=== PATIENT | female | born 1950 | race Caucasian/White ===

== ENCOUNTER 2020-07-25 14:16 | Outpatient (REF) | payer MEDICARE, OTHER, SELFPAY | END 2020-07-25 14:17 | disposition home or self-care (01) | LOC: HO.LAB 14:16 | PROVIDERS: Visit Provider Internal Medicine | DX: Z20.822 Contact with and (suspected) exposure to COVID-19 (principal) | CPT/HCPCS: 36415; C9803; U0003 ==

== ENCOUNTER 2020-10-21 10:08 | Outpatient (REF) | payer MEDICARE, OTHER, SELFPAY ==
[2020-10-21 11:20] LABS: MANUAL DIFF FLAG NO
[2020-10-21 11:28] LABS: Basophils Percent Auto 0.3 % (0-2); Eosinophils Absolute Auto 0.1 X10*3/uL (0.0-0.4); Eosinophils Percent Auto 2.2 % (0-4); Hematocrit 41.2 % (37-47); Hemoglobin 13.1 g/dl (12.0-16.0); Imm Gran Abs Auto 0.04 X10*3/uL (0.00-0.03); Imm Gran Pct Auto 0.6 % (0.0-0.4); Lymphocytes Absolute Auto 1.9 X10*3/uL (1.2-4.9); Lymphocytes Percent Auto 29.8 % (20-40); Mean Corpuscular HGB Conc 31.8 g/dl (31.0-35.0); Mean Corpuscular Hemoglobin 30.1 pg (27.0-33.0); Mean Corpuscular Volume 94.7 fL (80-98); Mean Platelet Volume 10.7 fL (9.4-12.3); Monocytes Absolute Auto 0.6 X10*3/uL (0.1-1.2); Monocytes Percent Auto 8.8 % (2-11); Neutrophils Absolute Auto 3.7 X10*3/uL (2.0-8.3); Neutrophils Percent Auto 58.3 % (45-73); Platelet Count 221 X10*3/uL (160-400); Red Blood Count 4.35 X10*6/uL (4.20-5.50); Red Cell Distribution Width 13.2 % (11.0-16.0); White Blood Count 6.4 X10*3/uL (4.8-10.8)
[2020-10-21 12:05] LABS: Alanine Aminotransferase 33 U/L (0-31); Alkaline Phosphatase 76 U/L (39-117); Anion Gap 14 (12-20); Aspartate Amino Transferase 30 U/L (5-31); Bilirubin Total < 0.2 mg/dL (0.0-1.0); Blood Urea Nitrogen 21 mg/dL (9-16); Calcium 9.8 mg/dL (8.4-10.2); Carbon Dioxide 22 mmol/L (22-29); Chloride 111 mmol/L (96-108); Cholesterol 168 mg/dL; Estimated Glomerular Filt Rate > 60; Glucose Fasting 102 mg/dL (60-99); HDL Cholesterol 52 mg/dL; LDL Cholesterol Calculated 90 mg/dl; Potassium 4.7 mmol/L (3.3-5.1); Sodium 142 mmol/L (135-145); Thyroid Stimulating Hormone 2.14 uIU/mL (0.32-4.0); Total Protein 6.5 g/dL (6.5-8.0); Triglycerides 132 mg/dL; Vitamin D 25-OH Total 30.2 ng/mL (>30)
[2020-10-21 12:12] LABS: Folate > 20.0 ng/mL (> or = 4.0); Vitamin B12 1020 pg/mL (200-900)
== END 2020-10-21 10:09 | disposition home or self-care (01) ==
LOC: HO.HMGCLDS 10:08
PROVIDERS: PCP Internal Medicine; Visit Provider Internal Medicine
DX: E78.00 Pure hypercholesterolemia, unspecified (principal); E03.9 Hypothyroidism, unspecified; E66.01 Morbid (severe) obesity due to excess calories; G47.33 Obstructive sleep apnea (adult) (pediatric)
CPT/HCPCS: 36415; 80053; 80061; 82306; 82607; 82746; 84443; 85025

== ENCOUNTER 2020-12-22 13:47 | Outpatient (REF) | payer MEDICARE, OTHER, SELFPAY ==
--- NOTE | ~2020-12-22 | XR_ITS ---
EXAMINATION: XR LUMBAR SPINE XR HIP, RIGHT CLINICAL INFORMATION: Low back pain COMPARISON: Lumbar spine radiograph from 12/24/2018, right hip radiograph from 07/22/2014 TECHNIQUE: 3 views of the lumbar spine. 2 views of the right hip FINDINGS: There are 5 nonrib-bearing lumbar-type vertebral bodies. No acute visible fracture or dislocation. Status post posterior spinal fusion of L2-L3 with bilateral transpedicular screws, rods, and disc spaces are L2-L3. Mild multilevel degenerative changes with disc space narrowing, endplate sclerosis, osteophyte formation, and facet arthropathy. Vertebral body heights and spaces are otherwise maintained. Moderate degenerative changes of the right femoral acetabular joint with joint space narrowing, sclerosis, and periarticular osteophyte formation. Posterior elements are intact. Paraspinal soft tissues are unremarkable. Atherosclerotic calcifications of the aorta. Visualized bowel gas. XR/XR hip RT min 2V IMPRESSION: 1. No acute visible fracture or dislocation. 2. Status post posterior spinal fusion of L2-L3 with intact spinal hardware. 3. Mild multilevel degenerative changes. 4. Moderate degenerative changes of the right femoral acetabular joint.
--- NOTE | ~2020-12-22 | XR_ITS ---
EXAMINATION: XR LUMBAR SPINE XR HIP, RIGHT CLINICAL INFORMATION: Low back pain COMPARISON: Lumbar spine radiograph from 12/24/2018, right hip radiograph from 07/22/2014 TECHNIQUE: 3 views of the lumbar spine. 2 views of the right hip FINDINGS: There are 5 nonrib-bearing lumbar-type vertebral bodies. No acute visible fracture or dislocation. Status post posterior spinal fusion of L2-L3 with bilateral transpedicular screws, rods, and disc spaces are L2-L3. Mild multilevel degenerative changes with disc space narrowing, endplate sclerosis, osteophyte formation, and facet arthropathy. Vertebral body heights and spaces are otherwise maintained. Moderate degenerative changes of the right femoral acetabular joint with joint space narrowing, sclerosis, and periarticular osteophyte formation. Posterior elements are intact. Paraspinal soft tissues are unremarkable. Atherosclerotic calcifications of the aorta. Visualized bowel gas. XR/XR lumbar spine 2-3V IMPRESSION: 1. No acute visible fracture or dislocation. 2. Status post posterior spinal fusion of L2-L3 with intact spinal hardware. 3. Mild multilevel degenerative changes. 4. Moderate degenerative changes of the right femoral acetabular joint.
== END 2020-12-22 13:48 | disposition home or self-care (01) ==
LOC: HO.HMGCX 13:47
PROVIDERS: PCP Internal Medicine; Visit Provider Internal Medicine
DX: M54.5 Low back pain (principal); M43.26 Fusion of spine, lumbar region
CPT/HCPCS: 72100; 73502

== ENCOUNTER → 2021-02-01 09:40 | Outpatient (BNVA) | payer MEDICARE, OTHER, SELFPAY | PROVIDERS: PCP Internal Medicine; Visit Provider Orthopaedic Surgery | DX: M54.9 Dorsalgia, unspecified (principal) | CPT/HCPCS: 99202 ==

== ENCOUNTER 2021-07-17 10:29 | Outpatient (REF) | payer MEDICARE, OTHER, SELFPAY ==
[2021-07-17 11:57] LABS: MANUAL DIFF FLAG NO
[2021-07-17 12:15] LABS: Basophils Percent Auto 0.5 % (0-2); Eosinophils Absolute Auto 0.1 X10*3/uL (0.0-0.4); Eosinophils Percent Auto 1.7 % (0-4); Hematocrit 42.7 % (37.0-47.0); Hemoglobin 13.7 g/dl (12.0-16.0); Imm Gran Abs Auto 0.05 X10*3/uL (0.00-0.03); Imm Gran Pct Auto 0.8 % (0.0-0.4); Lymphocytes Percent Auto 30.7 % (20-40); Mean Corpuscular HGB Conc 32.1 g/dl (31.0-35.0); Mean Corpuscular Hemoglobin 30.4 pg (27.0-33.0); Mean Corpuscular Volume 94.9 fL (80.0-98.0); Mean Platelet Volume 10.6 fL (9.4-12.3); Monocytes Absolute Auto 0.5 X10*3/uL (0.1-1.2); Monocytes Percent Auto 7.7 % (2-11); Neutrophils Absolute Auto 3.9 x10*3/uL (2.0-8.3); Neutrophils Percent Auto 58.6 % (45-73); Platelet Count 247 X10*3/uL (160-400); Red Cell Distribution Width 13.6 % (11.0-16.0); White Blood Count 6.6 X10*3/uL (4.8-10.8)
[2021-07-17 12:34] LABS: Alanine Aminotransferase 39 U/L (0-31); Albumin Level 4.1 g/dL (3.5-5.0); Alkaline Phosphatase 81 U/L (39-117); Anion Gap 12 (12-20); Aspartate Amino Transferase 32 U/L (5-31); Bilirubin Total 0.5 mg/dL (0.0-1.0); Blood Urea Nitrogen 13 mg/dL (9-16); Calcium 10.1 mg/dL (8.4-10.2); Carbon Dioxide 26 mmol/L (22-29); Chloride 110 mmol/L (96-108); Cholesterol 155 mg/dL; Estimated Glomerular Filt Rate > 60; Glucose Fasting 119 mg/dL (60-99); HDL Cholesterol 46 mg/dL; LDL Cholesterol Calculated 80 mg/dl; Potassium 4.3 mmol/L (3.3-5.1); Sodium 144 mmol/L (135-145); Total Protein 6.6 g/dL (6.5-8.0); Triglycerides 148 mg/dL
[2021-07-17 12:38] LABS: Thyroid Stimulating Hormone 1.94 uIU/mL (0.32-4.0); Vitamin D 25-OH Total 33.3 ng/mL (>30)
== END 2021-07-17 10:30 | disposition home or self-care (01) ==
LOC: HO.HMGCLDS 10:29
PROVIDERS: PCP Internal Medicine; Visit Provider Internal Medicine
DX: E78.00 Pure hypercholesterolemia, unspecified (principal); E03.9 Hypothyroidism, unspecified; M54.50 Low back pain, unspecified
CPT/HCPCS: 36415; 80053; 80061; 82306; 84443; 85025

== ENCOUNTER 2022-02-27 10:49 | Outpatient (REF) | payer MEDICARE, OTHER, SELFPAY ==
[2022-02-27 14:11] LABS: MANUAL DIFF FLAG NO
[2022-02-27 14:21] LABS: Basophils Percent Auto 0.5 % (0-2); Eosinophils Absolute Auto 0.2 X10*3/uL (0.0-0.4); Eosinophils Percent Auto 2.4 % (0-4); Hematocrit 43.7 % (37.0-47.0); Hemoglobin 13.9 g/dl (12.0-16.0); Imm Gran Abs Auto 0.03 X10*3/uL (0.00-0.03); Imm Gran Pct Auto 0.5 % (0.0-0.4); Lymphocytes Absolute Auto 1.7 X10*3/uL (1.2-4.9); Lymphocytes Percent Auto 27.6 % (20-40); Mean Corpuscular HGB Conc 31.8 g/dl (31.0-35.0); Mean Corpuscular Hemoglobin 29.8 pg (27.0-33.0); Mean Corpuscular Volume 93.8 fL (80.0-98.0); Mean Platelet Volume 11.1 fL (9.4-12.3); Monocytes Absolute Auto 0.5 X10*3/uL (0.1-1.2); Monocytes Percent Auto 8.2 % (2-11); Neutrophils Absolute Auto 3.8 x10*3/uL (2.0-8.3); Neutrophils Percent Auto 60.8 % (45-73); Platelet Count 235 X10*3/uL (160-400); Red Blood Count 4.66 X10*6/uL (4.20-5.50); Red Cell Distribution Width 12.9 % (11.0-16.0); White Blood Count 6.3 X10*3/uL (4.8-10.8)
[2022-02-27 14:35] LABS: Alanine Aminotransferase 22 U/L (0-31); Albumin Level 4.1 g/dL (3.5-5.0); Alkaline Phosphatase 82 U/L (39-117); Anion Gap 14 (12-20); Aspartate Amino Transferase 22 U/L (5-31); Bilirubin Total 0.5 mg/dL (0.0-1.0); Blood Urea Nitrogen 14 mg/dL (9-16); Calcium 9.6 mg/dL (8.4-10.2); Carbon Dioxide 24 mmol/L (22-29); Chloride 110 mmol/L (96-108); Cholesterol 122 mg/dL; Estimated Glomerular Filt Rate > 60; Glucose Fasting 114 mg/dL (60-99); HDL Cholesterol 43 mg/dL; LDL Cholesterol Calculated 62 mg/dl; Potassium 4.6 mmol/L (3.3-5.1); Sodium 143 mmol/L (135-145); Total Protein 6.4 g/dL (6.5-8.0); Triglycerides 87 mg/dL
[2022-02-27 14:57] LABS: Free T4 (Free Thyroxine) 1.07 ng/dL (0.71-1.85); Thyroid Stimulating Hormone 1.08 uIU/mL (0.32-4.0)
== END 2022-02-27 10:50 | disposition home or self-care (01) ==
LOC: HO.HMGCLDS 10:49
PROVIDERS: PCP Internal Medicine; Visit Provider Internal Medicine
DX: E66.01 Morbid (severe) obesity due to excess calories (principal); E78.00 Pure hypercholesterolemia, unspecified; E03.9 Hypothyroidism, unspecified
CPT/HCPCS: 36415; 80053; 80061; 84439; 84443; 85025

== ENCOUNTER 2023-03-16 09:40 | Outpatient (REF) | payer MEDICARE, OTHER, SELFPAY | END 2023-03-16 09:41 | disposition home or self-care (01) | LOC: HO.MAMMO 09:40 | PROVIDERS: PCP Internal Medicine; Visit Provider Internal Medicine | DX: Z12.31 Encounter for screening mammogram for malignant neoplasm of breast (principal) | CPT/HCPCS: 77063; 77067 ==

== ENCOUNTER → 2023-03-16 09:45 | Outpatient (BNV) | payer MEDICARE, OTHER, SELFPAY | PROVIDERS: PCP Internal Medicine; Visit Provider Radiology Diagnostic Radiology | DX: Z12.31 Encounter for screening mammogram for malignant neoplasm of breast (principal) | CPT/HCPCS: 77063; 77067 ==

== ENCOUNTER 2024-01-02 13:11 | Outpatient (AMB) | payer MEDICARE, OTHER, SELFPAY ==
[2024-01-02 13:17] VITALS: BP 102/64; PULSE 52; O2SAT 99; BMI 39.5
--- NOTE | 2024-01-02 13:17 | A.OFFVIS_ITS ---
Vital Signs 01/02/24 13:17 Height 5 ft 4.5 in Weight 234 lb BMI 39.5 BP 102/64 Blood Pressure Location Lt brachial Position Sitting Pulse 52 Pulse Source Pulse Oximeter Pulse Oximetry (%) 99 Oxygen Delivery Method Room Air Intake Visit Reasons: akosua Intake Note: pt is here as a new patient, for follow up of AKOSUA, and needs a replacement machine. fax number to marily#[phone]. Gum Machine Operator Required: No Allergies codeine [CODEINE] Allergy (Intermediate, Unverified 01/02/24 13:33) HALLUCINATION morphine [MORPHINE] Allergy (Intermediate, Unverified 01/02/24 13:33) NAUSEA & VOMITING, HALLUCINATIONS, nausea and vomiting Codeine Phosphate Allergy (Unknown, Uncoded 01/02/24 13:33) nausea and vomiting Medication List - Last Reconciled 01/02/24 by Bev Niño MD atorvastatin 20 mg PO BEDTIME cyclobenzaprine 10 mg PO TID PRN doxycycline calcium PO levothyroxine (Synthroid) 50 mcg PO DAILY magnesium aspart,citrate,oxide mg PO .bid PRN meloxicam 7.5 mg PO DAILY PRN mirabegron ER (Myrbetriq) 25 mg PO DAILY multivitamin (Daily Multi-Vitamin tablet) 1 tab PO DAILY semaglutide (weight loss) (Wegovy) 1 mg subcut Q7D tizanidine 4 mg PO BID PRN tramadol 50 mg PO .prn vitamin B complex 1 cap PO DAILY Do you need a note to return to daycare/school/sports/work: No HPI HPI akosua: Details: This 73 years old female, is a case of obstructive sleep apnea, and has been using CPAP regularly Her last sleep study was in July 2018 when she had CPAP titration and determine to have moderately severe obstructive sleep apnea. She she was titrated to pressure of 11 cm. Has been using her CPAP very regularly all along, with a nasal mask, And she benefitted from its use. Lately she is having problem with the CPAP device. There is increased air leak, and she has some residual apneas. She is feeling more tired and sleepy during the daytime. She feels that she is not getting enough pressure . Her CPAP device is quite old and she needs replacement. She had COVID infection last year and since then she has somewhat increased bouts of cough and nasal congestion. THIS PATIENT HAS HISTORY OF GROSS OBESITY FOR MANY YEARS, HAS HAD LAPAROSCOPIC GASTRIC SLEEVE SURGERY, AFTER WHICH SHE LOST ABOUT 100 LB OF WEIGHT. BUT RECENTLY SHE HAS REGAINED MOST OF THE WEIGHT. [facility] Medical History (Updated 01/02/24 @ 14:03 by Bev Niño MD) AKOSUA on CPAP Obesity (BMI 30-39.9) Urinary urgency Rosacea Hypothyroidism Hypercholesteremia Surgical History History of removal of laparoscopic gastric banding device Hx of laparoscopic gastric banding H/O Spinal surgery Social History Patient Tobacco Use Status: Former Tobacco user Current occupational status: retired 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 Review of Systems Const All systems reviewed & are unremarkable except as noted in HPI and below Eyes Reports no additional complaints ENT Reports nasal congestion (Mild off and on) Card Denies syncope, Denies irregular heart rhythm and Denies leg edema Resp Reports as per HPI GI Reports no additional complaints Reports other (HAS CHRONIC URINARY URGENCY PROBLEMS) Musc Reports back pain and Reports myalgias Skin/Breast Reports system reviewed and no additional complaints, except as documented Neuro Reports no additional complaints and Denies syncope Psych Reports no additional complaints Endo Reports other (Diabetes mellitus being controlled with meds) Aller/Immun Reports no additional complaints Physical Exam Vital Signs: Last Vital Signs Pulse 52 01/02/24 13:17 BP 102/64 01/02/24 13:17 Pulse Ox 99 01/02/24 13:17 Oxygen Delivery Method Room Air 01/02/24 13:17 BMI result Body Mass Index 39.5 Const General: healthy appearing, comfortable, no acute distress, alert and awake Orientation/consciousness: patient oriented x3 HEENT Head: Yes normal to inspection General nose exam: No nasal polyps present, No nasal discharge present and Other nasal findings present (No active nasal congestion at this time) Face and sinus: Yes sinuses nontender Mouth: oropharynx abnormals (Crowded oropharynx, Mallampati class 3) Throat: Yes posterior oropharynx normal Eyes General: appearance normal, both eyes and all related structures Neck Neck: Yes normal visual inspection, Yes no lymphadenopathy, Yes trachea midline and Yes no JVD Thyroid: Thyroid normal Chest Chest palpation & inspection: normal inspection of the chest, normal palpation of entire chest wall and no tenderness Resp Other: Percussion note is resonant, breath sounds are equal on both sides slightly distant, No wheezes rhonchi or crepitations are heard Cardio Palpation: normal PMI Rate: regular rate Rhythm: regular rhythm Heart sounds: no gallops and no murmurs Peripheral pulses: Peripheral pulses 2+ throughout GI Palpation (GI): Soft to palpation, nontender, No hepatosplenomegaly present and no masses Auscultation: normal bowel sounds Back/Spine/Pelvis Thoracic/Lumbar Spine: thoracic and lumbar spine normal to inspection and thoraco-lumbar ROM limited Skin General skin exam: no rashes or lesions noted Neuro General: patient oriented x3 and no focal motor deficits Cranial nerves: Yes CN's II-XII intact bilaterally Extrem General: Yes normal to inspection, Yes no clubbing, cyanosis or edema and Yes no calf tenderness Psych Appearance: grossly normal and well kempt Speech and movement: Normal speech and movement present Results Reviewed Results Reviewed: COMPLIANCE REPORT FOR THE LAST 30 NIGHTS IS REVIEWED. PATIENT HAS USED 28/30 NIGHTS, 93%. AVERAGE USE PER NIGHT 4 HOURS 23 MINUTES. PRESSURE 11 CM. AIR LEAK MAXIMUM 78 L/MINUTE IS NOTED. RESIDUAL AHI 2.1 Assessment & Plan Assessment & Plan (1) Obesity (BMI 30-39.9): Comment: PATIENT IS A KNOWN CASE OF CHRONIC OBESITY, HAS HAD GASTRIC SURGERY IN THE PAST, HAS REGAINED SOME WEIGHT. Code(s): E66.9 - Obesity, unspecified Category: Medical Plan: ADVISED TO WATCH HER DIET AND PERHAPS SHE SHOULD JOIN THE WEIGHT MANAGEMENT PROGRAM AGAIN (2) AKOSUA on CPAP: Comment: PATIENT IS KNOWN CASE OF OBSTRUCTIVE SLEEP APNEA FOR MANY YEARS, LAST SLEEP STUDY IN 2018 AND 2019. HAS BEEN USING CPAP VERY REGULARLY, WITH NASAL MASK AND PRESSURE OF 11 CM, SHE HAS BEEN BENEFITING FROM THE USE OF CPAP. IN FACT SHE WOULD NOT BE ABLE TO SLEEP WITHOUT THE CPAP ON. LATELY HER MACHINE DOES NOT SEEM TO BE FUNCTIONING GOOD. IT IS MORE THAN 5 YEARS OLD. Code(s): G47.33 - Obstructive sleep apnea (adult) (pediatric) Category: Medical Plan: PATIENT NEEDS TO HAVE A NEW CPAP Coding Level of Care Code Est Pt Level 4 (61713) Diagnoses Obesity (BMI 30-39.9) E66.9 AKOSUA on CPAP G47.33
== END 2024-01-02 13:49 | disposition home or self-care (01) ==
PROVIDERS: PCP Internal Medicine; Visit Provider Internal Medicine
DX: E66.9 Obesity, unspecified (principal); G47.33 Obstructive sleep apnea (adult) (pediatric)
CPT/HCPCS: 99214

== ENCOUNTER → 2024-01-02 13:11 | Outpatient (BNVA) | payer MEDICARE, OTHER, SELFPAY | PROVIDERS: PCP Internal Medicine; Visit Provider Internal Medicine | DX: G47.33 Obstructive sleep apnea (adult) (pediatric) (principal); E66.9 Obesity, unspecified; Z68.39 Body mass index [BMI] 39.0-39.9, adult | CPT/HCPCS: 99212 ==

== ENCOUNTER 2024-03-21 09:53 | Outpatient (REF) | payer MEDICARE, OTHER, SELFPAY ==
--- NOTE | ~2024-03-21 | MM_ITS ---
EXAMINATION: MM SCREENING DIGITAL BREAST TOMOSYNTHESIS, BILATERAL CLINICAL INFORMATION: Screening. Asymptomatic. COMPARISON: Mammography: Comparison is made with available priors TECHNIQUE: Digital breast mammography with tomosynthesis is performed in both the craniocaudal and mediolateral oblique views along with computer-aided detection (CAD). FINDINGS: There are scattered areas of fibroglandular density (ACR BI-RADS breast composition Category b). There are no significant masses, abnormal calcifications, or other abnormalities. MM/MM tomosynthesis screening BI IMPRESSION: No mammographic evidence of malignancy. ASSESSMENT: BI-RADS BI-RADS 1 - Negative RECOMMENDATION: Routine annual mammography screening. 1 year F/U This examination should not preclude the clinical evaluation of a suspicious palpable abnormality. This patient's information was entered into a reminder system with a target due date for their next mammogram. Electronically signed by: Danette Gilbert DO 04/03/2024 08:55 AM EDT
== END 2024-03-21 09:54 | disposition home or self-care (01) ==
LOC: HO.MAMMO 09:53
PROVIDERS: PCP Internal Medicine; Visit Provider Internal Medicine
DX: Z12.31 Encounter for screening mammogram for malignant neoplasm of breast (principal)
CPT/HCPCS: 77063; 77067

== ENCOUNTER → 2024-03-21 10:00 | Outpatient (BNV) | payer MEDICARE, OTHER, SELFPAY | PROVIDERS: PCP Internal Medicine; Visit Provider Internal Medicine | DX: Z12.31 Encounter for screening mammogram for malignant neoplasm of breast (principal) | CPT/HCPCS: 77063; 77067 ==

== ENCOUNTER 2024-04-06 15:28 | Outpatient (AMB) | payer MEDICARE, OTHER, SELFPAY ==
[2024-04-06 15:40] VITALS: BP 102/68; PULSE 62; O2SAT 98; BMI 38.1
--- NOTE | 2024-04-06 15:40 | A.OFFVIS_ITS ---
Vital Signs 04/06/24 15:40 Height 5 ft 4 in Weight 222 lb BMI 38.1 BP 102/68 Blood Pressure Location Lt brachial Position Sitting Pulse 62 Pulse Source Pulse Oximeter Pulse Oximetry (%) 98 Oxygen Delivery Method Room Air Intake Visit Reasons: Obstructive sleep apnea Intake Note: pt is here for follow up of akosua, received new cpap Big Machine Consultant Required: No Allergies codeine [CODEINE] Allergy (Intermediate, Unverified 04/06/24 15:58) HALLUCINATION morphine [MORPHINE] Allergy (Intermediate, Unverified 04/06/24 15:58) NAUSEA & VOMITING, HALLUCINATIONS, nausea and vomiting Codeine Phosphate Allergy (Unknown, Uncoded 04/06/24 15:58) nausea and vomiting Medication List - Last Reconciled 04/06/24 by Bev Niño MD atorvastatin 20 mg PO BEDTIME cyclobenzaprine 10 mg PO TID PRN doxycycline calcium PO levothyroxine (Synthroid) 50 mcg PO DAILY magnesium aspart,citrate,oxide mg PO .bid PRN meloxicam 7.5 mg PO DAILY PRN mirabegron ER (Myrbetriq) 25 mg PO DAILY multivitamin (Daily Multi-Vitamin tablet) 1 tab PO DAILY semaglutide (weight loss) (Wegovy) 1 mg subcut Q7D tizanidine 4 mg PO BID PRN tramadol 50 mg PO .prn vitamin B complex 1 cap PO DAILY Do you need a note to return to daycare/school/sports/work: No HPI HPI Obstructive sleep apnea: Details: 73 YEARS OLD FEMALE A A KNOWN CASE OF OBSTRUCTIVE SLEEP APNEA WHO HAS BEEN USING CPAP FOR THE LAST FEW YEARS. SHE HAS RECEIVED THE NEW CPAP DEVICE WHICH IS WORKING WELL. SHE USES EVERY NIGHT REGULARLY . SHE DOES HAVE SOME AIR LEAK ESPECIALLY WHEN SHE IS IN LATERAL POSITION. WHEN SLEEPING IN SUPINE POSITION SHE DOES NOT HAVE ANY FEELING OF FAIRLY. ANYWAY SHE IS GETTING GOOD SLEEP FOR MORE THAN 6 HOURS EVERY NIGHT. SHE FEELS MORE ENERGETIC. SHE HAS BEEN TRYING TO LOSE WEIGHT AND IN FACT SINCE HER LAST VISIT SHE HAS LOST ABOUT 12 LB. SHE IS A CASE OF MORBID OBESITY WHICH WAS TREATED BY LAP BAND SURGERY AND LATER ON DUE TO COMPLICATIONS SHE HAD TO HAVE IT REMOVED. NOW SHE IS JUST WATCHING HER DIET. [facility] Medical History AKOSUA on CPAP Obesity (BMI 30-39.9) Urinary urgency Rosacea Hypothyroidism Hypercholesteremia Surgical History History of removal of laparoscopic gastric banding device Hx of laparoscopic gastric banding H/O Spinal surgery Social History Patient Tobacco Use Status: Former Tobacco user Current occupational status: retired 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 Review of Systems Const All systems reviewed & are unremarkable except as noted in HPI and below Eyes Reports no additional complaints ENT Reports nasal congestion (Mild off and on) Card Denies syncope, Denies irregular heart rhythm and Denies leg edema Resp Reports as per HPI GI Reports no additional complaints Reports other (HAS CHRONIC URINARY URGENCY PROBLEMS) Musc Reports back pain and Reports myalgias Skin/Breast Reports system reviewed and no additional complaints, except as documented Neuro Reports no additional complaints and Denies syncope Psych Reports no additional complaints Endo Reports other (Diabetes mellitus being controlled with meds) Aller/Immun Reports no additional complaints Physical Exam Vital Signs: Last Vital Signs Pulse 62 04/06/24 15:40 BP 102/68 04/06/24 15:40 Pulse Ox 98 04/06/24 15:40 Oxygen Delivery Method Room Air 04/06/24 15:40 BMI result Body Mass Index 38.1 Const General: healthy appearing, comfortable, no acute distress, alert and awake Orientation/consciousness: patient oriented x3 HEENT Head: Yes normal to inspection General nose exam: No nasal polyps present, No nasal discharge present and Other nasal findings present (No active nasal congestion at this time) Face and sinus: Yes sinuses nontender Mouth: oropharynx abnormals (Crowded oropharynx, Mallampati class 3) Throat: Yes posterior oropharynx normal Eyes General: appearance normal, both eyes and all related structures Neck Neck: Yes normal visual inspection, Yes no lymphadenopathy, Yes trachea midline and Yes no JVD Thyroid: Thyroid normal Chest Chest palpation & inspection: normal inspection of the chest, normal palpation of entire chest wall and no tenderness Resp Other: Percussion note is resonant, breath sounds are equal on both sides slightly distant, No wheezes rhonchi or crepitations are heard Cardio Palpation: normal PMI Rate: regular rate Rhythm: regular rhythm Heart sounds: no gallops and no murmurs Peripheral pulses: Peripheral pulses 2+ throughout GI Palpation (GI): Soft to palpation, nontender, No hepatosplenomegaly present and no masses Auscultation: normal bowel sounds Back/Spine/Pelvis Thoracic/Lumbar Spine: thoracic and lumbar spine normal to inspection and thoraco-lumbar ROM limited Skin General skin exam: no rashes or lesions noted Neuro General: patient oriented x3 and no focal motor deficits Cranial nerves: Yes CN's II-XII intact bilaterally Extrem General: Yes normal to inspection, Yes no clubbing, cyanosis or edema and Yes no calf tenderness Psych Appearance: grossly normal and well kempt Speech and movement: Normal speech and movement present Results Reviewed Results Reviewed: COMPLIANCE REPORT FOR THE LAST 30 NIGHTS IS REVIEWED. SHE USED CPAP 30/30 NIGHTS,. 100% AVERAGE USE IT PER NIGHT 6 HOURS 11 MINUTES. PRESSURE 13 CM. THERE IS MODERATE AMOUNT OF AIR LEAK. RESIDUAL AHI 6.7 WHICH IS MOST LIKELY DUE TO AIR LEAK. Assessment & Plan Assessment & Plan (1) Obesity (BMI 30-39.9): Comment: PATIENT IS A KNOWN CASE OF CHRONIC OBESITY, HAS HAD GASTRIC SURGERY IN THE PAST, ( LAB BAND ) HAD IT REMOVED DUE TO COMPLICATIONS. REGAINED SOME WEIGHT AND NOW TRYING TO KEEP IT UNDER CONTROL WITH DIET. HAS LOST ABOUT 12 LB OF WEIGHT SINCE HER LAST VISIT. Code(s): E66.9 - Obesity, unspecified Category: Medical Plan: DISCUSSED AGAIN AND STRESSED THAT SHE NEEDS TO CUT DOWN ON CALORIES INTAKE AND KEEP ON LOSING WEIGHT SLOWLY (2) AKOSUA on CPAP: Comment: PATIENT IS KNOWN CASE OF OBSTRUCTIVE SLEEP APNEA FOR MANY YEARS, LAST SLEEP STUDY IN 2018 AND 2019. HAS BEEN USING CPAP VERY REGULARLY, WITH NASAL MASK AND PRESSURE OF 13 CM, SHE HAS BEEN BENEFITING FROM THE USE OF CPAP. IN FACT SHE WOULD NOT BE ABLE TO SLEEP WITHOUT THE CPAP ON. NOW SHE HAS A NEW CPAP DEVICE WHICH IS WORKING WELL. SHE HAS SOME AIR LEAK PROBLEM WHEN SHE IS SLEEPING IN LATERAL POSITION. BUT SHE GETS GOOD SLEEP AND WAKES UP REFRESHED. Code(s): G47.33 - Obstructive sleep apnea (adult) (pediatric) Category: Medical Plan: ADVISED TO TIGHTEN THE STRAPS. KEEP ON USING CPAP REGULARLY. Coding Level of Care Code Est Pt Level 3 (52668) Diagnoses Obesity (BMI 30-39.9) E66.9 AKOSUA on CPAP G47.33
== END 2024-04-06 15:59 | disposition home or self-care (01) ==
PROVIDERS: PCP Internal Medicine; Visit Provider Internal Medicine
DX: E66.9 Obesity, unspecified (principal); G47.33 Obstructive sleep apnea (adult) (pediatric)
CPT/HCPCS: 99213

== ENCOUNTER → 2024-04-06 15:28 | Outpatient (BNVA) | payer MEDICARE, OTHER, SELFPAY | PROVIDERS: PCP Internal Medicine; Visit Provider Internal Medicine | DX: E66.9 Obesity, unspecified (principal); G47.33 Obstructive sleep apnea (adult) (pediatric); Z68.38 Body mass index [BMI] 38.0-38.9, adult; Z99.89 Dependence on other enabling machines and devices | CPT/HCPCS: 99212 ==

== ENCOUNTER 2024-06-19 13:34 | Outpatient (AMB) | payer MEDICARE, OTHER, SELFPAY ==
--- OUTSIDE RECORDS SUMMARY | 2024-06-19 13:37 | XMS_ITS ---
Author Organization [facility] Address [address] [place] [address] Care Team Providers Care Vehicle Fuel Systems Converter Name Role Phone Brenton Bonilla DO Primary Care Provider Unavail Wallace Wolf Jr Unavailable [phone] ALLERGIES Allergen (clinical drug ingredient) Drug/Non Drug Allergy documented on EMR Reaction Allergy Type Onset Date Status morphine Morphine Sulfate Unknown Drug Allergy Active codeine Codeine Sulfate Unknown Drug Allergy A ctive REASON FOR VISIT Patient presents today for a screening colonoscopy MEDICATIONS Medication SIG (Take, Route, Frequency, Duration) Notes Start Date End Date Status Vitamin D 1000 UNIT 1 tablet Orally Once a day for 30 day(s) Active Advil 200 MG 1 capsule with food or milk as needed Orally Three times a day/prn Active Synthroid 50 MCG 1 tablet on an empty stomach in the morning Orally Once a day Active Multi Vitamin/Minerals - as directed Ora lly once a day Active Meloxicam 15 MG 1 tablet Orally Once a day for 30 day(s) Active Atorvastatin Calcium 20 MG 1 tablet Oral ly Once a day Active Myrbetriq 50 MG 1 tablet Orally Once a day Active traMADol HCl 50 MG 1 tablet as needed O rally Once a day Active Sodium Sulfacetamide Wash 10 % 1 application Externally Act karina Wegovy 2.4 MG/0.75ML 0.75 mL Subcutaneou s for 30 day(s) Active Vitamin B 12 100 MCG as directed Orally Active tiZANidine HCl 4 MG 1 tablet at bedtime as needed Orally Once a day for 30 day(s) Active Sleep Aid 25 MG 1 tablet at bedtime as needed Orally Once a day for 30 day(s) Active Aller-Ease Active Melatonin 3 MG 1 tablet at bedtime as needed Orally Once a day for 30 day(s) Active SOCIAL HISTORY Tobacco Use: Social History Observation Description Date Details (start date - stop date) Former Smoker NA - NA Sex Assigned At : Social History Observation Description Sex Assigned At Unknown Tobacco Use/Smoking Question Answer Notes Patient is a former smoker How long has it been since you last smoked? > 10 years Alcohol Screen Question Answer Notes Did you have a drink contain ing alcohol in the past year? Yes How often did you have a dri nk containing alcohol in the past year? 4 or more times a week (4 points) How many drinks did you have on a typical day when you were drinking in the past year? 1 or 2 drinks (0 point) How often did you have 6 or more drinks on one occasion in the past year? Never (0 point) Points 4 Interpretation Positive PROBLEMS Problem Type ICD Code Onset Dates Problem Status W/U Status Risk SNOMED Code Notes Problem Long-term current use of high risk medication other than anticoagulant (Z79.899) Active confirmed 270101366 VITAL SIGNS BMI 36.00 kg/m2 05/18/2024 Blood pressure systolic 000 mm Hg 05/18/20 24 Blood pressure diastolic 00 mm Hg 024 Height 66 in 05/18/2024 Temperature 97.8 degrees Fahrenheit 05/18/20 24 Weight 223 lb 1 oz lbs 05/18/2024 Encounters Encounter Location Date Provider Diagnosis [facility] [address] [facility] [address] [place] [id number] 05/18/2024 Wallace Diana Jr Colon cancer screening Z12.11 and Long-term current use of high risk medication other than anticoagulant Z79.899 ASSESSMENTS Encounter Date Diagnosis Assessment Notes Treatment Notes Treatment Clinical Notes 05/18/2024 Colon cancer screening (ICD-10 - Z12.11) 05/18/2024 Long-term current use of high risk medication other than anticoagulant (ICD-10 - Z79.899) 05/18/2024 Other Colonoscopy material was printed PLAN OF TREATMENT Treatment Notes Assessment Notes Other Colonoscopy material was printed Future Test Test Name Order Date COLONOSCOPY 05/18/2024 Next Appt Details Follow Up: 1 Year, Reason: Progress Notes * Examination Category Sub-Category Detail Notes General Examination GENERAL APPEARANCE: in no ac [place] distress HEAD: normocephalic EYES: sclera non-icteric NECK/THYROID: no lymphadenopathy HEART: S1, S2 normal, no mu rmurs CHEST: normal shape and exp ansion LUNGS: clear to auscultatio n bilaterally ABDOMEN: soft, nontender, non distended, bowel sounds present, no organomegaly SKIN: anicteric EXTREMITIES: no clubbing, cyanosi s, or edema PSYCH: cognitive function i ntact ORAL CAVITY: mucosa moist
--- OUTSIDE RECORDS SUMMARY | 2024-06-19 13:37 | XMS_ITS ---
Author Organization [facility] Address [address] [place] [address] Care Team Providers Care [place] Administrator Name Role Phone Brenton Bonilla DO Primary Care Provider Unavail able Wallace Diana Jr Unavailable REASON FOR VISIT cancelled procedure Encounters Encounter Location Date Provider Diagnosis [facility] [address] [place] [address] 06/08/2024 Wallace Diana Jr PLAN OF TREATMENT No Information
--- OUTSIDE RECORDS SUMMARY | 2024-06-19 13:37 | XMS_ITS ---
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 Outpatient [address], [place] [id number] 06/09/2024 Wallace Diana Jr PLAN OF TREATMENT No Information
--- NOTE | 2024-06-19 13:38 | HO.SPINEOV ---
Vital Signs 06/19/24 13:43 Height 5 ft 4.5 in Weight 220 lb BMI 37.2 Intake Visit Reasons: LBP Intake Note: Ms. Hoang is here today c/o low back pain. Manager Energy Required: No Allergies codeine [CODEINE] Allergy (Intermediate, Verified 06/19/24 13:49) HALLUCINATION morphine [MORPHINE] Allergy (Intermediate, Verified 06/19/24 13:49) NAUSEA & VOMITING, HALLUCINATIONS, nausea and vomiting Codeine Phosphate Allergy (Unknown, Uncoded 04/06/24 15:58) nausea and vomiting Physical Exam Vital Signs: BMI result Body Mass Index 37.2 Assessment & Plan Assessment & Plan (1) Sacroiliitis, not elsewhere classified: Code(s): M46.1 - Sacroiliitis, not elsewhere classified Category: Medical Plan Dear colleague Thank you for referring Meredith Casey to the office today with a chief complaint of right SI joint pain. HPI: This 74-year-old female has been suffering from right SI joint pain for many years. She had multiple injections that gave her more than 80% relief but the pain continues to return. She is referred for the discussion of the possible SI joint fusion. The pain gets worse with prolonged sitting and laying on her side. She can not travel in the car for long distances. She can stand for long periods of time. The only time when she is not feeling pain is when she lays down on her back. She recently had a right hip surgery done that relieved her hip pain. She suddenly developed a pain radiating from the hip to the front of the thigh which was addressed with a right hip injection. The following conservative treatment options were tried without success antiinflammatories, tylenol, physical therapy, cortisone shots PMH: Umbilical hernia repair, lap band surgery, lumbar fusion L2-3, right hip replacement, sleep apnea, hypothyroidism Medications: Atorvastatin, Synthroid, tramadol, meloxicam, tizanidine, multivitamins, Advil, melatonin Allergies: Codeine and morphine Social history: Lives alone on the 2nd floor Physical Exam: Pleasant female. There is weakness of the iliopsoas 3/5 on the right side. SI joint provocative tests are positive. Straight leg raise is negative. Radiological Studies: MRI done at [facility] in 2021 shows status post L2-3 lumbar fusion. The remainder of the level shows mild lumbar spondylosis. Impression/Plan: This patient is clinically suffering from a right SI joint pathology that responded well to injections and therefore she becomes a good candidate for a right SI joint fusion. I explained the procedure and expected outcome. She is aware that this will be a day surgery. She will have the fire department bring her into her home after surgery and will stay confined to her home for approximately 3 weeks. She has done exactly the same with her hip surgery. She will see Anesthesia for clearance. She is in transit of primary care physicians and therefore preoperative clearance is not possible. Fortunately, her medical history is not that complicated. Thank you for allowing me to participate in your patients care. total time spent was 50 minutes in counseling ,coordination of plan, personal review of imaging, surgical decision making and subsequent plan Pierre Evans MD, PhD Spine Fellowship Trained Neurosurgeon Director, [facility] Coding Level of Care Code New Pt Level 4 (30891) Diagnoses Sacroiliitis, not elsewhere classified M46.1
--- OUTSIDE RECORDS SUMMARY | 2024-06-19 13:38 | XMS_ITS ---
[facility] [place] Address [address] 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 Name Role Phone Brenton Bonilla MD Primary Care Provider Unavail able Black, Sejal Unavailable [phone] Allergies Allergen (clinical drug ingredient) Drug/Non Drug Allergy documented on EMR Reaction Allergy Type Onset Date Status Codeine Phosphate nausea, halucinations Drug Allergy Active morphine Morphine nausea, halucinations Drug Allergy Active REASON FOR VISIT Painful Toe(s), Ingrown Nail, Foot pain Medications Medication SIG (Take, Route, Frequency, Duration) Notes Start Date End Date Status Atorvastatin Calcium 20 MG 1 tablet Oral ly Once a day Active Vitamin D3 125 MCG (5000 UT) 1 capsule Orally Once a day Active Meloxicam 15 MG 1 tablet Orally Once a day Active Synthroid 50 MCG 1 tablet in the morn ing on an empty stomach Orally Once a day Active tiZANidine HCl 4 MG 1 tablet at bedtime as needed Orally Once a day Active Mirabegron ER 50 MG 1 tablet Orally Once a day Active Sodium Sulfacetamide Wash 10 % 1 application Externally Act karina Magnesium Glycinate Active traMADol HCl 50 MG 1 tablet as needed Orally Once a day Active Wegovy 2.4 MG/0.75ML 0.75 mL Subcutaneous Active Vitamin B12 1000 MCG 1 tablet Orally Onc e a day Active Melatonin Active Magnesium Oxide 400 MG 1 tablet as neede d Orally Once a day Unknown advil Active Aller-Chlor Active Cyanocobalamin 1000 MCG 1 tablet Orally Once a day Unknown Multivitamin Active Wegovy 1 MG/0.5ML 0.5 mL Subcutaneous Unknown Social History Tobacco Use: Social History Observation Description Date Details (start date - stop date) Former Smoker NA - NA Tobacco Use/Smoking Question Answer Notes Are you a: former smoker Additional Findings: Tobacco Non-User Ex-heavy c igarette smoker (20-30/day) Alcohol Screen Question Answer Notes Did you have a drink contain ing alcohol in the past year? Yes How often did you have a dri nk containing alcohol in the past year? 2 to 4 times a month (2 points) Points 2 Interpretation Negative Tobacco use other than smoking: Question Answer Notes Are you an other tobacco user? No Problems Problem Type SNOMED Code ICD Code Onset Dates Problem Status W/U Status Risk Notes Problem Acquired hammer toe of right foot (5220982733556285) Other hammer toe(s) (acquired), right foot (M20.41) Active confirmed Problem Localized, primary osteoarthritis of the ankle and/or foot (074456678) Arthritis of joint of lesser toe, right (M19.071) Active confirmed Problem [id number] Hammertoe of right foot (M20.41) Active confirmed Vital Signs Height 5 ft 4.5 in in 03/16/2024 Weight 225 lbs lbs 03/16/2024 BMI 38.02 kg/m2 03/16/2024 Encounters Encounter Location Date Provider Diagnosis [facility] [address] [address] 03/16/2024 Sejal Black Pain in right toe(s) M79.674 ; Ingrown nail L60.0 ; Other hammer toe(s) (acquired), right foot M20.41 ; Arthritis of joint of lesser toe, right M19.071 ; Subluxation of metatarsophalangeal joint of toe, initial encounter S93.149A ; Pain in left foot M79.672 ; Pain in left ankle and joints of left foot M25.572 ; Bursitis of intermetatarsal bursa of left foot M77.52 ; Metatarsalgia, left foot M77.42 and Hammertoe of right foot M20.41 Assessments Encounter Date Diagnosis (ICD Code) Assessment Notes Treatment Notes Treatment Clinical Notes Section Notes 03/16/2024 Pain in right toe(s) (ICD-10 - M79.674) 03/16/2024 Ingrown nail (ICD-10 - L60.0) 03/16/2024 Other hammer toe(s) (acquired), right foot (ICD-10 - M20.41) 03/16/2024 Arthritis of joint o f lesser toe, right (ICD-10 - M19.071) 03/16/2024 Subluxation of metatarsophalangeal joint of toe, initial encounter (ICD-10 - S93.149A) 03/16/2024 Pain in left foot (ICD-10 - M79.672) 03/16/2024 Pain in left ankle a nd joints of left foot (ICD-10 - M25.572) 03/16/2024 Bursitis of intermetatarsal bursa of left foot (ICD-10 - M77.52) 03/16/2024 Metatarsalgia, left foot (ICD-10 - M77.42) 03/16/2024 Hammertoe of right f oot (ICD-10 - M20.41) Plan Of Treatment Next Appt Details Follow Up: 2 Weeks, Reason: NA Progress Notes * Meredith CASEY CDOB:[birth year] (73 yo F)Acc No.[id number]:03/16/2024 Progress Notes Patient:?Meredith Casey Provider:?Sejal Ennis DPM :1950???Age:73 Y???Sex:Female D ate:03/16/2024 Address:[address] [place], [place] [id number] Pcp:Brenton Bonilla MD Subjective: * Chief Complaints: * ???Painful Toe(s)Ingrown Allison lFoot pain * HPI: ???Toe pain:?Nature:?tenderness.?Location:?Right foot.?Duration:?several months.?Course:?worse.?Aggravated by:?any pressure, shoes.?Treatments:?rest/alter normal daily activity, change in shoes.?Foot Pain:?Location:?Bottom, Forefoot, LEFT.?Duration:?several weeks.?Course:?worse.?Treatments:?rest/alter normal daily activity.? * ROS:?General/Constitutional:?Nausea?denies.?Vomiting?denies.?Hunger Thirst?denies.?Loss appetite?denies.?Chills?denies.?Fatigue?admits.?Fever?denies.?Night Sweats?denies.?Unexplained weight loss?denies.?Unexplained weight gain?denies.?HEENTM:?Dentures?denies.?Dizziness?denies.?Glasses/contacts?admits.?Retinopathy?de nies.?Blurred/double vision?denies.?TMJ?denies.?Discharge/drainage?denies.?Implants?denies.?Sore throat?denies.?Dental implants?admits.?Hard of hearing ?denies.?Difficulty chewing/swallowing/speaking?denies.?Nose bleeds?denies.?Sore mouth?denies.?Respiratory:?On Oxygen?denies.?Pneumonia/pleurisy?denies.?Bronchitis?denies.?Emphysema?denies.?C oughing?denies.?Cough blood?denies.?Shortness of breath?denies.?Wheezing?admits.?Cardiovascular:?Pacemaker?denies.?MVP?denies.?WPW?denies.?CHF?denies.?Heart attack?denies.?Septal defect?denies.?Rapid beat?denies.?Chest pain ?denies.?Atrial Fib.?denies.?Murmur/Palpitations?denies.?Gastrointestinal:?Hemorrhoids?denies.?Stomach/Abdominal pain?denies.?Dark blood stool?denies.?Irritable bowel ?denies.?Constipation?denies.?Diarrhea?denies.?Hematology:?Swelling?denies.?Clots?denies.?Varicose Veins?admits.?Bruising?denies.?Bleeding problem?denies.?Genitourinary:?Blood urine?denies.?Frequent/Painfu/urination/bladder control?denies.?Kidney stones?admits.?Infection (UTI)?denies.?Nephropathy?denies.?sex trans dis (STD)?denies.?Prostate?denies.?Musculoskeletal:?Hammertoes?denies.?Bunions?denies.?Back Pain?admits.?Muscle Cramps/ Resting?admits.?Muscle cramps / walking?admits.?Generalized aches and pains?admits.?Weakness?denies.?Integ.:?Gonzalez?denies.?Scars?denies.?Corns/calluses?admits.?Ingrown nails?admits.?Painful nails?admits.?Open Sores?denies.?Rashes?denies.?Neurologic:?Difficulty sleeping?denies.?Brain disorder?denies.?Numbness?denies.?Balance trouble?denies.?Confusion?denies.?Fainting/blackouts?denies.?Tingling?denies.?Tr emors?denies.? * Medical History:? * Surgical History:?umbilical hernia repair tubal surgery secondary to tubal blockage lap band 04/01/19right hip replacement [id number]/[id number] decompression and fusion with intrumentation 01/2015torn meniscus- left knee * Hospitalization/Major Diagno stic Procedure:?Denies Past Hospitalization * Family History:?Mother: alinas e, breast cancer, diagnosed with Family history of arthritis, Other malignant neoplasm of unspecified site.?Father: , CHF, dementia,, diagnosed with Unspecified heart disease.?Siblings: diagnosed with Family history of arthritis.? * Social History:?Tobacco Use:?Tobacco Use/Smoking?Are you a:?former smoker ?Additional Findings: Tobacco Non-User?Ex-heavy cigarette smoker (20- 30/day) ?Tobacco use other than smoking?Are you an other tobacco user??No ???Drugs/Alcohol:?Drugs?Have you used drugs other than those for medical reasons in the past 12 months??No ?Alcohol Screen?Did you have a drink containing alcohol in the past year??Yes ?How often did you have a drink containing alcohol in the past year??2 to 4 times a month (2 points) ?Points?2 ?Interpretation?Negative ???Miscellaneous:?Caffeine: yes, frequency: 1 cup per day. ?no Children. ?Exercise: yes, golf. ?Marital status: single. 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 * Medications:?TakingMelatonin Aller-Chlor advil Vitamin B12 1000 MCG Tablet Extended Release 1 tablet Orally Once a dayMagnesium Glycinate Wegovy 2.4 MG/0.75ML Solution Auto-injector 0.75 mL Subcutaneous traMADol HCl 50 MG Tablet 1 tablet as needed Orally Once a daySodium Sulfacetamide Wash 10 % Liquid 1 application Externally Mirabegron ER 50 MG Tablet Extended Release 24 Hour 1 tablet Orally Once a dayAtorvastatin Calcium 20 MG Tablet 1 tablet Orally Once a daySynthroid 50 MCG Tablet 1 tablet in the morning on an empty stomach Orally Once a dayMeloxicam 15 MG Tablet 1 tablet Orally Once a daytiZANidine HCl 4 MG Tablet 1 tablet at bedtime as needed Orally Once a dayVitamin D3 125 MCG (5000 UT) Capsule 1 capsule Orally Once a dayMultivitamin Taking Melatonin Taking Aller-Chlor Taking advil Taking Vitamin B12 1000 MCG Tablet Extended Release 1 tablet Orally Once a dayTaking Magnesium Glycinate Taking Wegovy 2.4 MG/0.75ML Solution Auto-injector 0.75 mL Subcutaneous Taking traMADol HCl 50 MG Tablet 1 tablet as needed Orally Once a dayTaking Sodium Sulfacetamide Wash 10 % Liquid 1 application Externally Taking Mirabegron ER 50 MG Tablet Extended Release 24 Hour 1 tablet Orally Once a dayTaking Atorvastatin Calcium 20 MG Tablet 1 tablet Orally Once a dayTaking Synthroid 50 MCG Tablet 1 tablet in the morning on an empty stomach Orally Once a dayTaking Meloxicam 15 MG Tablet 1 tablet Orally Once a dayTaking tiZANidine HCl 4 MG Tablet 1 tablet at bedtime as needed Orally Once a dayTaking Vitamin D3 125 MCG (5000 UT) Capsule 1 capsule Orally Once a dayTaking Multivitamin UnknownCyanocobalamin 1000 MCG Tablet 1 tablet Orally Once a dayWegovy 1 MG/0.5ML Solution Auto-injector 0.5 mL Subcutaneous Magnesium Oxide 400 MG Tablet 1 tablet as needed Orally Once a dayMedication List reviewed and reconciled with the patientUnknown Cyanocobalamin 1000 MCG Tablet 1 tablet Orally Once a dayUnknown Wegovy 1 MG/0.5ML Solution Auto-injector 0.5 mL Subcutaneous Unknown Magnesium Oxide 400 MG Tablet 1 tablet as needed Orally Once a dayMedication List reviewed and reconciled with the patient * Allergies:?Codeine Phosphate : nausea, halucinationsMorphine: nausea, halucinationsyes[Allergies Verified] Objective: * Vitals:?Ht: 5 ft 4.5 in, Wt: 225 lbs, BMI:38.02, Shoe size: 8-8.5 Med, Ht-cm: 163.83 cm, Wt-k.06 kg. * Examination: ???General Examination: ?GENERAL APPEARANCE:?Reveals a pleasant, alert, well nourished, well- developed, well hydrated individual, who demonstrates proper attention to hygiene/body habitus, and is in no acute distress, Pt serves as own historian for office visit today.?ORIENTED:?person, place, and time.?Orthopedic: ?GAIT ABNORMALITY:?antalgic.?DIGITAL DEFORMITIES:?Digital contracture, PIPJ, 2-5 B/L, incompl-reducible with WB, or to push-up test, no over, nor underlapping , Reveals pain/swelling/redness/enlargement of PIPJ/DIPJ , T8.?MPJ PATHOLOGY:? Pain, swelling, and inflammation to plantar 5th, MPJ(s), LEFT, No MPJ pain with ROM, [ - ] Ecchymosis.?FOOTWEAR:? shoe gear properties exacerbate patients foot/toe deformity.?Ingrown Nail: ?INSPECTION:?Reveals nail incurvation, pain on palpation, groove hypertrophy , groove ischemia , Bilateral nail borders , T7.?Neurological: ?SENSORY:?Neurological exam reveals intact sensorium, pain sensation normal, vibration sensation intact, pinprick sensation is normal in the lower extremities, Pt denies, anesthesia, burning, paresthesia, tingling, B/L.?TINEL'S COMPRESSION:? Negative tarsal tunnel, tr pedis, and medial calcaneal nerves, Left.?Neuroma Pain: ?PALPATION:?No interspace pain noted on palpation, LEFT.?Vascular: ?DP PULSES:?3/4, B/L.?PT PULSES:?3/4, B/L.?CAPILLARY FILL TIME:?immediate, all digits, B/L.?SKIN TEMPERTURE GRADIENT OF THE LOWER EXTERMITIES:?normal, warm to cool, proximal to distal, B/L, B/L.?HAIR GROWTH/TEXTURE/ELASTICITY/TURGOR:?normal, B/L.?PIGMENTATION:?normal, B/L.?Dermatologic: ?SKIN FINDINGS:?Skin exam reveals normal color, texture, elasticity, and turgor. There are no masses, nor excrescences. The interspaces are clear, B/L.? Assessment: * Assessment: 1.?Pain in right toe(s) - M7 9.674?2.?Ingrown nail - L60.0 (Primary)?3.?Other hammer toe(s) (acquired), right foot - M20.41?4.?Arthritis of joint of lesser toe, right - M19.071?5.?Subluxation of metatarsophalangeal joint of toe, initial encounter - S93.149A?6.?Pain in left foot - M79.672?7.?Pain in left ankle and joints of left foot - M25.572?8.?Bursitis of intermetatarsal bursa of left foot - M77.52?9.?Metatarsalgia, left foot - M77.42?10.?Hammertoe of right foot - M20.41? Plan: * Treatment: * Procedure Codes:? * Preventive Medicine:? ??Counseling:?Discussion:?-04: Office or other outpatient visit for the evaluation and management of a new patient, which required a medically appropriate history and/or examination and MODERATE level of DECISION MAKING for: 1 OR MORE CHRONIC PROBLEM(S) THATS WORSENING, 2 STABLE CHRONIC PROBLEMS, A NEWLY DIAGNOSED PROBLEM WITH UNCERTAIN PROGNOSIS, AN ACUTE COMPLICATED INJURY WITH MULTIPLE TREATMENT OPTIONS, OR AN ACUTE PROBLEM WITH ACCOMPANYING SYSTEMIC SYMPTOMS, THAT POSE(S) A MODERATE RISK OF MORBIDITY. THIS CONDITION MAY ALSO INCLUDE RX DRUG MANAGEMENT, OR A DECISON FOR MINOR SURGERY. The visit on the day of the encounter encompassed interpreting the data and educating the patient as to the nature of their condition, treatment options available according to their individual PMH, meds, allergies, and overall health/living conditions, as well as any potential risks or complications that may occur from a failure to adhere to, and participate in, the recommended course of therapy. The discussion included a complete verbal, and/or written explanation of the examination results, any x-rays taken, the proposed diagnosis, and outline of the treatment plan. A schedule for future care needs was also explained. The patient verbalized an understanding of the instructions at this time and agreed to be an active participant in their treatment. If the patient should think of any questions or concerns after the visit, I have encouraged the patient to call the office.?Abscess/Paraonychia/Ingrown Nails:?We discussed the possible etiologies (genetic, improper nail care, shoe gear, nail trauma) which may lead to ingrown nails and/or paronychial infections. We discussed and reviewed palliative/nonsurgical/deferring definitive treatment (vs) undergoing the treatment procedures of nail avulsion(s) or PNA, which may prevent recurrence and give more lasting results. The possible risks/complications such as worsened condition/delayed healing/nonhealing/failure/recurrence/infection, the potential benefits/advantages of decreased pain/deformity, as well as alterative treatment options including applying nail softening agents/nail groove packing were discussed. No guarantees were given regarding any outcome for any procedure. The patient was educated in the length of time for the affected nail to regrow once completely healed from a nail avulsion procedure. Once the condition has completely healed, the patient was consulted on proper nail care. Patient questions such as details of each procedure, varying time to heal, activity post procedure, and shoe gear were discussed and the answers were verbally confirmed fully understood, Pt defers NA and PNA today due to schedule. She would like to move forward with a nail avulsion.?Digital Treatment:?HT- I explained to the patient the possible etiologies of Hammertoes, including genetics/foot type/shoegear/activity level/exercise routine and the risks/benefits of all the different treatment options for their pain including: No treatment at all, Rest, Ice, New/supportive/wider/deeper Shoegear, Digital Padding/Strapping/Taping/Bracing/Gel protective sleeves, Foot/Ankle AFO Bracing, Stretching exercises, Deep Tissue Massage, Arch support/shoe inserts with splay metatarsal padding, and Custom orthoses. I insisted that any digital devices be removed daily and not worn overnight for safety. The patient is to carefully examine the toes daily for any skin irritation while using any splinting or padding device. The advantages and disadvantages of each option were discussed and the patients questions re: shoegear, padding, custom vs prefabricated inserts, activity level, and consistency in home treatment regimens for optimal success were answered to their verbally confirmed satisfaction, Recomm, rest, ice, proper shoegear, padding, orthotics, anti-inflammatories or tylenol as tolerated, topical analgesics, cortisone injections.?Metatarsalgea:?I explained to the patient the possible etiologies of their Metatarsalgea Foot pain, including foot type/shoegear/activity level/exercise routine and the risks/benefits of all the different treatment options for pain including: No treatment at all, Rest, Ice, NSAIDs(only if well tolerated after meals), New/supportive Shoegear, Strappings and Tapings, Foot/Ankle AFO Bracing, Stretching exercises, Deep Tissue Massage, Arch support/shoe inserts, Custom orthoses, Topical analgesics including Aspercream/Voltaren gel, Physical Therapy, Cortisone injection therapy, EPAT/ESWT. Advantages and disadvantages of each option were discussed and the patients questions re: shoegear, custom vs prefabricated inserts, activity level, PO vs Topical medications (and their respective potential complications/drug interactions/side effects), and consistency in home treatment regimens for optimal success were answered to their verbally confirmed satisfaction.? * Follow Up:?2 Weeks (Reason: NA) * Images: * Sign off status: Completed true * Provider:?Sejal Ennis DPM Date:?2023 Generated for Thien turner/Bandar/Darnell on:?06/19/2024 01:37 PM EST History and Physical Notes * HPI (History of Present Illness) Category Sub-Category Detail Notes Category Not es Toe pain Nature: tenderness Location: Right foot Duration: several months Course: worse Aggravated by: any pressure, shoes Treatments: rest/alter normal da david activity, change in shoes Foot Pain Location: Bottom, Forefoot, LEFT Duration: several weeks Course: worse Treatments: rest/alter normal da david activity Examination Category Sub-Category Detail Notes Category Not es Ingrown Nail INSPECTION: Reveals nail inc urvation, pain on palpation, groove hypertrophy , groove ischemia , Bilateral nail borders , T7 Neuroma Pain PALPATION: No interspace pain noted on palpation, LEFT Neurological SENSORY: Neurological exa m reveals intact sensorium, pain sensation normal, vibration sensation intact, pinprick sensation is normal in the lower extremities, Pt denies, anesthesia, burning, paresthesia, tingling, B/L TINEL'S COMPRESSION: Negative tarsal bruce chon, tr pedis, and medial calcaneal nerves, Left Dermatologic SKIN FINDINGS: Skin exam reveal s normal color, texture, elasticity, and turgor. There are no masses, nor excrescences. The interspaces are clear, B/L Orthopedic GAIT ABNORMALITY: antalgic FOOTWEAR: shoe gear properties exacerbate patients foot/toe deformity DIGITAL DEFORMITIES: Digital contracture , PIPJ, 2-5 B/L, incompl-reducible with WB, or to push-up test, no over, nor underlapping , Reveals pain/swelling/redness/enlargement of PIPJ/DIPJ , T8 MPJ PATHOLOGY: Pain, swelling, and inflammation to plantar 5th, MPJ(s), LEFT, No MPJ pain with ROM, [ - ] Ecchymosis General Examination GENERAL APPEARANCE: Reveals a pleasant, alert, well nourished, well-developed, well hydrated individual, who demonstrates proper attention to hygiene/body habitus, and is in no acute distress, Pt serves as own historian for office visit today ORIENTED: person, place, and t lexy Vascular DP PULSES(B): 3/4, B/L PT PULSES(B): 3/4, B/L CAPILLARY FILL TIME: immediate, all digi ts, B/L TEMPERTURE GRADIENT(C): normal, warm to cool, proximal to distal, B/L, B/L TROPHIC CONDITION-TEXTURE/ELASTICITY/TURGOR/HAIR GROWTH(B): normal, B/L PIGMENTATION: normal, B/L
--- OUTSIDE RECORDS SUMMARY | 2024-06-19 13:38 | XMS_ITS | Patient Health Record ---
Author Organization [facility] Address [address] [place] [address] Care Team Providers Care Supervisor Dental Laboratory Name Role Phone Brenton Bonilla MD Primary Care Provider Unavail able Black, Sejal Unavailable [phone] Allergies Allergen (clinical drug ingredient) Drug/Non Drug Allergy documented on EMR Reaction Allergy Type Onset Date Status Codeine Phosphate nausea, halucinations Drug Allergy Active morphine Morphine nausea, halucinations Drug Allergy Active Reason For Referral No Information Medications Medication SIG (Take, Route, Frequency, Duration) Notes Start Date End Date Status Atorvastatin Calcium 20 MG 1 tablet Orally Once a day Active Mirabegron ER 50 MG 1 tablet Orally Once a day Active Sodium Sulfacetamide Wash 10 % 1 application Externally Active advil Active Vitamin D3 125 MCG (5000 UT) 1 capsule Orally Once a day Active Aller-Chlor Active tiZANidine HCl 4 MG 1 tablet at bedtime as needed Orally Once a day Active Melatonin Active Meloxicam 15 MG 1 tablet Orally Once a day Active Synthroid 50 MCG 1 tablet in the morn ing on an empty stomach Orally Once a day Active traMADol HCl 50 MG 1 tablet as needed Orally Once a day Active Magnesium Oxide 400 MG 1 tablet as neede d Orally Once a day Not-Taking Wegovy 2.4 MG/0.75ML 0.75 mL Subcutaneous Active Wegovy 1 MG/0.5ML 0.5 mL Subcutaneous Not-Taking Magnesium Glycinate Active Cyanocobalamin 1000 MCG 1 tablet Orally Once a day Not-Taking Vitamin B12 1000 MCG 1 tablet Orally Onc e a day Active Multivitamin Active Social History Tobacco Use: Social History Observation [...] Problem Status W/U Status Risk Notes Problem Plantar wart (53358829) Plantar wart (B07.0) Active confirmed Problem Acquired hammer toe of right foot (5244774811977811 ) Other hammer toe(s) (acquired), right foot (M20.41) Active confirmed Problem Mononeuropathy of lower limb (181331166) Neuritis of left foot (G57.92) Active confirmed Problem 341395589 Hammertoe of right foot (M20.41) Active confirmed Problem Ulcer of toe of right foot (disorder) (1112803978481753 1) Skin ulcer of toe of right foot, limited to breakdown of skin (L97.511) Active confirmed Response to treatment,No napplicable Problem Localized, primary osteoarthritis of the ankle and/or foot (113277941) Arthritis of joint of lesser toe, right (M19.071) Active confirmed Problem Ulcer of toe of left foot (disorder) (9707451328789423 2) Skin ulcer of toe of left foot, limited to breakdown of skin (L97.521) Active confirmed Response to treatment Vital Signs Height 5ft 4in in 04/27/2024 Weight 221 lbs 04/27/2024 BMI 37.93 kg/m2 04/27/2024 Procedures Procedure Date Ordered Date Performed Result Body Sit e 68110-Secu Destruction, 1-14 04/13/2024 N/A 66141-Yrbvhowa Plate 04/13/2024 N/A 54839- Debride <25 sq cm 04/27/2024 N/A Encounters Encounter Location Date Provider Diagnosis [facility] [place] [address] [place] [address] 03/16/2024 Sejal Black Pain in right toe(s) [...] M77.42 and Hammertoe of right foot M20.41 [facility] [address] [address] 04/13/2024 Sejal Black Ingrown nail L60.0 ; Pain in left foot M79.672 ; Neuritis of left foot G57.92 ; Right foot pain M79.671 ; Plantar wart B07.0 and Left foot pain M79.672 [facility] [address] [address] 04/27/2024 Sejal Black Skin ulcer of toe of right foot, limited to breakdown of skin L97.511 Assessments Encounter Date Diagnosis (ICD Code) Assessment Notes Treatment Notes Treatment Clinical Notes Section Notes 03/16/2024 Pain in right toe(s) (ICD-10 - M79.674) 03/16/2024 Ingrown nail (ICD-10 - L60.0) 04/13/2024 Ingrown nail (ICD-10 - L60.0) 04/27/2024 Skin ulcer of toe of right foot, limited to breakdown of skin (ICD-10 - L97.511) Response to treatment,Imani pplicable Patient Educated with: WOUND CARE INSTRUCTIONS. pdf (WOUND CARE INSTRUCTIONS. pdf) 04/13/2024 Pain in left foot (ICD-10 - M79.672) 03/16/2024 Other hammer toe(s) (acquired), right foot (ICD-10 - M20.41) 03/16/2024 Arthritis of joint o f lesser toe, right (ICD-10 - M19.071) 04/13/2024 Neuritis of left bettye t (ICD-10 - G57.92) 04/13/2024 Right foot pain (ICD -10 - M79.671) 03/16/2024 Subluxation of metatarsophalangeal joint of toe, initial encounter (ICD-10 - S93.149A) 04/13/2024 Plantar wart (ICD-10 - B07.0) 04/13/2024 Left foot pain (ICD- 10 - M79.672) 03/16/2024 Pain in left foot (ICD-10 - M79.672) 03/16/2024 Pain in left ankle a nd joints of left foot (ICD-10 - M25.572) 03/16/2024 Bursitis of intermetatarsal bursa of left foot (ICD-10 - M77.52) 03/16/2024 Metatarsalgia, left foot (ICD-10 - M77.42) 03/16/2024 Hammertoe of right f oot (ICD-10 - M20.41) 04/27/2024 Other Plan Of Treatment Pending Test Test Name Order Date 65286-Knhg Destruction, 1-14 04/13/2024 62361-Honcthlu Plate 04/13/2024 60767- Debride <25 sq cm 04/27/2024 Insurance Providers Payer Name Payer Address Payer Phone Subscriber Number Group Number Insured Name Patient Relationship to Insured Coverage Start Date Coverage End Date [employer] [address] [place] [address] [id number] Meredith Casey Self - patient is the insured [employer]) [address] [place] [address] [id number] Meredith Casey Self - patient is the insured Medical (General) History Medical History History ICD Code Hypertension Hypercholesterolemia Hypothyroidism edema Sleep apnea Reflux ( GERD) Umbilical hernia Rhus dermatitis osteoarthritis Urinary incontinence Rosacea Back pain Degenerative Disc disease peptic ulcer disease duodenitis torn meniscus- left knee Arthritis Back,Hip,and Knee pain CAD (Cholesterol) covid-19 Headaches/Migraines Numbness Sciatica sinusitis thyroid Warts Measles Mumps Chicken pox torn meniscus right knee Surgical History Surgery Date(Month/Year) umbilical hernia repair tubal surgery secondary to tubal blockag e lap band 04/01/19 right hip replacement 10/2022 L2-L3 decompression and fusion with intr umentation 01/2015 torn meniscus- left knee
--- OUTSIDE RECORDS SUMMARY | 2024-06-19 13:38 | XMS_ITS ---
Author Organization [facility] Address [address] [facility] [place] [address] Care Team Providers Care Utility Driver Name Role Phone Brenton Bonilla MD Primary Care Provider Unavail able Black, Sejal Unavailable [phone] Allergies Allergen (clinical drug ingredient) Drug/Non Drug Allergy documented on EMR Reaction Allergy Type Onset Date Status Codeine Phosphate nausea, halucinations Drug Allergy Active morphine Morphine nausea, halucinations Drug Allergy Active REASON FOR VISIT Open sore - Toe Medications Medication SIG (Take, Route, Frequency, Duration) Notes Start Date End Date Status Atorvastatin Calcium 20 MG 1 tablet Orally Once a day Active Mirabegron ER 50 MG 1 tablet Orally Once a day Active Sodium Sulfacetamide Wash 10 % 1 application Externally Active traMADol HCl 50 MG 1 tablet as needed Orally Once a day Active Wegovy 2.4 MG/0.75ML 0.75 mL Subcutaneous Active advil Active Aller-Chlor Active Melatonin Active Magnesium Glycinate Active Vitamin B12 1000 MCG 1 tablet Orally Onc e a day Active Vitamin D3 125 MCG (5000 UT) 1 capsule Orally Once a day Active Magnesium Oxide 400 MG 1 tablet as neede d Orally Once a day Not-Taking Wegovy 1 MG/0.5ML 0.5 mL Subcutaneous Not-Taking Cyanocobalamin 1000 MCG 1 tablet Orally Once a day Not-Taking Multivitamin Active tiZANidine HCl 4 MG 1 tablet at bedtime as needed Orally Once a day Active Meloxicam 15 MG 1 tablet Orally Once a day Active Synthroid 50 MCG 1 tablet in the morn ing on an empty stomach Orally Once a day Active Social History Tobacco Use: Social History Observation Description Date Details (start date - stop date) Former Smoker NA - NA Tobacco Use/Smoking Question Answer Notes Are you a: former smoker Additional Findings: Tobacco Non-User Ex-heavy c igarette smoker (20-30/day) Tobacco use other than smoking: Question Answer Notes Are you an other tobacco user? No Problems Problem Type SNOMED Code ICD Code Onset Dates Problem Status W/U Status Risk Notes Problem Ulcer of toe of left foot (disorder) (0181696288 4289389) Skin ulcer of toe of left foot, limited to breakdown of skin (L97.521) Active confirmed Response to treatment Problem Ulcer of toe of right foot (disorder) (6013210440 1975675) Skin ulcer of toe of right foot, limited to breakdown of skin (L97.511) Active confirmed Response to treatment,Non applicable Vital Signs Height 5ft 4in in 04/27/2024 Weight 221 lbs 04/27/2024 BMI 37.93 kg/m2 04/27/2024 Procedures Procedure Date Ordered Date Performed Result Body Sit e 22453- Debride <25 sq cm 04/27/2024 N/A Encounters Encounter Location Date Provider Diagnosis [facility] [place] [address] [place] [address] 04/27/2024 Sejal Black Skin ulcer of toe of right foot, limited to breakdown of skin L97.511 Assessments Encounter Date Diagnosis (ICD Code) Assessment Notes Treatment Notes Treatment Clinical Notes Section Notes 04/27/2024 Skin ulcer of toe of right foot, limited to breakdown of skin (ICD-10 - L97.511) Response to treatment,Nonap plicable Patient Educated with: WOUND CARE INSTRUCTIONS.p df (WOUND CARE INSTRUCTIONS.p df) 04/27/2024 Other Plan Of Treatment Treatment Notes Assessment Notes Skin ulcer of toe of right f oot, limited to breakdown of skin Patient Educated with: WOUND CARE INSTRUCTIONS.pdf (WOUND CARE INSTRUCTIONS.pdf) Pending Test Test Name Order Date 60749- Debride <25 sq cm 04/27/2024 Next Appt Details Follow Up: prn, Reason: Procedure Notes * Category Sub-Category Detail Notes Debride skin< 25 sq cm Open wound Physician of record performed open wound selective debridement of first 25 sq cm or less, of devitilized necrotic/nonviable soft tissue, fibrin, and exudate extending from the epidermis through the dermis, utilizing sharp dissection with sterile 15 blade, and/or tissue nippers. Sterile antibiotic dressing applied, ANESTHESIA- was accomplished TOPICALLY with Lidocaine Hydrochloride Jelly 2 percent. Hemostasis was achieved through direct pressure. Post debridement measurements:5 mm x 2 mm x 2 mm. Character of the wound post debridement is stable (12140) Progress Notes * Meredith CASEY CDOB:[birth year] (73 yo F)Acc No.[id number]:04/27/2024 Progress Notes Patient:?Meredith Casey Provider:?Sejal Ennis DPM :1950???Age:73 Y???Sex:Female D ate:04/27/2024 Address:[address] [place], [place] [id number] Pcp:Brenton Bonilla MD Subjective: * Chief Complaints: * ???Open sore - Toe * HPI: ???Skin problems:?Pt States PCP Visit: ?DATE?03/25/2024 ?Treatments:?, soaks , Topical abx.? * Medical History:? * Surgical History:?umbilical hernia repair tubal surgery secondary to tubal blockage lap band 04/01/19right hip replacement 10/20228247L9-C8 decompression and fusion with intrumentation 01/2015torn meniscus- left knee * Hospitalization/Major Diagno stic Procedure:?Denies Past Hospitalization * Family History:?Mother: mick e, breast cancer, diagnosed with Family history of arthritis, Other malignant neoplasm of unspecified site.?Father: , CHF, dementia,, diagnosed with Unspecified heart disease.?Siblings: diagnosed with Family history of arthritis.? * Social History:?Tobacco Use:?Tobacco Use/Smoking?Are you a:?former smoker ?Additional Findings: Tobacco Non-User?Ex-heavy cigarette smoker (20- 30/day) ?Tobacco use other than smoking?Are you an other tobacco user??No * Medications:?TakingMelatonin Aller-Chlor advil Vitamin B12 1000 [...] 1 capsule Orally Once a dayTaking Multivitamin Not-Taking/PRNCyanocobalamin 1000 MCG Tablet 1 tablet Orally Once a dayWegovy 1 MG/0.5ML Solution Auto-injector 0.5 mL Subcutaneous Magnesium Oxide 400 MG Tablet 1 tablet as needed Orally Once a dayMedication List reviewed and reconciled with the patientNot-Taking/PRN Cyanocobalamin 1000 MCG Tablet 1 tablet Orally Once a dayNot-Taking/PRN Wegovy 1 MG/0.5ML Solution Auto-injector 0.5 mL Subcutaneous Not-Taking/PRN Magnesium Oxide 400 MG Tablet 1 tablet as needed Orally Once a dayMedication List reviewed and reconciled with the patient * Allergies:?Codeine Phosphate : nausea, halucinationsMorphine: nausea, halucinationsyes[Allergies Verified] Objective: * Vitals:?Ht: 5ft 4in, Wt:221, BMI:37.93, Shoe size: 8, Ht-cm: 162.56 cm, Wt-k.24 kg. * Examination: ???Dermatologic: ?ULCER:? LOCATION ,Dorsal,T7, SIZE, 4mm X 3 mm X 1-2mm, BASE, granular, RIM, hyperkeratotic, UNDERMINING, absent, TRACKING, Full thickness breakdown of skin, DRAINAGE, serosanguineous, mild, NECROTIC TISSUE, loosely-adherent, yellow slough, MALODOR, absent, CALOR, absent, ERYTHEMA, absent, PAIN ON PALPATION, present.? Assessment: * Assessment: 1.?Skin ulcer of toe of righ t foot, limited to breakdown of skin - L97.511, Response to treatment,Nonapplicable? Plan: * Treatment: * Procedures:?Debride skin< 25 sq cm:?Open wound?Physician of record performed open wound selective debridement of first 25 sq cm or less, of devitilized necrotic/nonviable soft tissue, fibrin, and exudate extending from the epidermis through the dermis, utilizing sharp dissection with sterile 15 blade, and/or tissue nippers. Sterile antibiotic dressing applied, ANESTHESIA- was accomplished TOPICALLY with Lidocaine Hydrochloride Jelly 2 percent. Hemostasis was achieved through direct pressure. Post debridement measurements:5 mm x 2 mm x 2 mm. Character of the wound post debridement is stable (62812).? * Procedure Codes:?62573 ACTIV E WOUND CARE/20 CM OR < * Preventive Medicine:? ??Counseling:?Ulcer:?A detailed plan of care was reviewed with the patient. We emphasized the fact that the patient takes on an active participating role in the treatment process and emphasized to them that they are an included, valued, and important member of the wound healing team in order to reach an expedient successful outcome. The patient agreed to follow their medically recommended diet while increasing their protein intake if safely able to do so, maintain proper bodily hydaration, abide by weight-bearing restrictions at all times, quit all current smoking habits if any, and diligently follow any/all dressing change instructions. It was clearly made known to the patient that if they fail to do their part, they will likely extend their course of treatment as well as possibly increase their risk of adverse events including amputation. The patient was instructed on importance of proper wound care consisting of pressure reduction, and proper maintainance of a moist wound environment. The patient is to cleanse the wound with warm soapy water/peroxide/saline, or betadine BID based on product availability. The patient is to apply ( Neosporin, Polysporin, or Triple, ) Antibiotic to the wound and cover with a DSD as directed. The patient was instructed to change dressings according to orders, or PRN saturation, leaks. The patient was instructed to monitor and report any signs or symptoms of infection or any untoward reactions. Precautions Taken: Offloading/Pressure reduction via rest/ limited activity to essential to daily life only, cane/ crutches/ walker/ knee scooter/ wheel chair, shoe modification, accommodative padding, sharp debridement, and take/apply medication as directed. THE GOALS of wound debridement to remove devitilized tissue, decrease risk for infection, promote wound healing and prevent further complication were discussed/reviewed. Debridement frequency as needed.? * Follow Up:?prn * Images: * Sign off status: Completed true * Provider:?Sejal Ennis DPM Date:?2023 Generated for Thien turner/Bandar/Rashmiitting on:?06/19/2024 01:37 PM EST History and Physical Notes * HPI (History of Present Illness) Category Sub-Category Detail Notes Category Not es Skin problems Treatments: , soaks , Topical abx Pt States PCP Visit: DATE: 03/25/2024 Examination Category Sub-Category Detail Notes Category Not es Dermatologic ULCER: LOCATION ,Dorsal ,T7, SIZE, 4mm X 3 mm X 1-2mm, BASE, granular, RIM, hyperkeratotic, UNDERMINING, absent, TRACKING, Full thickness breakdown of skin, DRAINAGE, serosanguineous, mild, NECROTIC TISSUE, loosely-adherent, yellow slough, MALODOR, absent, CALOR, absent, ERYTHEMA, absent, PAIN ON PALPATION, present
--- OUTSIDE RECORDS SUMMARY | 2024-06-19 13:38 | XMS_ITS | Patient Health Record ---
Author Organization [facility] Address [address] [place] [address] Care Team Providers Care Cement Finishing Supervisor Name Role Phone Brenton Bonilla DO Primary Care Provider Unavail able Wallace Diana Jr Unavailable [phone] ALLERGIES Allergen (clinical drug ingredient) Drug/Non Drug Allergy documented on EMR Reaction Allergy Type Onset Date Status morphine Morphine Sulfate Unknown Drug Allergy Active codeine Codeine Sulfate Unknown Drug Allergy A ctive REASON FOR REFERRAL No Information MEDICATIONS Medication SIG (Take, Route, Frequency, Duration) Notes Start Date End Date Status Melatonin 3 MG 1 tablet at bedtime as needed Orally Once a day for 30 day(s) Active Advil 200 MG 1 capsule with food or milk as needed Orally Three times a day/prn Active Sleep Aid 25 MG 1 tablet at bedtime as needed Orally Once a day for 30 day(s) Active Wegovy 2.4 MG/0.75ML 0.75 mL Subcutaneou s for 30 day(s) Active Meloxicam 15 MG 1 tablet Orally Once a day for 30 day(s) Active Vitamin B 12 100 MCG as directed Orally Active Vitamin D 1000 UNIT 1 tablet Orally Once a day for 30 day(s) Active tiZANidine HCl 4 MG 1 tablet [...] 10 % 1 application Externally Act karina Synthroid 50 MCG 1 tablet on an empty stomach in the morning Orally Once a day Active Aller-Ease Active Multi Vitamin/Minerals - as directed Ora lly once a day Active IMMUNIZATIONS Vaccine Route Administration Date Status Comme nts Influenza Unknown 05/29/2018 Administered Influenza Unknown 05/21/2023 Administered SOCIAL HISTORY Tobacco Use: Social History Observation [...] W/U Status Risk SNOMED Code Notes Problem Colon cancer screening (Z12.11) Active confirmed 780006133 Problem 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) use of non-steroidal anti-inflammatorie s (NSAID) (Z79.1) Active confirmed 481534362 Problem Long-term current use of high risk medication other than anticoagulant (Z79.899) Active confirmed 609289642 VITAL SIGNS Temperature 97.8 degrees Fahrenheit 05/18/2024 Blood pressure diastolic 00 mm Hg 05/18/2024 Height 66 in 05/18/2024 Blood pressure systolic 000 mm Hg 05/18/2024 Weight 223 lb 1 oz lbs 05/18/2024 BMI 36.00 kg/m2 05/18/2024 Encounters Encounter Location Date Provider Diagnosis [facility] [place] [address] [place] [phone] 06/09/2024 Wallace Diana Jr [facility] [address] [place] [address] 05/18/2024 Wallace Diana Jr Colon cancer screening Z12.11 and Long-term current use of high risk medication other than anticoagulant Z79.899 [facility] [address] [place] [phone] 06/08/2024 Wallace Diana Jr ASSESSMENTS Encounter Date Diagnosis Assessment Notes Treatment Notes Treatment Clinical Notes 05/18/2024 Colon cancer screening (ICD-10 - Z12.11) 05/18/2024 Long-term current use of high risk medication other than anticoagulant (ICD-10 - Z79.899) 05/18/2024 Other Colonoscopy material was printed PLAN OF TREATMENT Future Test Test Name Order Date COLONOSCOPY 04/22/2019 COLONOSCOPY 05/18/2024 Insurance Providers Payer Name Payer Address Payer Phone Subscriber Number Group Number Insured Name Patient Relationship to Insured Coverage Start Date Coverage End Date MEDICARE OF [place] [address] [place] [address] [phone] [id number] ALYSA VELARDE Self - patient is the insured [employer] ([employer]) [address] [place] [address] [id number] ALYSA VELARDE Self - patient is the insured MEDICAL (GENERAL) HISTORY Medical History History ICD Code KANIKA/CPAP Hypothyroidism Hyperlipidemia Postnasal drip Rosacea Elevated BMI Colonoscopy 06/25, tubular adenoma, five -year followup Surgical History Surgery Date(Month/Year) lap band/removed 7406-4097 back surgery, L 2-3 decompression 2014 umbilical hernia repair bartholin cyst removed torn meniscus left knee right hip replacement 10/26/2022
--- OUTSIDE RECORDS SUMMARY | 2024-06-19 13:38 | XMS_ITS ---
Author Organization Brenton Bonilla DO, FACP Address [address] [place] [phone] Care Team Providers Care Digital Media Planner Name Role Phone ChadBrenton mcguire Primary Care Provider [phone] REASON FOR VISIT Refill MEDICATIONS Medication SIG (Take, Route, Fr equency, Duration) Notes Start Date End Date Status Meloxicam 15 MG 1 tablet Orally Once a day for 90 days Active Encounters Encounter Location Date Provider Diagnosis Brenton Bonilla DO FACP [address] [place] [phone] 05/15/2024 Brenton Bonilla PLAN OF TREATMENT Medication Medication Name Sig Start Date Stop Date Notes Meloxicam 15 MG 1 tablet Orally Once a day for 90 days Next Appt Details Provider Name:Brenton clark, 11/11/2024 11:00:00 AM, [address] [place] [address], [phone],
--- OUTSIDE RECORDS SUMMARY | 2024-06-19 13:38 | XMS_ITS ---
Author Organization [facility] Address [address] [facility] [place] [address] Care Team Providers Care Filling Machine Tender Name Role Phone Brenton Bonilla MD Primary Care Provider Unavail able Black, Sejal Unavailable [phone] Allergies Allergen (clinical drug ingredient) Drug/Non Drug Allergy documented on EMR Reaction Allergy Type Onset Date Status Codeine Phosphate nausea, halucinations Drug Allergy Active morphine Morphine nausea, halucinations Drug Allergy Active REASON FOR VISIT Ingrown Nail, Foot pain, Wart(s) Medications Medication SIG (Take, Route, Frequency, Duration) Notes Start Date End Date Status Vitamin D3 125 MCG (5000 UT) 1 capsule Orally Once a day Active Multivitamin Active Cyanocobalamin 1000 MCG 1 tablet Orally Once a day Not-Taking Wegovy 1 MG/0.5ML 0.5 mL Subcutaneous Not-Taking Magnesium Oxide 400 MG 1 tablet as neede d Orally Once a day Not-Taking Meloxicam 15 MG 1 tablet Orally Once a day Active tiZANidine HCl 4 MG 1 tablet at bedtime as needed Orally Once a day Active Atorvastatin Calcium 20 MG 1 tablet Orally Once a day Active Synthroid 50 MCG 1 tablet in the morn ing on an empty stomach Orally Once a day Active Mirabegron ER 50 MG 1 tablet Orally Once a day Active Vitamin B12 1000 MCG 1 tablet Orally Onc e a day Active Magnesium Glycinate Active Wegovy 2.4 MG/0.75ML 0.75 mL Subcutaneous Active traMADol HCl 50 MG 1 tablet as needed Orally Once a day Active Sodium Sulfacetamide Wash 10 % 1 application Externally Active advil Active Aller-Chlor Active Melatonin Active Social History Tobacco Use: Social History [...] Problem Status W/U Status Risk Notes Problem Mononeuropathy of lower limb (387753626) Neuritis of left foot (G57.92) Active confirmed Problem Plantar wart (53690404) Plantar wart (B07.0) Active confirmed Vital Signs Height 5ft 4.5in in 04/13/2024 Weight 221 lbs 04/13/2024 BMI 37.34 kg/m2 04/13/2024 Procedures Procedure Date Ordered Date Performed Result Body Sit e 87014-Gbeo Destruction, 1-14 04/13/2024 N/A 57560-Bqkadxjt Plate 04/13/2024 N/A Encounters Encounter Location Date Provider Diagnosis [facility] [address] [address] 04/13/2024 Sejal Black Ingrown nail L60.0 ; Pain in left foot M79.672 ; Neuritis of left foot G57.92 ; Right foot pain M79.671 ; Plantar wart B07.0 and Left foot pain M79.672 Assessments Encounter Date Diagnosis (ICD Code) Assessment Notes Treatment Notes Treatment Clinical Notes Section Notes 04/13/2024 Ingrown nail (ICD-10 - L60.0) 04/13/2024 Pain in left foot (ICD-10 - M79.672) 04/13/2024 Neuritis of left foot (ICD-10 - G57.92) 04/13/2024 Right foot pain (ICD-10 - M79.671) 04/13/2024 Plantar wart (ICD-10 - B07.0) 04/13/2024 Left foot pain (ICD-10 - M79.672) Plan Of Treatment Pending Test Test Name Order Date 56118-Yykk Destruction, 1-14 04/13/2024 84228-Eysugjwz Plate 04/13/2024 Next Appt Details Follow Up: 2 Weeks, Reason: Procedure Notes * Category Sub-Category Detail Notes Wart Treatment Procedure Verrucae were de brided to pin-point bleeding margins with sterile 15 surgical blade, silver nitrate chemocautery applied, recomm. immune-boosting meds such as zinc, recomm. follow up with topical chemosurgical agents, Pt defers any other forms of tx - 98149 Nail Avulsion Procedure A fine sterile e levator was placed between the eponychium, nail fold, and nail plate to separate the structures. A sterile nail splitter, and/or sterile 316 blade, was then used to longitudinally section the nail along its entire length through the eponychium to the area under the nail fold. The offending portion of nail was from the nail bed with a rolling action and then removed with a hemostat. No underlying bone was identified. There was minimal bleeding as hemostasis was achieved through the temporary use of either a digital tourniquet or the aforementioned local with epinephrine. A bacitracin sterile dressing was applied. Local wound aftercare instructions were discussed and dispensed. The patient was informed of both conservative and future surgical procedures to prevent recurrence. Tylenol or Motrin was recommended for pain or discomfort (57602) , Pt DEFERS matricectomy Anesthesia 3cc of 1 percent Lid ocaine Plain local anesthesic utilizing aseptic technique Location Lateral nail border , T7 Progress Notes * Meredith CASEY CDOB:[birth year] (73 yo F)Acc No.[id number]:04/13/2024 Progress Note Patient:Meredith Sandoval Provider:?Sejal Ennis DPM :1950???Age:73 Y???Sex:Female D ate:04/13/2024 Address:[address] [place], [place] [id number] Pcp:Brenton Bonilla MD Subjective: * Chief Complaints: * ???Ingrown NailFoot painWart (s) * HPI: ???Foot Pain:?Nature:?, numbness.?Location:?4,5 digits left.?Duration:?, several weeks.?Onset:?unknown.?Course:?worse.?Aggravated:?any pressure.?Treatments:?rest/alter normal daily activity.?Skin problems:?Pt States PCP Visit: ?DATE?03/25/2024 * ROS:?General/Constitutional:?Nausea?denies.?Vomiting?denies.?Hunger Thirst?denies.?Loss appetite?denies.?Chills?denies.?Fatigue?admits.?Fever?denies.?Night Sweats?denies.?Unexplained weight loss?denies.?Unexplained weight gain?denies.?HEENTM:?Dentures?denies.?Dizziness?denies.?Glasses/contacts?admits.?Retinopathy?de nies.?Blurred/double vision?denies.?TMJ?denies.?Discharge/drainage?denies.?Implants?denies.?Sore throat?denies.?Dental implants?admits.?Hard of hearing ?denies.?Difficulty chewing/swallowing/speaking?denies.?Nose bleeds?denies.?Sore mouth?denies.?Respiratory:?On Oxygen?denies.?Pneumonia/pleurisy?denies.?Bronchitis?denies.?Emphysema?denies.?C oughing?denies.?Cough blood?denies.?Shortness of breath?denies.?Wheezing?admits.?Cardiovascular:?Pacemaker?denies.?MVP?denies.?WPW?denies.?CHF?denies.?Heart attack?denies.?Septal defect?denies.?Rapid beat?denies.?Chest pain ?denies.?Atrial Fib.?denies.?Murmur/Palpitations?denies.?Gastrointestinal:?Hemorrhoids?denies.?Stomach/Abdominal pain?denies.?Dark blood stool?denies.?Irritable bowel ?denies.?Constipation?denies.?Diarrhea?denies.?Hematology:?Swelling?denies.?Clots?denies.?Varicose Veins?admits.?Bruising?denies.?Bleeding problem?denies.?Genitourinary:?Blood urine?denies.?Frequent/Painfu/urination/bladder control?denies.?Kidney stones?admits.?Infection (UTI)?denies.?Nephropathy?denies.?sex trans dis (STD)?denies.?Prostate?denies.?Musculoskeletal:?Hammertoes?denies.?Bunions?denies.?Back Pain?admits.?Muscle Cramps/ Resting?admits.?Muscle cramps / walking?admits.?Generalized aches and pains?admits.?Weakness?denies.?Integ.:?Gonzalez?denies.?Scars?denies.?Corns/calluses?admits.?Ingrown nails?admits.?Painful nails?admits.?Open Sores?denies.?Rashes?denies.?Neurologic:?Difficulty sleeping?denies.?Brain disorder?denies.?Numbness?admits.?Balance trouble?denies.?Confusion?denies.?Fainting/blackouts?denies.?Tingling?denies.?Tr emors?denies.? * Medical History:? * Surgical History:?umbilical hernia repair tubal surgery secondary to tubal blockage lap band 04/01/19right hip replacement 10/20221501A2-Q3 decompression and fusion with intrumentation 01/2015torn meniscus- left knee * Hospitalization/Major Diagno stic Procedure:?Denies Past Hospitalization * Family History:?Mother: mick flores, breast cancer, diagnosed with Family history of [...] yes, golf. ?Marital status: single. ?Occupation: Retired [employer]. * Medications:?TakingMelatonin Aller-Chlor advil Vitamin B12 1000 [...] nausea, halucinationsyes[Allergies Verified] Objective: * Vitals:?Ht: 5ft 4.5in, Wt:22 1, BMI:37.34, Shoe size: 8, Ht-cm: 163.83 cm, Wt-k.24 kg. * Examination: ???General Examination: ?GENERAL APPEARANCE:?Reveals a pleasant, alert, well nourished, well- developed, well hydrated individual, who demonstrates proper attention to hygiene/body habitus, and is in no acute distress, Pt serves as own historian for office visit today.?ORIENTED:?person, place, and time.?Ingrown Nail: ?INSPECTION:?Reveals nail incurvation, pain on palpation, groove hypertrophy , groove ischemia , There is evidence of surrounding periungual tissue erythema , Lateral nail border , T7.?Neurological: ?SENSORY:?Neurological exam reveals intact sensorium, pain sensation normal, vibration sensation intact, pinprick sensation is normal in the lower extremities, Pt , Pt relates , numbness 4,5 digits left.?TINEL'S COMPRESSION:? Positive, Medial dorsal cutaneous nerve distribution, Intermediate dorsal cutaneous nerve distribution, Left.?Neuroma Pain: ?PALPATION:?No interspace pain noted on palpation.?Dermatologic: ?VERRUCA:?Reveals a Single , multi-loculated , mosaic-patterned, round, raised, flat-topped, petechial bleeding papule(s), with cauliflower appearance and interruption of skin lines, pain to lateral compression, and size estimated at 2mm diameter right midfoot plantar.?Orthopedic: ?DIGITAL DEFORMITIES:?Digital contracture, PIPJ, 2-5 B/L, incompl-reducible with WB, or to push-up test, no over, nor underlapping.? Assessment: * Assessment: 1.?Ingrown nail - L60.0?2.?P ain in left foot - M79.672?3.?Neuritis of left foot - G57.92, Acute problem, Uncomplicated (3)?4.?Right foot pain - M79.671?5.?Left foot pain - M79.672?6.?Plantar wart - B07.0 (Primary)? Plan: * Treatment: 2.?Ingrown nail?Procedure: 13420-Zrkbotav Plate * Procedures:?Nail Avulsion:?Location?Lateral nail border , T7.?Anesthesia?3cc of 1 percent Lidocaine Plain local anesthesic utilizing aseptic technique.?Procedure?A fine sterile elevator was placed between the eponychium, nail fold, and nail plate to separate the structures. A sterile nail splitter, and/or sterile 316 blade, was then used to longitudinally section the nail along its entire length through the eponychium to the area under the nail fold. The offending portion of nail was from the nail bed with a rolling action and then removed with a hemostat. No underlying bone was identified. There was minimal bleeding as hemostasis was achieved through the temporary use of either a digital tourniquet or the aforementioned local with epinephrine. A bacitracin sterile dressing was applied. Local wound aftercare instructions were discussed and dispensed. The patient was informed of both conservative and future surgical procedures to prevent recurrence. Tylenol or Motrin was recommended for pain or discomfort (69391) , Pt DEFERS matricectomy.?Wart Treatment:?Procedure?Verrucae were debrided to pin-point bleeding margins with sterile 15 surgical blade, silver nitrate chemocautery applied, recomm. immune-boosting meds such as zinc, recomm. follow up with topical chemosurgical agents, Pt defers any other forms of tx - 92052.? * Procedure Codes:?57792 Avuls ion Plate, Modifiers: T7 46687 Wart Destruction, 1- 14, Modifiers: XS * Preventive Medicine:? ??Counseling:?Discussion:?-13: Office or other outpatient visit for the evaluation and management of an established patient, which required a medically appropriate history and/or examination and LOW level of DECISION MAKING for: 1 STABLE ACUTE UNCOMPLICATED PROBLEM, 2 OR MORE MINOR PROBLEMS, OR 1 STABLE CHRONIC PROBLEM, THAT POSE(S) A LOW RISK FOR MORBIDITY/MORTALITY. The visit on the day of the [...] have encouraged the patient to call the office.?Neuritis/Neuropathy:?The patient was counseled on the diagnosis, possible etiologies (including mechanical stress, injury, entrapment, chemotherapy, diabetes, vertebral disk herniation if hx), treatment options, and importance for adherence to recommendations in order to address the patients Neuritis/Neuropathy. The advantages and disadvantages re: Accomidative mechanical support/offloading, Topical vs PO analgesics including aspercream/Voltaren gel/Lidoderm patches/Neurontin/Lyrica along with their potential side effects were discussed with the patient to their satisfaction. Also discussed the use of therapeutic injectable cortisone if needed. Surgical treatment, if considered an option, was discussed as well. If surgery is warranted, we discussed the potential successful outcomes as well as the possible complications such as failure, painful scar, permanent tingling/numbness/neuralgea/or intractable pain. Patient questions re: medication use, dosage, and possible side effects and drug interactions were reviewed and the answers to each understood. If the condition worsens, the patient was instructed to contact the office for an appointment. The patient verbally confirmed a full understanding of the above, Discussed that neuropathy could be related to back arthritis/injury, recommend follow up with PCP.? * Follow Up:?2 Weeks * Images: * Sign off status: Completed true * Provider:?Sejal Ennis DPM Date:?2023 Generated for Thien turner/Bandar/Darnell on:?06/19/2024 01:37 PM EST History and Physical Notes * HPI (History of Present Illness) Category Sub-Category Detail Notes Category Not es Skin problems Pt States PCP Visit: DATE: 03/25/2024 Foot Pain Nature: , numbness Location: 4,5 digits left Duration: , several weeks Onset: unknown Course: worse Aggravated: any pressure Treatments: rest/alter normal da david activity Examination Category Sub-Category Detail Notes Category Not es Ingrown Nail INSPECTION: Reveals nail inc urvation, pain on palpation, groove hypertrophy , groove ischemia , There is evidence of surrounding periungual tissue erythema , Lateral nail border , T7 Neuroma Pain PALPATION: No interspace pain noted on palpation Neurological SENSORY: Neurological exa m reveals intact sensorium, pain sensation normal, vibration sensation intact, pinprick sensation is normal in the lower extremities, Pt , Pt relates , numbness 4,5 digits left TINEL'S COMPRESSION: Positive, Medial do rsal cutaneous nerve distribution, Intermediate dorsal cutaneous nerve distribution, Left Dermatologic VERRUCA: Reveals a Single , multi-loculated , mosaic-patterned, round, raised, flat-topped, petechial bleeding papule(s), with cauliflower appearance and interruption of skin lines, pain to lateral compression, and size estimated at 2mm diameter right midfoot plantar Orthopedic DIGITAL DEFORMITIES: Digital con tracture, PIPJ, 2-5 B/L, incompl-reducible with WB, or to push-up test, no over, nor underlapping General Examination GENERAL APPEARANCE: Reveals a pleasant, alert, well nourished, well-developed, well hydrated individual, who demonstrates proper attention to hygiene/body habitus, and is in no acute distress, Pt serves as own historian for office visit today ORIENTED: person, place, and t lexy
--- OUTSIDE RECORDS SUMMARY | 2024-06-19 13:38 | XMS_ITS ---
Author Organization Brenton Bonilla DO, FACP Address [address], [place] [id number] Care Team Providers Care Helicopter Crew Chief Name Role Phone ChadBrenton mcguire Primary Care Provider REASON FOR VISIT Message MEDICATIONS Medication SIG (Take, Route, Frequency, Duration) Notes Start Date End Date Status Amoxicillin-Pot Clavulanate 875-125 MG 1 tablet with food Orally Twice a day for 7 days 05/19/2024 Active Encounters Encounter Location Date Provider Diagnosis [facility] [address] [place], [place] [id number] 05/19/2024 Brenton Bonilla PLAN OF TREATMENT Medication Medication Name Sig Start Date Stop Date Notes Amoxicillin-Pot Clavulanate 875-125 MG 1 tablet with food Orally Twice a day for 7 days 05/19/2024 Next Appt Details Provider Name:Brenton clark, 11/11/2024 11:00:00 AM, [address] [place], [place], [phone],
--- OUTSIDE RECORDS SUMMARY | 2024-06-19 13:38 | XMS_ITS ---
Author Organization Brenton Bonilla DO, FACP Address [address] [place], [place] [id number] Care Team Providers Care Automotive Leasing Sales Representative Name Role Phone Brenton Bonilla Primary Care Provider [phone] ALLERGIES Allergen (clinical drug ingredient) Drug/Non Drug Allergy documented on EMR Reaction Allergy Type Onset Date Status Codeine Phosphate nausea Drug Allergy Active REASON FOR VISIT 3 month f/u, Follow up obesity MEDICATIONS Medication SIG (Take, Route, Frequency, Duration) Notes Start Date End Date Status Mirabegron ER 50 MG 1 tablet Orally Once a day Active Meloxicam 15 MG 1 tablet Orally Once a day Active Synthroid 50 MCG 1 tablet in the morn ing on an empty stomach Orally Once a day Active Wegovy 2.4 MG/0.75ML 2.4 MG/0.75 mL Subcutaneous Once a week Active Magnesium Oxide 400 MG 1 tablet with bettye d Orally Once a day Active tiZANidine HCl 4 MG 1 tablet as needed O rally Once a day Active Atorvastatin Calcium 20 MG 1 tablet Oral ly Once a day Active Amoxicillin 500 MG 4 capsules Orally On ce a day 03/08/2023 Active Cyanocobalamin 1000 MCG 1 tablet Orally Once a day Active Multivitamins 1 tablet Orally Once a day Active Vitamin D-3 125 MCG (5000 UT) 1 tablet Orally Once a day Active SOCIAL HISTORY Tobacco Use: Social History Observation Description Date Details (start date - stop date) Former Smoker NA - NA Sex Assigned At : Social History Observation Description Sex Assigned At Unknown Tobacco Use/Smoking Question Answer Notes Patient is a former smoker How long has it been since y ou last smoked? > 10 years Additional Findings: Tobacco Non-User Fo rmer smoker, currently using no form of tobacco Alcohol Screen Question Answer Notes Did you have a drink contain ing alcohol in the past year? Yes How often did you have a dri nk containing alcohol in the past year? 2 to 4 times a month (2 points) How many drinks did you have on a typical day when you were drinking in the past year? 1 or 2 drinks (0 point) How often did you have 6 or more drinks on one occasion in the past year? Never (0 point) Points 2 Interpretation Negative VITAL SIGNS BMI 38.45 kg/m2 05/11/2024 Heart Rate 58 /min 05/11/2024 Height 64.00 in 05/11/2024 Respiratory Rate 15 /min 05/11/2024 Temperature 97.4 degrees Fahrenheit 05/11/20 24 Weight 224 lbs 05/11/2024 Encounters Encounter Location Date Provider Diagnosis Brenton Bonilla DO, [address] [phone] 05/11/2024 Brenton Bonilla Morbid (severe) obes ity due to excess calories E66.01 ; Hypercholesterolemia E78.00 ; Acquired hypothyroidism E03.9 ; Obstructive sleep apnea G47.33 and Lumbago with sciatica, right side M54.41 ASSESSMENTS Encounter Date Diagnosis Assessment Notes Treatment Notes Treatment Clinical Notes 05/11/2024 Morbid (severe) obes ity due to excess calories (ICD-10 - E66.01) 05/11/2024 Hypercholesterolemia (ICD-10 - E78.00) 05/11/2024 Acquired hypothyroid ism (ICD-10 - E03.9) 05/11/2024 Obstructive sleep ap lawanda (ICD-10 - G47.33) Nightly CPAP 05/11/2024 Lumbago with sciatic a, right side (ICD-10 - M54.41) PLAN OF TREATMENT Medication Medication Name Sig Start Date Stop Date Notes Mirabegron ER 50 MG 1 tablet Orally Once a day Meloxicam 15 MG 1 tablet Orally Once a day Synthroid 50 MCG 1 tablet in the morn ing on an empty stomach Orally Once a day Wegovy 2.4 MG/0.75ML 2.4 MG/0.75 mL Subc utaneous Once a week Magnesium Oxide 400 MG 1 tablet with bettye d Orally Once a day tiZANidine HCl 4 MG 1 tablet as needed O rally Once a day Atorvastatin Calcium 20 MG 1 tablet Orally Once a day Amoxicillin 500 MG 4 capsules Orally Once a day 03/08/2023 Cyanocobalamin 1000 MCG 1 tablet Orally Once a day Multivitamins 1 tablet Orally Once a day Vitamin D-3 125 MCG (5000 UT) 1 tablet Orally Once a day Treatment Notes Assessment Notes Obstructive sleep apnea Nightly CPAP Next Appt Details Follow Up: 6 Months, Reason: follow up visit Provider Name:Brenton clark, 11/11/2024 11:00:00 AM, [address] [place] [address], [phone], Progress Notes * Examination Category Sub-Category Detail Notes General Examination GENERAL APPEARANCE: in no ac ynes distress, well developed, well nourished LUNGS: breathing comfortabl y at rest PSYCH: alert, oriented, cog nitive function intact History and Physical Notes * HPI (History of Present Illness) Category Sub-Category Detail Notes New symptom(s) Telehealth Location of provider:: Pro lawtonr's home address Location of patient:: Address listed in demographics for today's visit Patient identification confirmed using:: Name, Telehealth method:: Video co nference where patient is visible to the provider of care Consent:: Patient verbally c onsented to treatment, Patient verbally consented to billing insurance company, Patient informed of any privacy concerns related to method of visit Total time spent with patient (mins): 31 Disclaimer: This Telehealth visit is being conducted per CDC recommendations due to the COVID-19 outbreak. Depression Screening PHQ-9 Little inte rest or pleasure in doing things: Not at all Feeling down, depressed, or hopeless: No t at all Trouble falling or staying asleep, or sl eeping too much: Not at all Feeling tired or having little energy: N ot at all Poor appetite or overeating: Not at all Feeling bad about yourself o r that you are a failure, or have let yourself or your family down: Not at all Trouble concentrating on thi ngs, such as reading the newspaper or watching television: Not at all Moving or speaking so slowly that other people could have noticed; or the opposite, being so fidgety or restless that you have been moving around a lot more than usual: Not at all Thoughts that you would be b ana rosa off or of hurting yourself in some way: Not at all Total Score: 0 Interpretation and Intervention Depression Shilpa mahoney Findings: Negative Follow-Up for Depression: : Review of PH Q-9 found negative result; no follow-up needed Fall Risk Fall History Have you had two or more fal ls in the past year?: No Have you had any falls with injury in th e past year?: No Fall Risk Assessment:: One fall without injury in the past year Communication Needs PCMH Communication Needs - PCM Shiraz liu Impairment?: No Vision Impairment?: Yes wears glasses Cognitive Impairment?: No SDOH Questions SDOH Questions In the past year have you been worried about losing your housing?: No In the past year have you or any family members you live with been unable to get any of the following when it was really needed? Check all that apply:: None
--- OUTSIDE RECORDS SUMMARY | 2024-06-19 13:39 | XMS_ITS | Patient Health Record ---
Author Organization Brenton Bonilla DO, FACP Address [address], [place] [address] Care Team Providers Care Scientific Research Manager Name Role Phone Brenton Bonilla Primary Care Provider ALLERGIES Allergen (clinical drug ingredient) Drug/Non Drug Allergy documented on EMR Reaction Allergy Type Onset Date Status Codeine Phosphate nausea Drug Allergy Active RESULTS Component Value Reference Range Notes MM tomosynthesis screening B I Reviewed date:04/03/2024 11:04:32 AM Interpretation:Negative Performing Lab: Notes/Report: [address] [place] [address] Mammography Report Signed Patient: Meredith Casey MR#: [id number] 256 : 1950 Acct:[id number] Age/Sex: 73 / F ADM Date: 03/21/24 Loc: HO.MAMMO Attending Dr: Brenton Bonilla DO Ordering Physician: Brenton Bonilla DO Results: 1Negat karina Date of Service: 03/21/24 Follow Up: 1 Year From Orig ina Mammogram Procedure(s): MM tomosynthesis screening BI Accession Number(s): [id number] cc: Brenton Bonilla DO EXAMINATION: MM SCREENING DIGITAL BREAST TOMOSYNTHESIS, BILATERAL CLINICAL INFORMATION: Screening. Asymptomatic. COMPARISON: Mammography: Comparison is made with available priors TECHNIQUE: Digital breast mammography with tomosynthesis is performed in both the craniocaudal and mediolateral oblique views along with computer-aided detection (CAD). FINDINGS: There are scattered areas of fibroglandular density (ACR BI-RADS breast composition Category b). There are no significant masses, abnormal calcifications, or other abnormalities. MM/MM tomosynthesis screening BI IMPRESSION: No mammographic evidence of malignancy. ASSESSMENT: BI-RADS BI-RADS 1 - Negative RECOMMENDATION: Routine annual mammography screening. 1 year F/U This examination should not preclude the clinical evaluation of a suspicious palpable abnormality. This patient's information was entered into a reminder system with a target due date for their next mammogram. Electronically signed by: Danette Gilbert DO 04/03/2024 08:55 AM EDT RP Dictated By: Danette Gilbert DO Signed By: <Electronically signed by Danette Gilbert DO in OV> 04/03/24 0855 DD/ 1000 TD/TT: 03/21/24 1015 Cnc Operator Programmer: REASON FOR REFERRAL Reason F/U Colonoscopy Diagnosis 1 Tubular adenoma of c olon (D12.6) Referral Organization Brenton Greer FACP Referring Provider First Name Brenton Referring Provider Last Name Chad Referring Provider Speciality Internal edicine Referred Provider Wallace Diana Referred Provider Specialty Gastroentero logy General Notes Rosa Elena Shelton 024 01:21:57 PM EDT > referral faxed; patient notified., Rosa Elena Shelton 10/04/2023 02:03:25 PM EDT > referral re-faxed. Referral Priority Routine Referral Appointment Date 05/18/2024 Reason sleep apnea Diagnosis 1 Sleep apnea, unspeci fied (G47.30) Referral Organization Brenton Greer FACP Referring Provider First Name Brenton Referring Provider Haseeb Name Chad Referring Provider Speciality Internal edicine Referred Provider Bev Niño Referred Provider Specialty Pulmonary Di seases General Notes Radha Hernandez 4 02:00:29 PM EDT > Referral faxed prior to scheduling. Referral Priority Routine Referral Appointment Date 01/02/2024 Reason Ingrown toenail Diagnosis 1 Ingrown toenail (L60 .0) Referral Organization Brenton Greer FACP Referring Provider First Name Brenton Referring Provider Haseeb Bonilla Referring Provider Speciality Internal edicine Referred Provider Sejal Ennis Referred Provider Specialty Podiatry General Notes PageRadha 4 03:23:03 PM EDT > Referral faxed prior to scheduling Referral Priority Routine Referral Appointment Date 03/16/2024 Reason Follow up colonoscop y Diagnosis 1 Tubular adenoma of c olon (D12.6) Referral Organization Brenton Greer, FACP Referring Provider First Name Brenton Referring Provider Last Name Chad Referring Provider Speciality Internal M edicine Referred Provider Wallace Diana Referred Provider Specialty Gastroentero logy General Notes Rosa Elena Shelton 024 09:43:10 AM EDT > patient scheduled this appointment. Referral/records faxed. Referral Priority Routine Referral Appointment Date 05/18/2024 MEDICATIONS Medication SIG (Take, Route, Frequency, Duration) Notes Start Date End Date Status tiZANidine HCl 4 MG 1 tablet as needed O rally Once a day Active Atorvastatin Calcium 20 MG 1 tablet Oral ly Once a day Active Amoxicillin 500 MG 4 capsules Orally On 03/08/2023 Active Mirabegron ER 50 MG 1 tablet Orally Once a day Active Synthroid 50 MCG 1 tablet in the morn ing on an empty stomach Orally Once a day Active Wegovy 2.4 MG/0.75ML 2.4 MG/0.75 mL Subcutaneous Once a week Active Cyanocobalamin 1000 MCG 1 tablet Orally Once a day Active Multivitamins 1 tablet Orally Once a day Active Magnesium Oxide 400 MG 1 tablet with bettye d Orally Once a day Active Meloxicam 15 MG 1 tablet Orally Once a day for 90 days Active Vitamin D-3 125 MCG (5000 UT) 1 tablet Orally Once a day Active Amoxicillin-Pot Clavulanate 875-125 MG 1 tablet with food Orally Twice a day for 7 days 05/19/2024 Active IMMUNIZATIONS Vaccine Route Administration Date Status Comme nts Influenza IM Intramuscular 04/20/2014 Administered Influenza Quad IM Intramuscular 05/11/2015 Administered Influenza Quad IM Intramuscular 07/19/2016 Administered Influenza Quad IM Intramuscular 04/17/2017 Administered COVID-19 Pfizer BioNTech Unknown 10/07/2020 Administere d COVID-19 Pfizer BioNTech Unknown 09/15/2020 Administere d COVID-19 Pfizer BioNTech Unknown 04/20/2021 Administere d COVID-19 Pfizer BioNTech Unknown 12/23/2021 Administere d Shingrix Unknown 12/23/2021 Administered Flu-aIIV4 Unknown 04/20/2021 Administered Flu-aIIV4 Unknown 04/26/2020 Administered Influenza High Dose IM Intramuscular 04/04/2022 Administer ed Influenza Unknown 07/22/2019 Refused SOCIAL HISTORY Tobacco Use: Social History Observation [...] Never (0 point) Points 2 Interpretation Negative PROBLEMS Problem Type ICD Code Onset Dates Problem Status W/U Status Risk SNOMED Code Notes Problem Morbid (severe) obesity due to excess calories (E66.01) Active confirmed 05484629779860 Problem Sleep apnea, unspecified (G47.30) Active confirmed Sleep a pnea (00316976) Problem Lumbago with sciatic a, right side (M54.41) Active confirmed 893700686 Problem Low back pain (M54.5) Active confirmed 894476766 Problem Acquired hypothyroidism (E03.9) Active confirmed 302469238 Problem Obstructive sleep apnea (G47.33) Active confirmed 96561445 Problem Rosacea (L71.9) Active confirmed 015192 004 Problem Hypercholesterolemia (E78.00) Active confirmed 69917786 Problem Tinnitus of both ear s (H93.13) Active confirmed 1131738485925 VITAL SIGNS Heart Rate 58 /min 05/11/2024 Temperature 97.4 degrees Fahrenheit 05/11/2024 Respiratory Rate 15 /min 05/11/2024 Blood pressure diastolic 70 mm Hg 02/03/2024 Height 64.00 in 05/11/2024 Blood pressure systolic 132 mm Hg 02/03/2024 Weight 224 lbs 05/11/2024 BMI 38.45 kg/m2 05/11/2024 Encounters Encounter Location Date Provider Diagnosis Brenton Bonilla DO, [address] [id number] 07/19/2023 Brenton Bonilla Maik with sciatic a, right side M54.41 Brenton Bonilla DO, [address] [id number] 08/12/2023 Brenton Bonilla DO, [address] [id number] 08/19/2023 Brenton Bonilla DO, [address] [id number] 08/23/2023 Brenton Bonilla DO, [address] [id number] 09/02/2023 Brenton Bonilla DO, [address] [id number] 09/25/2023 Brenton Bonilla DO, [address] [id number] 10/15/2023 Brenton Bonilla DO, [address] [id number] 10/25/2023 Brenton Bonilla DO, [address] [id number] 11/26/2023 Brenton Bonilla DO, [address] [id number] 12/20/2023 Brenton Bonilla DO, [address] [id number] 02/03/2024 Brenton Bonilla DO, [address] [id number] 03/24/2024 Brenton Bonilla DO, [address] [id number] 04/21/2024 Brenton Bonilla Hypercholesterolemia E78.00 and Acquired hypothyroidism E03.9 Brenton Bonilla DO, [address] [id number] 04/21/2024 Brenton Bonilla Morbid (severe) obes ity due to excess calories E66.01 Brenton Bonilla DO, [address] [id number] 05/01/2024 Brenton Bonilla Morbid (severe) obes ity due to excess calories E66.01 Brenton Bonilla DO, [address] [id number] 05/01/2024 Brenton Bonilla Morbid (severe) obes ity due to excess calories E66.01 Brenton Bonilla DO, [address] [id number] 05/15/2024 Brenton Bonilla DO, [address] [id number] 05/19/2024 Brenton Bonilla DO, [address] [id number] 10/04/2023 Brenton Bonilla Hypercholesterolemia E78.00 ; Acquired hypothyroidism E03.9 ; Morbid (severe) obesity due to excess calories E66.01 ; Obstructive sleep apnea G47.33 ; Lumbago with sciatica, right side M54.41 and Tubular adenoma of colon D12.6 Brenton Bonilla DO, [address] [id number] 02/10/2024 Brenton Bonilla Morbid (severe) obes ity due to excess calories E66.01 ; Hypercholesterolemia E78.00 ; Acquired hypothyroidism E03.9 and Lumbago with sciatica, right side M54.41 Brenton Bonilla DO, [address] [id number] 05/11/2024 Brenton Bonilla Morbid (severe) obes ity due to excess calories E66.01 ; Hypercholesterolemia E78.00 ; Acquired hypothyroidism E03.9 ; Obstructive sleep apnea G47.33 and Lumbago with sciatica, right side M54.41 ASSESSMENTS Encounter Date Diagnosis Assessment Notes Treatment Notes Treatment Clinical Notes 07/19/2023 Lumbago with sciatic a, right side (ICD-10 - M54.41) 04/21/2024 Hypercholesterolemia (ICD-10 - E78.00) 04/21/2024 Morbid (severe) obes ity due to excess calories (ICD-10 - E66.01) 05/01/2024 Morbid (severe) obes ity due to excess calories (ICD-10 - E66.01) 05/01/2024 Morbid (severe) obes ity due to excess calories (ICD-10 - E66.01) 10/04/2023 Acquired hypothyroid ism (ICD-10 - E03.9) 10/04/2023 Hypercholesterolemia (ICD-10 - E78.00) 02/10/2024 Morbid (severe) obes ity due to excess calories (ICD-10 - E66.01) 02/10/2024 Hypercholesterolemia (ICD-10 - E78.00) 05/11/2024 Morbid (severe) obes ity due to excess calories (ICD-10 - E66.01) 05/11/2024 Hypercholesterolemia (ICD-10 - E78.00) 04/21/2024 Acquired hypothyroid ism (ICD-10 - E03.9) 10/04/2023 Morbid (severe) obes ity due to excess calories (ICD-10 - E66.01) 02/10/2024 Acquired hypothyroid ism (ICD-10 - E03.9) 05/11/2024 Acquired hypothyroid ism (ICD-10 - E03.9) 10/04/2023 Obstructive sleep ap lawanda (ICD-10 - G47.33) Continue nightly CPAP 02/10/2024 Lumbago with sciatic a, right side (ICD-10 - M54.41) 05/11/2024 Obstructive sleep ap lawanda (ICD-10 - G47.33) Nightly CPAP 10/04/2023 Lumbago with sciatic a, right side (ICD-10 - M54.41) 05/11/2024 Lumbago with sciatic a, right side (ICD-10 - M54.41) 10/04/2023 Tubular adenoma of rachel tirado (ICD-10 - D12.6) 02/10/2024 Olga Harper uses ibuprofen whch gives her some relief PLAN OF TREATMENT Pending Test Test Name Order Date PROFILE, FASTING 02/10/2024 VITAMIN D 25-OH TOTAL 02/10/2024 Next Appt Details Provider Name:Brenton clark, 11/11/2024 11:00:00 AM, [address] [place] [address], [place], [place], [id number], Insurance Providers Payer Name Payer Address Payer Phone Subscriber Number Group Number Insured Name Patient Relationship to Insured Coverage Start Date Coverage End Date MEDICARE [address] [place] [phone] [id number] Meredith Casey Self - patient is the insured [facility] [address] [place] [address] [id number] Meredith Casey Self - patient is the insured MEDICAL (GENERAL) HISTORY Medical History History ICD Code hypertension hypercholesterolemia hypothyroidism edema obesity obstructive sleep apnea on nightly CPAP cervical strain gastroesophageal reflux disease (GERD) peptic ulcer disease duodenitis umbilical hernia rhus dermatitis plantar fasciitis osteoarthritis depression urinary incontinence positive PPD s/p INH for a year rosacea Back pain degenerative disc disease Surgical History Surgery Date(Month/Year) umbilical hernia repair tubal surgery secondary to a tubal block age lap band surgery L2-L3 decompression and fusion with inst rumentation 01/2015 right hip replacement 10/2022
[2024-06-19 13:43] VITALS: BMI 37.2
== END 2024-06-19 15:19 | disposition home or self-care (01) ==
PROVIDERS: PCP Internal Medicine; Referring Provider Physical Medicine & Rehabilitation; Visit Provider Neurological Surgery
DX: M46.1 Sacroiliitis, not elsewhere classified (principal)
CPT/HCPCS: 99204

== ENCOUNTER → 2024-06-19 13:34 | Outpatient (BNVA) | payer MEDICARE, OTHER, SELFPAY | PROVIDERS: PCP Internal Medicine; Referring Provider Physical Medicine & Rehabilitation; Visit Provider Neurological Surgery | DX: M46.1 Sacroiliitis, not elsewhere classified (principal) | CPT/HCPCS: 99202 ==

== ENCOUNTER 2024-07-28 07:53 | Day surgery (SDC) | payer MEDICARE, OTHER, SELFPAY ==
[2024-06-03 16:23] VITALS: BMI 36.0
--- NOTE | 2024-06-08 09:29 | HO.ANESPROP2 ---
HPI - Anesthesia Eval Consult details Narrative: 74yo F for Colonoscopy Anesthesia Pre-Procedure Meds Is the patient on any of the following meds?: GLP1/DPP4 PMFSH Active Problems Active Problems: All Active Problems KANIKA on CPAP (Acute) Obesity (BMI 30-39.9) (Acute) Past Medical History Medical History (Updated 04/06/24 @ 16:05 by Bev Niño MD) KANIKA on CPAP Obesity (BMI 30-39.9) Urinary urgency Rosacea Hypothyroidism Hypercholesteremia Surgical History Surgical History (Updated 06/03/24 @ 16:10 by Lashay Montes RN) Hx of arthroscopic knee surgery History of right hip replacement (10/26/22) Hx of umbilical hernia repair History of removal of laparoscopic gastric banding device (~2018) Hx of laparoscopic gastric banding (~2009) H/O Spinal surgery (~2014) Social History Social History Patient Tobacco Use Status: Former Tobacco user Current occupational status: retired 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 Meds Allergies Allergy/AdvReac Type Severity Reaction Status Date / Time codeine [CODEINE] Allergy Intermediate HALLUCINATI Unverified 04/06/24 15:58 ON morphine [MORPHINE] Allergy Intermediate NAUSEA & Unverified 04/06/24 15:58 VOMITING, HALLUCINATIONS, nausea and vomiting Codeine Phosphate Allergy Unknown nausea and Uncoded 04/06/24 15:58 vomiting Home Medications ?Medication ?Instructions ?Recorded ?Confirmed ?Last Taken ?Type atorvastatin 20 mg tablet 20 mg PO BEDTIME 02/01/21 06/03/24 Unknown History doxycycline calcium PO 02/01/21 04/06/24 Unknown History mirabegron 25 mg tablet,extended 50 mg PO DAILY 02/01/21 06/03/24 Unknown History release 24 hr (Myrbetriq) cyclobenzaprine 10 mg tablet 10 mg PO TID PRN 01/02/24 04/06/24 Unknown History magnesium aspart,citrate,oxide mg PO .bid PRN 01/02/24 04/06/24 Unknown History meloxicam 7.5 mg tablet 15 mg PO DAILY PRN Pain 01/02/24 06/03/24 Unknown History semaglutide (weight loss) 1 mg/0.5 1 mg subcut Q7D 01/02/24 04/06/24 Unknown History mL subcutaneous pen injector (Wegovy) tizanidine 4 mg capsule 4 mg PO BID PRN Pain 01/02/24 06/03/24 Unknown History tramadol 50 mg tablet 50 mg PO DAILY PRN Pain 01/02/24 06/03/24 Unknown History vitamin B complex 1 cap PO DAILY 01/02/24 04/06/24 Unknown History cholecalciferol (vitamin D3) 25 25 mcg PO DAILY 06/03/24 06/03/24 Unknown History mcg (1,000 unit) capsule (Vitamin D3) cyanocobalamin (vitamin B-12) 100 100 mcg PO DAILY 06/03/24 06/03/24 Unknown History mcg tablet (Vitamin B-12) diphenhydramine HCl 25 mg capsule 25 mg PO BEDTIME PRN Insomnia 06/03/24 06/03/24 Unknown History (Sleep Aid (diphenhydramine)) ibuprofen 200 mg tablet (Advil) 200 mg PO Q8H PRN Pain 06/03/24 06/03/24 Unknown History levothyroxine 50 mcg tablet 50 mcg PO DAILY 06/03/24 06/03/24 Unknown History (Synthroid) melatonin 3 mg capsule 3 mg PO BEDTIME PRN Insomnia 06/03/24 06/03/24 Unknown History multivitamin 1 tab PO DAILY 06/03/24 06/03/24 Unknown History semaglutide (weight loss) 2.4 2.4 mg subcut .QTUESDAY 06/03/24 06/03/24 Unknown History mg/0.75 mL subcutaneous pen injector (Wegovy) Exam Height,Weight and Vital Signs: Height 5 ft 6 in Weight 101.151 kg Assessment and Plan Assessment Anesthesia Assessment: Chart Reviewed
--- NOTE | 2024-07-27 12:05 | HO.ANESPROP2 ---
Documented by User: Johanne Rooney NP 07/27/24 12:05 HPI - Anesthesia Eval Consult details Narrative: 74yo F for Colonoscopy Anesthesia Pre-Procedure Meds Is the patient on any of the following meds?: GLP1/DPP4 PMFSH Active Problems Active Problems: All Active Problems Sacroiliitis, not elsewhere classified (Acute) KAINKA on CPAP (Acute) Obesity (BMI 30-39.9) (Acute) Past Medical History Medical History KANIKA on CPAP Obesity (BMI 30-39.9) Urinary urgency Rosacea Hypothyroidism Hypercholesteremia Surgical History Surgical History Hx of arthroscopic knee surgery History of right hip replacement (10/26/22) Hx of umbilical hernia repair History of removal of laparoscopic gastric banding device (~2018) Hx of laparoscopic gastric banding (~2009) H/O Spinal surgery (~2014) Social History Social History Patient Tobacco Use Status: Former Tobacco user Use of substances other than those prescribed or required for medical reasons: No Advance Directives: No Advance Directives Information Provided: Yes Current occupational status: retired 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 Meds Allergies Allergy/AdvReac Type Severity Reaction Status Date / Time codeine [CODEINE] Allergy Intermediate HALLUCINATI Verified 07/28/24 08:13 ON morphine [MORPHINE] Allergy Intermediate NAUSEA & Verified 07/28/24 08:13 VOMITING, HALLUCINATIONS, nausea and vomiting Codeine Phosphate Allergy Unknown nausea and Uncoded 07/28/24 08:13 vomiting Home Medications ?Medication ?Instructions ?Recorded ?Confirmed ?Last Taken ?Type atorvastatin 20 mg tablet 20 mg PO BEDTIME 02/01/21 07/28/24 Unknown History doxycycline calcium PO 02/01/21 04/06/24 Unknown History mirabegron 25 mg tablet,extended 50 mg PO DAILY 02/01/21 07/28/24 Unknown History release 24 hr (Myrbetriq) cyclobenzaprine 10 mg tablet 10 mg PO TID PRN Muscle Spasm 01/02/24 07/28/24 Unknown History magnesium aspart,citrate,oxide mg PO .bid PRN unknown 01/02/24 04/06/24 Unknown History meloxicam 7.5 mg tablet 15 mg PO DAILY PRN Pain 01/02/24 07/28/24 07/14/24 History semaglutide (weight loss) 1 mg/0.5 1 mg subcut Q7D 01/02/24 07/28/24 07/21/24 History mL subcutaneous pen injector (Wegovy) tizanidine 4 mg capsule 4 mg PO BID PRN Pain 01/02/24 07/28/24 Unknown History vitamin B complex 1 cap PO DAILY 01/02/24 07/28/24 Unknown History cholecalciferol (vitamin D3) 25 25 mcg PO DAILY 06/03/24 07/28/24 Unknown History mcg (1,000 unit) capsule (Vitamin D3) cyanocobalamin (vitamin B-12) 100 100 mcg PO DAILY 06/03/24 07/28/24 Unknown History mcg tablet (Vitamin B-12) diphenhydramine HCl 25 mg capsule 25 mg PO BEDTIME PRN Insomnia 06/03/24 07/28/24 Unknown History (Sleep Aid (diphenhydramine)) ibuprofen 200 mg tablet (Advil) 200 mg PO Q8H PRN Pain 06/03/24 07/28/24 07/14/24 History levothyroxine 50 mcg tablet 50 mcg PO DAILY 06/03/24 07/28/24 07/28/24 05:30 History (Synthroid) melatonin 3 mg capsule 3 mg PO BEDTIME PRN Insomnia 06/03/24 07/28/24 Unknown History multivitamin 1 tab PO DAILY 06/03/24 07/28/24 Unknown History Exam Height,Weight and Vital Signs: Height 5 ft 6 in Weight 101.151 kg Assessment and Plan Assessment Anesthesia Assessment: Chart Reviewed Documented by User: Tanvi Bassett MD 07/28/24 09:04 PMFSH Past Medical History Medical History KANIKA on CPAP Obesity (BMI 30-39.9) Urinary urgency Rosacea Hypothyroidism Hypercholesteremia Family History Family history of problems with anesthesia: No Surgical History Surgical History Hx of arthroscopic knee surgery History of right hip replacement (10/26/22) Hx of umbilical hernia repair History of removal of laparoscopic gastric banding device (~2018) Hx of laparoscopic gastric banding (~2009) H/O Spinal surgery (~2014) History of Problems with Anesthesia: No Social History Social History Patient Tobacco Use Status: Former Tobacco user Use of substances other than those prescribed or required for medical reasons: No Advance Directives: No Advance Directives Information Provided: Yes Current occupational status: retired 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 Meds Allergies Allergy/AdvReac Type Severity Reaction Status Date / Time codeine [CODEINE] Allergy Intermediate HALLUCINATI Verified 07/28/24 08:13 ON morphine [MORPHINE] Allergy Intermediate NAUSEA & Verified 07/28/24 08:13 VOMITING, HALLUCINATIONS, nausea and vomiting Codeine Phosphate Allergy Unknown nausea and Uncoded 07/28/24 08:13 vomiting Home Medications ?Medication ?Instructions ?Recorded ?Confirmed ?Last Taken ?Type atorvastatin 20 mg tablet 20 mg PO BEDTIME 02/01/21 07/28/24 Unknown History doxycycline calcium PO 02/01/21 04/06/24 Unknown History mirabegron 25 mg tablet,extended 50 mg PO DAILY 02/01/21 07/28/24 Unknown History release 24 hr (Myrbetriq) cyclobenzaprine 10 mg tablet 10 mg PO TID PRN Muscle Spasm 01/02/24 07/28/24 Unknown History magnesium aspart,citrate,oxide mg PO .bid PRN unknown 01/02/24 04/06/24 Unknown History meloxicam 7.5 mg tablet 15 mg PO DAILY PRN Pain 01/02/24 07/28/24 07/14/24 History semaglutide (weight loss) 1 mg/0.5 1 mg subcut Q7D 01/02/24 07/28/24 07/21/24 History mL subcutaneous pen injector (Galdino) tizanidine 4 mg capsule 4 mg PO BID PRN Pain 01/02/24 07/28/24 Unknown History vitamin B complex 1 cap PO DAILY 01/02/24 07/28/24 Unknown History cholecalciferol (vitamin D3) 25 25 mcg PO DAILY 06/03/24 07/28/24 Unknown History mcg (1,000 unit) capsule (Vitamin D3) cyanocobalamin (vitamin B-12) 100 100 mcg PO DAILY 06/03/24 07/28/24 Unknown History mcg tablet (Vitamin B-12) diphenhydramine HCl 25 mg capsule 25 mg PO BEDTIME PRN Insomnia 06/03/24 07/28/24 Unknown History (Sleep Aid (diphenhydramine)) ibuprofen 200 mg tablet (Advil) 200 mg PO Q8H PRN Pain 06/03/24 07/28/24 07/14/24 History levothyroxine 50 mcg tablet 50 mcg PO DAILY 06/03/24 07/28/24 07/28/24 05:30 History (Synthroid) melatonin 3 mg capsule 3 mg PO BEDTIME PRN Insomnia 06/03/24 07/28/24 Unknown History multivitamin 1 tab PO DAILY 06/03/24 07/28/24 Unknown History Exam Airway TM Dist: >3cm Neck ROM: Full Heart: rrr Lungs: cta Assessment and Plan Assessment Anesthesia Assessment: Anesthesia Plan Discussed Final Anesthetic Review Family History of Problems with Anesthesia: No History of Problems with Anesthesia: No NPO: Yes ASA Class: III Final Preanesthetic Review: No Changes in Pt Med Stat, Meds/Allgs Chart Reviewed, Consent Obtained/Reviewed and Anes Risks/Benef Reviewed Patient Risk: Intermediate Procedure Risk: Low Anesthetic Plan Anesthetic Plan: MAC: Disposition: Standard PACU
--- NOTE | 2024-07-28 08:21 | MHC.SHP ---
Pre-Procedural Eval Section A - 24 Hr Update-Section A only Date of Service: 07/28/24 Section B - Complete if H&P > 30 days Chief Complaint: screening Details of Present Illness: see H&P no changes Relevant Family History (Specify if Yes): No Relevant Social History: None Present Medications: see Short Stay Collaborative assessment Medical History: No relevant PMH History of Previous Operations: No relevant previous surgery Allergies: Allergies Allergy/AdvReac Type Severity Reaction Status Date / Time codeine [CODEINE] Allergy Intermediate HALLUCINATI Verified 07/28/24 08:13 ON morphine [MORPHINE] Allergy Intermediate NAUSEA & Verified 07/28/24 08:13 VOMITING, HALLUCINATIONS, nausea and vomiting Codeine Phosphate Allergy Unknown nausea and Uncoded 07/28/24 08:13 vomiting Review of Systems Sugical H&P ROS: Negative: Constitution, Cardiovascular, Respiratory, Neurological, Psychiatric, Hem-Onc, Allergic/Immunologic, Gastrointestinal, Genitourinary, Musculoskeletal, Integumentary, Endocrine and Eyes/Ears/Nose/Throat Exam Surgical H&P Exam: Normal: HEENT, Normal: Heart, Normal: Lungs, Normal: Extremities, Normal: Abdomen, Normal: Skin and Normal: Neurological Plan Diagnosis/Plan: Unchanged I have reviewed the history and physical and performed a pertinent physical examination on my patient. No changes have occurred unless specified. Time Spent With Patient Time: Total time managing care of this patient today ____ minutes.
[2024-07-28 08:30] VITALS: BP 162/67; PULSE 55; RESP 16; TEMP 36.8; O2SAT 98
[2024-07-28 08:46] VITALS: BMI 35.3
[2024-07-28 09:48] VITALS: BP 140/59; PULSE 53; RESP 16; TEMP 36.2; O2SAT 99
[2024-07-28 10:00] VITALS: BP 142/53; PULSE 56; RESP 16; TEMP 36.2; O2SAT 99
--- NOTE | 2024-07-28 10:09 | OP_ITS ---
DATE OF SERVICE: 07/28/2024 SURGEON: Wallace Diana MD INDICATIONS: Colon cancer screening and prior history of adenomatous colon polyps. PREOPERATIVE DIAGNOSIS: POSTOPERATIVE DIAGNOSIS: PROCEDURE PERFORMED: Colonoscopy to the terminal ileum with biopsy. ESTIMATED BLOOD LOSS: COMPLICATIONS: ANESTHESIA: Medications, monitored anesthesia care. ASSISTANTS: SPECIMENS: DESCRIPTION OF PROCEDURE: A history and physical performed. The risks and benefits of the procedure were explained to the patient. Informed consent was obtained. The patient was placed in the left lateral decubitus position. A digital rectal exam was performed and was found to be normal. The Olympus pediatric video colonoscope was introduced in the rectum and advanced to the cecum. The cecum was identified by transillumination, palpation, and identification of ileocecal valve. Examination was performed. The scope was removed. She tolerated the procedure well and was taken to recovery area in stable condition. FINDINGS: The terminal ileum was examined and appeared normal. The visualized colonic mucosa was within normal limits without evidence of masses or ulcers. The quality of the prep was good. Two polyps were identified and removed with biopsy forceps. Both measured less than 5 mm. They were located at 80 and 70 cm. There was extensive sigmoid diverticulosis with tortuous sigmoid. No other polyps were identified. Retroflexed examination showed some moderate-sized internal hemorrhoids. IMPRESSION: Colon polyps. RECOMMENDATION: Follow up the biopsy results. MD KIRK Newton/JAIME / [id number]
== END 2024-07-28 10:24 | disposition home or self-care (01) ==
PROVIDERS: PCP Internal Medicine; Visit Provider Internal Medicine Gastroenterology
PROC: 0DJD8ZZ Inspection of Lower Intestinal Tract, Via Natural or Artificial Opening Endoscopic (ICD-10-PCS; CPT 45378; principal; 2024-07-28 09:10)
DX: Z12.11 Encounter for screening for malignant neoplasm of colon (principal); D12.4 Benign neoplasm of descending colon; K56.2 Volvulus; K57.30 Diverticulosis of large intestine without perforation or abscess without bleeding; K64.8 Other hemorrhoids; Z86.0101 Personal history of adenomatous and serrated colon polyps; E03.9 Hypothyroidism, unspecified; E78.5 Hyperlipidemia, unspecified; G47.33 Obstructive sleep apnea (adult) (pediatric); Z99.89 Dependence on other enabling machines and devices; Z87.891 Personal history of nicotine dependence; Z79.02 Long term (current) use of antithrombotics/antiplatelets; Z79.899 Other long term (current) drug therapy
CPT/HCPCS: 45380; 88305; J2003; J2704

== ENCOUNTER 2024-08-05 10:52 | Outpatient (AMB) | payer MEDICARE, OTHER, SELFPAY ==
--- NOTE | 2024-08-05 11:03 | MHC.OFFVIS ---
Vital Signs 08/05/24 11:05 Height 5 ft 6 in Weight 221 lb BMI 35.7 BP 102/68 Blood Pressure Location Lt brachial Position Sitting Pulse 54 Pulse Source Pulse Oximeter Pulse Oximetry (%) 98 Oxygen Delivery Method Room Air Intake Visit Reasons: Obstructive sleep apnea Intake Note: pt is here for follow up and she is using her cpap, but needs headgear Resmed N20 headgear. Cutter Operator Tile Required: No Allergies codeine [CODEINE] Allergy (Intermediate, Verified 08/05/24 11:51) HALLUCINATION morphine [MORPHINE] Allergy (Intermediate, Verified 08/05/24 11:51) NAUSEA & VOMITING, HALLUCINATIONS, nausea and vomiting Codeine Phosphate Allergy (Unknown, Uncoded 08/05/24 11:51) nausea and vomiting Medication List - Last Reconciled 08/05/24 by Bev Niño MD atorvastatin 20 mg PO BEDTIME cholecalciferol (vitamin D3) (Vitamin D3) 25 mcg PO DAILY cyanocobalamin (vitamin B-12) (Vitamin B-12) 100 mcg PO DAILY cyclobenzaprine 10 mg PO TID PRN diphenhydramine HCl (Sleep Aid (diphenhydramine)) 25 mg PO BEDTIME PRN ibuprofen (Advil) 200 mg PO Q8H PRN levothyroxine (Synthroid) 50 mcg PO DAILY magnesium aspart,citrate,oxide mg PO .bid PRN melatonin 3 mg PO BEDTIME PRN meloxicam 15 mg PO DAILY PRN mirabegron ER (Myrbetriq) 50 mg PO DAILY multivitamin 1 tab PO DAILY semaglutide (weight loss) (Wegovy) 1 mg subcut Q7D semaglutide (weight loss) (Wegovy) 2.4 mg (0.75 mL) subcut .QTUESDAY tizanidine 4 mg PO BID PRN vitamin B complex 1 cap PO DAILY Do you need a note to return to daycare/school/sports/work: No HPI HPI Obstructive sleep apnea: Details: MRS. VELARDE 74 YEARS OLD FEMALE, COMES FOR FOLLOW-UP FOR HER OBSTRUCTIVE SLEEP APNEA. SHE HAS BEEN ON CPAP THERAPY FOR QUITE A FEW YEARS HER SLEEP APNEA. SHE HAS BEEN GROSSLY OVERWEIGHT CURRENTLY TRYING TO LOSE WEIGHT AND HAS BEEN STARTED ON WAGOVY INJECTIONS. SO FAR SHE HAS LOST ONLY A FEW LBS. SHE USES CPAP EVERY NIGHT , LATELY SHE IS UNDER SOME STRESS BECAUSE HER MOTHER LAST MONTH, AND HER SLEEP HAS BEEN SOMEWHAT INTERRUPTED. SHE THOUGHT SHE WAS SLEEPING ONLY FOR 3-4 HOURS PER NIGHT, BUT ACCORDING TO THE COMPLIANCE REPORT SHE HAS BEEN USING CPAP FOR ALMOST CLOSE TO 6 HOURS EVERY NIGHT. SHE HAS DAYTIME SLEEPINESS IN THIS MAY BE DUE TO THE AFTER EFFECT OF SLEEP MEDS THAT SHE TAKES SUCH FEN HYDRO REMAIN 25 MG AT BEDTIME OR MELATONIN. SHE HAS SOME ISSUES WITH THE HEAD GEAR WHICH NEEDS TO BE CHANGED. [facility] Medical History KANIKA on CPAP Obesity (BMI 30-39.9) Urinary urgency Rosacea Hypothyroidism Hypercholesteremia Surgical History Hx of arthroscopic knee surgery History of right hip replacement (10/26/22) Hx of umbilical hernia repair History of removal of laparoscopic gastric banding device (~2018) Hx of laparoscopic gastric banding (~2009) H/O Spinal surgery (~2014) Social History Patient Tobacco Use Status: Former Tobacco user Current occupational status: retired 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 Review of Systems Const All systems reviewed & are unremarkable except as noted in HPI and below Eyes Reports no additional complaints ENT Reports nasal congestion (Mild off and on) Card Denies syncope, Denies irregular heart rhythm and Denies leg edema Resp Reports as per HPI GI Reports no additional complaints Reports other (HAS CHRONIC URINARY URGENCY PROBLEMS) Musc Reports back pain and Reports myalgias Skin/Breast Reports system reviewed and no additional complaints, except as documented Neuro Reports no additional complaints and Denies syncope Psych Reports no additional complaints Endo Reports other (Diabetes mellitus being controlled with meds) Aller/Immun Reports no additional complaints Physical Exam Vital Signs: Last Vital Signs Pulse 54 08/05/24 11:05 BP 102/68 08/05/24 11:05 Pulse Ox 98 08/05/24 11:05 Oxygen Delivery Method Room Air 08/05/24 11:05 BMI result Body Mass Index 35.7 Const General: healthy appearing, comfortable, no acute distress, alert and awake Orientation/consciousness: patient oriented x3 HEENT Head: Yes normal to inspection General nose exam: No nasal polyps present, No nasal discharge present and Other nasal findings present (No active nasal congestion at this time) Face and sinus: Yes sinuses nontender Mouth: oropharynx abnormals (Crowded oropharynx, Mallampati class 3) Throat: Yes posterior oropharynx normal Eyes General: appearance normal, both eyes and all related structures Neck Neck: Yes normal visual inspection, Yes no lymphadenopathy, Yes trachea midline and Yes no JVD Thyroid: Thyroid normal Chest Chest palpation & inspection: normal inspection of the chest, normal palpation of entire chest wall and no tenderness Resp Other: Percussion note is resonant, breath sounds are equal on both sides slightly distant, No wheezes rhonchi or crepitations are heard Cardio Palpation: normal PMI Rate: regular rate Rhythm: regular rhythm Heart sounds: no gallops and no murmurs Peripheral pulses: Peripheral pulses 2+ throughout GI Palpation (GI): Soft to palpation, nontender, No hepatosplenomegaly present and no masses Auscultation: normal bowel sounds Back/Spine/Pelvis Thoracic/Lumbar Spine: thoracic and lumbar spine normal to inspection and thoraco-lumbar ROM limited Skin General skin exam: no rashes or lesions noted Neuro General: patient oriented x3 and no focal motor deficits Cranial nerves: Yes CN's II-XII intact bilaterally Extrem General: Yes normal to inspection, Yes no clubbing, cyanosis or edema and Yes no calf tenderness Psych Appearance: grossly normal and well kempt Speech and movement: Normal speech and movement present Assessment & Plan Assessment & Plan (1) Obesity (BMI 30-39.9): Comment: PATIENT IS A KNOWN CASE OF CHRONIC OBESITY, HAS HAD GASTRIC SURGERY IN THE PAST, ( LAP BAND ) HAD IT REMOVED DUE TO COMPLICATIONS. REGAINED SOME WEIGHT AND NOW TRYING TO KEEP IT UNDER CONTROL WITH DIET. SHE IS ALSO STARTED ON SEMAGLUTIDE ( WAGOVY ) INJECTIONS Code(s): E66.9 - Obesity, unspecified Category: Medical Plan: ENCOURAGED TO WATCH DIET. AFTER THE BACK PROCEDURE WHEN HER WALKING IMPROVE SHE SHOULD START WALKING EVERY DAY. HOPEFULLY WITH THE INJECTIONS SHE WOULD START LOSING MORE WEIGHT. (2) KANIKA on CPAP: Comment: PATIENT IS KNOWN CASE OF OBSTRUCTIVE SLEEP APNEA FOR MANY YEARS, LAST SLEEP STUDY IN 2018 AND 2019. HAS BEEN USING CPAP VERY REGULARLY, WITH NASAL MASK AND PRESSURE OF 13 CM, SHE HAS BEEN BENEFITING FROM THE USE OF CPAP. IN FACT SHE WOULD NOT BE ABLE TO SLEEP WITHOUT THE CPAP ON. NOW SHE HAS A NEW CPAP DEVICE WHICH IS WORKING WELL. SHE HAS SIGNIFICANT AIR LEAK PROBLEM WHEN SHE IS SLEEPING IN LATERAL POSITION. SHE THINKS SHE IS NOT GETTING GOOD SLEEP, BUT ACCORDING TO THE COMPLIANCE REPORT SHE IS USING CPAP CLOSE TO 5 HOURS 49 MINUTES EVERY NIGHT. Code(s): G47.33 - Obstructive sleep apnea (adult) (pediatric) Category: Medical Plan: DISCUSS THE FINDINGS OF COMPLIANCE REPORT, I TOLD HER THAT SHE IS USING THE CPAP FOR ADEQUATE NUMBER OF HOURS EVERY NIGHT. USE OF SLEEP AID MEDS IS DISCOURAGED, AND SHOULD BE USED ONLY SPARINGLY. AIR LEAK PROBLEM IS DUE TO LOSE AT GEAR , A NEW SET IS PRESCRIBED RESMED N-20 Coding Level of Care Code Est Pt Level 3 (68433) Diagnoses Obesity (BMI 30-39.9) E66.9 KANIKA on CPAP G47.33
[2024-08-05 11:05] VITALS: BP 102/68; PULSE 54; O2SAT 98; BMI 35.7
--- OUTSIDE RECORDS SUMMARY | 2024-08-05 13:01 | XMS_ITS ---
Author Organization [facility] [place] Address [address] [facility] [place] [address] Care Team Providers Care Textile Worker Name Role Phone Brenton Bonilla MD Primary Care Provider Unavail able Black, Sejal Unavailable [phone] Allergies Allergen (clinical drug ingredient) Drug/Non Drug [...] Problem Acquired hammer toe of right foot (3849942046197782) Other hammer toe(s) (acquired), right foot (M20.41) Active confirmed Problem Localized, primary osteoarthritis of the ankle and/or foot (856702943) Arthritis of joint of lesser toe, right (M19.071) Active confirmed Problem [id number] Hammertoe of right foot (M20.41) Active confirmed Vital Signs Height 5 ft 4.5 in in 03/16/2024 Weight 225 lbs lbs 03/16/2024 BMI 38.02 kg/m2 03/16/2024 Encounters Encounter Location Date Provider Diagnosis [facility] [address] [address] 03/16/2024 Sejal Black Pain in right toe(s) [...] Meredith CASEY CDOB:[birth year] (73 yo F)Acc No.[id number]:03/16/2024 Progress Notes Patient:?Meredith Casey Provider:?Sejal Ennis DPM :1950???Age:73 Y???Sex:Female D ate:03/16/2024 Address:[address] [place], [place] [phone] Pcp:Brenton Bonilla MD Subjective: * Chief Complaints: [...] tubal blockage lap band 04/01/19right hip replacement 10/20220382A9-R9 decompression and fusion with intrumentation 01/2015torn meniscus- [...] yes, golf. ?Marital status: single. 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 * Medications:?TakingMelatonin Aller-Chlor advil Vitamin B12 1000 [...] Ennis DPM Date:?2023 Generated for Thien turner/Bandar/Darnell on:?08/05/2024 01:00 PM EST History and Physical Notes * [...]
--- OUTSIDE RECORDS SUMMARY | 2024-08-05 13:01 | XMS_ITS ---
Author Organization [facility] Address [address] [facility] [place] [address] Care Team Providers Care Rouge Sifter And Miller Name Role Phone Brenton Bonilla MD Primary Care Provider Unavail able Black, Sejal Unavailable [phone] Allergies Allergen (clinical drug ingredient) Drug/Non Drug [...] Ulcer of toe of left foot (disorder) (4914297537 8939321) Skin ulcer of toe of left foot, limited to breakdown of skin (L97.521) Active confirmed Response to treatment Problem Ulcer of toe of right foot (disorder) (8589951381 2880075) Skin ulcer of toe of right foot, limited to breakdown of skin (L97.511) Active confirmed Response to treatment,Non applicable Vital Signs Height 5ft 4in in 04/27/2024 Weight 221 lbs 04/27/2024 BMI 37.93 kg/m2 04/27/2024 Procedures Procedure Date Ordered Date Performed Result Body Sit e 48483- Debride <25 sq cm 04/27/2024 N/A Encounters Encounter Location Date Provider Diagnosis [facility] [place] [address] [place] [address] 04/27/2024 Sejal Black Skin ulcer of toe [...] INSTRUCTIONS.pdf) Pending Test Test Name Order Date 06962- Debride <25 sq cm 04/27/2024 Next Appt [...] of the wound post debridement is stable (17529) Progress Notes * Meredith CASEY CDOB:[birth year] (73 yo F)Acc No.[id number]:04/27/2024 Progress Notes Patient:?Meredith Casey Provider:?Sejal Ennis DPM :1950???Age:73 Y???Sex:Female D ate:04/27/2024 Address:[address] [place], [place] [phone] Pcp:Brenton Bonilla MD Subjective: * Chief Complaints: * ???Open sore - Toe * HPI: ???Skin problems:?Pt States PCP Visit: ?DATE?03/25/2024 ?Treatments:?, soaks , Topical abx.? * Medical History:? * Surgical History:?umbilical hernia repair tubal surgery secondary to tubal blockage lap band 04/01/19right hip replacement 10/20220616E1-D5 decompression and fusion with intrumentation 01/2015torn meniscus- [...] of the wound post debridement is stable (44439).? * Procedure Codes:?01626 ACTIV E WOUND CARE/20 CM OR < [...] Ennis DPM Date:?2023 Generated for Thien turner/Bandar/Rashmiitting on:?08/05/2024 01:01 PM EST History and Physical Notes * [...]
--- OUTSIDE RECORDS SUMMARY | 2024-08-05 13:01 | XMS_ITS ---
Author Organization [facility] Address [address] [facility] [place] [address] Care Team Providers Care Office Inspector Name Role Phone Brenton Bonilla MD Primary Care Provider Unavail able Black, Sejal Unavailable [phone] Allergies Allergen (clinical drug ingredient) Drug/Non Drug [...] Risk Notes Problem Mononeuropathy of lower limb (781066561) Neuritis of left foot (G57.92) Active confirmed Problem Plantar wart (44481946) Plantar wart (B07.0) Active confirmed Vital Signs Height 5ft 4.5in in 04/13/2024 Weight 221 lbs 04/13/2024 BMI 37.34 kg/m2 04/13/2024 Procedures Procedure Date Ordered Date Performed Result Body Sit e 81497-Lime Destruction, 1-14 04/13/2024 N/A 55423-Dxifihve Plate 04/13/2024 N/A Encounters Encounter Location Date Provider Diagnosis [facility] [address] [address] 04/13/2024 Sejal Black Ingrown nail L60.0 ; [...] Treatment Pending Test Test Name Order Date 45363-Ajxm Destruction, 1-14 04/13/2024 86403-Pkppjeuw Plate 04/13/2024 Next Appt Details Follow Up: 2 Weeks, Reason: Procedure Notes * Category Sub-Category Detail Notes Wart Treatment Procedure Verrucae were de brided to pin-point bleeding margins with sterile 15 surgical blade, silver nitrate chemocautery applied, recomm. immune-boosting meds such as zinc, recomm. follow up with topical chemosurgical agents, Pt defers any other forms of tx - 86445 Nail Avulsion Procedure A fine sterile e [...] Motrin was recommended for pain or discomfort (16090) , Pt DEFERS matricectomy Anesthesia 3cc of 1 percent Lid ocaine Plain local anesthesic utilizing aseptic technique Location Lateral nail border , T7 Progress Notes * Meredith CASEY CDOB:[birth year] (73 yo F)Acc No.[id number]:04/13/2024 Progress Note Patient:Meredith Sandoval Provider:?Sejal Ennis DPM :1950???Age:73 Y???Sex:Female D ate:04/13/2024 Address:[address] [place], [place] [phone] Pcp:Brenton Bonilla MD Subjective: * Chief Complaints: [...] tubal blockage lap band 04/01/19right hip replacement 10/20221378Q8-O5 decompression and fusion with intrumentation 01/2015torn meniscus- [...] yes, golf. ?Marital status: single. 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 * Medications:?TakingMelatonin Aller-Chlor advil Vitamin B12 1000 [...] B07.0 (Primary)? Plan: * Treatment: 2.?Ingrown nail?Procedure: 20302-Krporaiv Plate * Procedures:?Nail Avulsion:?Location?Lateral nail border , [...] Motrin was recommended for pain or discomfort (05088) , Pt DEFERS matricectomy.?Wart Treatment:?Procedure?Verrucae were debrided to pin-point bleeding margins with sterile 15 surgical blade, silver nitrate chemocautery applied, recomm. immune-boosting meds such as zinc, recomm. follow up with topical chemosurgical agents, Pt defers any other forms of tx - 14035.? * Procedure Codes:?25121 Avuls ion Plate, Modifiers: T7 38640 Wart Destruction, 1- 14, Modifiers: XS * [...]
--- OUTSIDE RECORDS SUMMARY | 2024-08-05 13:01 | XMS_ITS ---
Author Organization [facility] Address [address] [place] [address] Care Team Providers Care Strand Forming Machine Operator Name Role Phone Chad (RETIRED) Brenton JACKSON Primary Care Provid er Unavailable Wallace Diana Jr Unavailable REASON FOR VISIT colon screening Encounters Encounter Location Date Provider Diagnosis [facility] Out[facility] [address] [place] [phone] 07/28/2024 Wallace Diana Jr Colon cancer screening Z12.11 ; Personal history of colonic polyps Z86.0100 and Colon polyps K63.5 ASSESSMENTS Encounter Date Diagnosis Assessment Notes Treatment Notes Treatment Clinical Notes 07/28/2024 Colon cancer screening (ICD-10 - Z12.11) 07/28/2024 Personal history of colonic polyps (ICD-10 - Z86.0100) 07/28/2024 Colon polyps (ICD-10 - K63.5) PLAN OF TREATMENT No Information
--- OUTSIDE RECORDS SUMMARY | 2024-08-05 13:01 | XMS_ITS ---
Author Organization Brenton Bonilla DO, FACP Address [address] [place], [place] [phone] Care Team Providers Care Test Case Developer Name Role Phone ChadBrenton Primary Care Provider REASON FOR VISIT Message MEDICATIONS Medication SIG (Take, Route, Frequency, Duration) Notes Start Date End Date Status Amoxicillin-Pot Clavulanate 875-125 MG 1 tablet with food Orally Twice a day for 7 days 05/19/2024 Active Encounters Encounter Location Date Provider Diagnosis [facility] [address] [place], [place] [phone] 05/19/2024 Brenton Bonilla PLAN OF TREATMENT Medication Medication Name Sig Start Date Stop Date Notes Amoxicillin-Pot Clavulanate 875-125 MG 1 tablet with food Orally Twice a day for 7 days 05/19/2024
--- OUTSIDE RECORDS SUMMARY | 2024-08-05 13:01 | XMS_ITS ---
Author Organization [facility] Address [address] [place] [address] Care Team Providers Care Mining Engineering Technologist Name Role Phone Chad (RETIRED) Brenton JACKSON Primary Care Provid er Unavailable Wallace Diana Jr Unavailable [phone] REASON FOR VISIT screening Encounters Encounter Location Date Provider Diagnosis [facility] [place] [address] [place], [place] [phone] 06/09/2024 Wallace Diana Jr PLAN OF TREATMENT No Information
--- OUTSIDE RECORDS SUMMARY | 2024-08-05 13:01 | XMS_ITS ---
Author Organization Brenton Bonilla DO, FACP Address [address] [place], [place] [phone] Care Team Providers Care Dental Equipment Installer And Servicer Name Role Phone Brenton Bonilla Primary Care [...] Location Date Provider Diagnosis Brenton Bonilla DO, [address] [phone] 05/11/2024 Brenton Bonilla Morbid (severe) obes ity [...] Up: 6 Months, Reason: follow up visit Progress Notes * Examination Category Sub-Category Detail [...] treatment, Patient verbally consented to billing insurance Phase Eight, Patient informed of any privacy concerns related [...] you had any falls with injury in e past year?: No Fall Risk Assessment:: One fall without injury in the past year Communication Needs [facility] Communication Needs - [facility] [place] aring Impairment?: No Vision Impairment?: Yes wears glasses [...]
--- OUTSIDE RECORDS SUMMARY | 2024-08-05 13:02 | XMS_ITS | Patient Health Record ---
Author Organization [facility] Address [address] [place] [address] Care Team Providers Care Spout Tender Name Role Phone Chad (RETIRED) Brenton JACKSON Primary Care Provid er Unavailable Wallace Diana Jr Unavailable ALLERGIES Allergen (clinical drug ingredient) Drug/Non Drug Allergy documented on EMR Reaction Allergy Type Onset Date Status morphine Morphine Sulfate Unknown Drug Allergy Active codeine Codeine Sulfate Unknown Drug Allergy A ctive RESULTS Component Value Reference Range Notes Pathology Reviewed date:08/05/2024 08:12:04 AM Interpretation: Performing Lab:[facility], [address] [place] [id number] Notes/Report: REASON FOR REFERRAL No Information MEDICATIONS Medication [...] Problem Colon cancer screening (Z12.11) Active confirmed 488197315 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) use of non-steroidal anti-inflammatorie s (NSAID) (Z79.1) Active confirmed 723993137 Problem Long-term current use of high risk medication other than anticoagulant (Z79.899) Active confirmed 747858406 VITAL SIGNS Temperature 97.8 degrees Fahrenheit 05/18/2024 Blood pressure diastolic 00 mm Hg 05/18/2024 Height 66 in 05/18/2024 Blood pressure systolic 000 mm Hg 05/18/2024 Weight 223 lb 1 oz lbs 05/18/2024 BMI 36.00 kg/m2 05/18/2024 Encounters Encounter Location Date Provider Diagnosis [facility] [address] [place] [phone] 06/09/2024 Wallace Diana Jr [facility] [address] [place] [phone] 07/28/2024 Wallace Diana Jr Colon cancer screening Z12.11 ; Personal history of colonic polyps Z86.0100 and Colon polyps K63.5 [facility] [address] [place] [address] 05/18/2024 Wallace Diana Jr Colon cancer screening Z12.11 and Long-term current use of high risk medication other than anticoagulant Z79.899 [facility] [address] [place] [address] 06/08/2024 Wallace Diana Jr [facility] [address] [place] [address] 08/05/2024 Wallace Diana Jr ASSESSMENTS Encounter Date Diagnosis Assessment Notes Treatment Notes Treatment Clinical Notes 07/28/2024 Colon cancer screening (ICD-10 - Z12.11) 07/28/2024 Personal history of colonic polyps (ICD-10 - Z86.0100) 05/18/2024 Colon cancer screening (ICD-10 - Z12.11) 05/18/2024 Long-term current use of high risk medication other than anticoagulant (ICD-10 - Z79.899) 07/28/2024 Colon polyps (ICD-10 - K63.5) 05/18/2024 Other Colonoscopy material was printed PLAN OF TREATMENT Future Test Test Name Order Date COLONOSCOPY 04/22/2019 COLONOSCOPY 05/18/2024 Insurance Providers Payer Name Payer Address Payer Phone Subscriber Number Group Number Insured Name Patient Relationship to Insured Coverage Start Date Coverage End Date MEDICARE OF [place] [address] [place] [address] [id number] ALYSA VELARDE Self - patient is the insured [employer] ([employer]) [address] [place] [address] [id number] ALYSA VELARDE Self - patient is the insured MEDICAL (GENERAL) HISTORY Medical History History ICD Code KANIKA/CPAP Hypothyroidism Hyperlipidemia Postnasal drip Rosacea Elevated BMI Colonoscopy 06/25, tubular adenoma, five -year followup Surgical History Surgery Date(Month/Year) lap band/removed 4061-4830 back surgery, L 2-3 decompression 2014 umbilical hernia repair bartholin cyst removed torn meniscus left knee right hip replacement 10/26/2022
--- OUTSIDE RECORDS SUMMARY | 2024-08-05 13:02 | XMS_ITS ---
Author Organization [facility] Address [address] [place] [address] Care Team Providers Care Torpedo Worker Name Role Phone Chad (RETIRED) Brenton JACKSON Primary Care Provid er Unavailable Wallace Diana Jr Unavailable REASON FOR VISIT pathology Encounters Encounter Location Date Provider Diagnosis [facility] [address] [place] [address] 08/05/2024 Wallace Diana Jr PLAN OF TREATMENT No Information
--- OUTSIDE RECORDS SUMMARY | 2024-08-05 13:02 | XMS_ITS ---
Author Organization Brenton Bonilla DO, FACP Address [address] [place], [place] [phone] Care Team Providers Care Appliance Installer Name Role Phone Chad Brenton Primary Care Provider REASON FOR VISIT Refill MEDICATIONS Medication SIG (Take, Route, Fr equency, Duration) Notes Start Date End Date Status Meloxicam 15 MG 1 tablet Orally Once a day for 90 days Active Encounters Encounter Location Date Provider Diagnosis Brenton Bonilla DO FACP [address] [place] [phone] 05/15/2024 Brenton Bonilla PLAN OF TREATMENT Medication Medication Name Sig Start Date Stop Date Notes Meloxicam 15 MG 1 tablet Orally Once a day for 90 days
--- OUTSIDE RECORDS SUMMARY | 2024-08-05 13:02 | XMS_ITS | Patient Health Record ---
Author Organization [facility] Address [address] [place] [address] Care Team Providers Care Equal Employment Opportunity Officer Name Role Phone Brenton Bonilla MD Primary Care Provider Unavail able Black, Sejal Unavailable [phone] Allergies Allergen (clinical drug ingredient) Drug/Non Drug [...] W/U Status Risk Notes Problem Plantar wart (24797402) Plantar wart (B07.0) Active confirmed Problem Acquired hammer toe of right foot (4339918637288995 ) Other hammer toe(s) (acquired), right foot (M20.41) Active confirmed Problem Mononeuropathy of lower limb (118782565) Neuritis of left foot (G57.92) Active confirmed Problem 828184071 Hammertoe of right foot (M20.41) Active confirmed Problem Ulcer of toe of right foot (disorder) (8125788671454464 1) Skin ulcer of toe of right foot, limited to breakdown of skin (L97.511) Active confirmed Response to treatment,No napplicable Problem Localized, primary osteoarthritis of the ankle and/or foot (145427946) Arthritis of joint of lesser toe, right (M19.071) Active confirmed Problem Ulcer of toe of left foot (disorder) (5541275393032646 2) Skin ulcer of toe of left foot, limited to breakdown of skin (L97.521) Active confirmed Response to treatment Vital Signs Height 5ft 4in in 04/27/2024 Weight 221 lbs 04/27/2024 BMI 37.93 kg/m2 04/27/2024 Procedures Procedure Date Ordered Date Performed Result Body Sit e 38984-Mrzo Destruction, 1-14 04/13/2024 N/A 62578-Yfwhvfxw Plate 04/13/2024 N/A 44801- Debride <25 sq cm 04/27/2024 N/A Encounters Encounter Location Date Provider Diagnosis [facility] [place] [address] [place] [address] 03/16/2024 Sejal Black Pain in right toe(s) [...] M77.42 and Hammertoe of right foot M20.[address] [facility] [address] [address] 04/13/2024 Sejal Black Ingrown nail L60.0 ; Pain in left foot M79.672 ; Neuritis of left foot G57.92 ; Right foot pain M79.671 ; Plantar wart B07.0 and Left foot pain M79.672 [facility] [address] [address] 04/27/2024 Sejal Black Skin ulcer of toe [...] Treatment Pending Test Test Name Order Date 84468-Iznu Destruction, 1-14 04/13/2024 14743-Kxziwbam Plate 04/13/2024 11260- Debride <25 sq cm 04/27/2024 Insurance Providers Payer Name Payer Address Payer Phone Subscriber Number Group Number Insured Name Patient Relationship to Insured Coverage Start Date Coverage End Date Medicare National [employer]t [employer] [address] [facility] [place] [address] [id number] Meredith Casey Self - patient is the insured [employer]) [address] [place] [address] [id number] Meredith Casey Self - patient is [...]
== END 2024-08-05 11:33 | disposition home or self-care (01) ==
PROVIDERS: PCP Internal Medicine; Visit Provider Internal Medicine
DX: E66.9 Obesity, unspecified (principal); G47.33 Obstructive sleep apnea (adult) (pediatric)
CPT/HCPCS: 99213

== ENCOUNTER → 2024-08-05 10:52 | Outpatient (BNVA) | payer MEDICARE, OTHER, SELFPAY | PROVIDERS: PCP Internal Medicine; Visit Provider Internal Medicine | DX: G47.33 Obstructive sleep apnea (adult) (pediatric) (principal); E66.9 Obesity, unspecified; Z68.35 Body mass index [BMI] 35.0-35.9, adult | CPT/HCPCS: 99212 ==

== ENCOUNTER 2024-08-06 08:58 | Day surgery (SDC) | payer MEDICARE, OTHER, SELFPAY ==
--- OUTSIDE RECORDS SUMMARY | 2024-06-24 11:21 | XMS_ITS ---
Author Organization [facility] Address [address] [place] [address] Care Team Providers Care Inspector Brake Lining Name Role Phone Brenton Bonilla DO Primary Care Provider Unavail able Wallace Diana Jr Unavailable [phone] REASON FOR VISIT screening Encounters Encounter Location Date Provider Diagnosis [facility] Outpatient [address] [place], [place] [phone] 06/09/2024 Wallace Diana Jr PLAN OF TREATMENT No Information
--- OUTSIDE RECORDS SUMMARY | 2024-06-24 11:22 | XMS_ITS ---
Author Organization [facility] Address [address] [facility] [address] Care Team Providers Care Blow Torch Burner Name Role Phone Brenton Bonilla MD Primary Care Provider Unavail able Black, Sejal Unavailable [phone] Allergies Allergen (clinical drug ingredient) Drug/Non Drug [...] Risk Notes Problem Mononeuropathy of lower limb (231850564) Neuritis of left foot (G57.92) Active confirmed Problem Plantar wart (90687015) Plantar wart (B07.0) Active confirmed Vital Signs Height 5ft 4.5in in 04/13/2024 Weight 221 lbs 04/13/2024 BMI 37.34 kg/m2 04/13/2024 Procedures Procedure Date Ordered Date Performed Result Body Sit e 78473-Nrlg Destruction, 1-14 04/13/2024 N/A 22767-Jjyvdvnr Plate 04/13/2024 N/A Encounters Encounter Location Date Provider Diagnosis [facility] [address] [address] 04/13/2024 Sejal Black Ingrown nail L60.0 ; [...] Treatment Pending Test Test Name Order Date 98019-Ouww Destruction, 1-14 04/13/2024 44046-Qdpzuikl Plate 04/13/2024 Next Appt Details Follow Up: 2 Weeks, Reason: Procedure Notes * Category Sub-Category Detail Notes Wart Treatment Procedure Verrucae were de brided to pin-point bleeding margins with sterile 15 surgical blade, silver nitrate chemocautery applied, recomm. immune-boosting meds such as zinc, recomm. follow up with topical chemosurgical agents, Pt defers any other forms of tx - 35070 Nail Avulsion Procedure A fine sterile e [...] Motrin was recommended for pain or discomfort (49794) , Pt DEFERS matricectomy Anesthesia 3cc of 1 percent Lid ocaine Plain local anesthesic utilizing aseptic technique Location Lateral nail border , T7 Progress Notes * Meredith CASEY CDOB:[birth year] (73 yo F)Acc No.[id number]:04/13/2024 Progress Note Patient:Meredith Sandoval Provider:?Sejal Ennis DPM :1950???Age:73 Y???Sex:Female D ate:04/13/2024 Address:[address] [place], [place] [phone] Pcp:Brenton Bonilla MD Subjective: * Chief Complaints: [...] tubal blockage lap band 04/01/19right hip replacement 10/20222151T8-X9 decompression and fusion with intrumentation 01/2015torn meniscus- [...] yes, golf. ?Marital status: single. 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 * Medications:?TakingMelatonin Aller-Chlor advil Vitamin B12 1000 [...] B07.0 (Primary)? Plan: * Treatment: 2.?Ingrown nail?Procedure: 55969-Kxeknnxt Plate * Procedures:?Nail Avulsion:?Location?Lateral nail border , [...] Motrin was recommended for pain or discomfort (37856) , Pt DEFERS matricectomy.?Wart Treatment:?Procedure?Verrucae were debrided to pin-point bleeding margins with sterile 15 surgical blade, silver nitrate chemocautery applied, recomm. immune-boosting meds such as zinc, recomm. follow up with topical chemosurgical agents, Pt defers any other forms of tx - 46726.? * Procedure Codes:?04042 Avuls ion Plate, Modifiers: T7 23016 Wart Destruction, 1- 14, Modifiers: XS * [...] Ennis DPM Date:?2023 Generated for Thien turner/Bandar/Darnell on:?06/24/2024 11:22 AM EST History and Physical Notes * HPI [...]
--- OUTSIDE RECORDS SUMMARY | 2024-06-24 11:22 | XMS_ITS ---
Author Organization [facility] Address [address] [place] [address] Care Team Providers Care Foam Fabricator Name Role Phone Brenton Bonilla DO Primary Care Provider Unavail Wallace Wolf Jr Unavailable ALLERGIES Allergen (clinical drug ingredient) Drug/Non Drug [...] medication other than anticoagulant (Z79.899) Active confirmed 004321042 VITAL SIGNS BMI 36.00 kg/m2 05/18/2024 Blood pressure systolic 000 mm Hg 05/18/20 24 Blood pressure diastolic 00 mm Hg 024 Height 66 in 05/18/2024 Temperature 97.8 degrees Fahrenheit 05/18/20 24 Weight 223 lb 1 oz lbs 05/18/2024 Encounters Encounter Location Date Provider Diagnosis [facility] [address] [facility] [address] [place] [address] 05/18/2024 Wallace Diana Jr Colon cancer screening [...] General Examination GENERAL APPEARANCE: in no ac kaw distress HEAD: normocephalic EYES: sclera non-icteric NECK/THYROID: no lymphadenopathy HEART: S1, S2 normal, no mu rmurs CHEST: normal shape and exp ansion LUNGS: clear to auscultatio n bilaterally ABDOMEN: soft, nontender, non distended, bowel sounds present, no organomegaly SKIN: anicteric EXTREMITIES: no clubbing, cyanosi s, or edema PSYCH: cognitive function i ntact ORAL CAVITY: mucosa moist
--- OUTSIDE RECORDS SUMMARY | 2024-06-24 11:22 | XMS_ITS ---
Author Organization [facility] Address [address] [place] [address] Care Team Providers Care Weight Clerk Name Role Phone Brenton Bonilla DO Primary Care Provider Unavail able Wallace Diana Jr Unavailable [phone] REASON FOR VISIT cancelled procedure Encounters Encounter Location Date Provider Diagnosis [facility] [address] [place] [address] 06/08/2024 Wallace Diana Jr PLAN OF TREATMENT No Information
--- OUTSIDE RECORDS SUMMARY | 2024-06-24 11:22 | XMS_ITS | Patient Health Record ---
Author Organization [facility] Address [address] [place] [address] Care Team Providers Care Reconstructive Dentist Name Role Phone Brenton Bonilla MD Primary Care Provider Unavail able Black, Sejal Unavailable [phone] Allergies Allergen (clinical drug ingredient) Drug/Non Drug [...] W/U Status Risk Notes Problem Plantar wart (21313028) Plantar wart (B07.0) Active confirmed Problem Acquired hammer toe of right foot (6835080918789995 ) Other hammer toe(s) (acquired), right foot (M20.41) Active confirmed Problem Mononeuropathy of lower limb (048288900) Neuritis of left foot (G57.92) Active confirmed Problem 180832982 Hammertoe of right foot (M20.41) Active confirmed Problem Ulcer of toe of right foot (disorder) (0042164591248896 1) Skin ulcer of toe of right foot, limited to breakdown of skin (L97.511) Active confirmed Response to treatment,No napplicable Problem Localized, primary osteoarthritis of the ankle and/or foot (215218487) Arthritis of joint of lesser toe, right (M19.071) Active confirmed Problem Ulcer of toe of left foot (disorder) (6970412287944911 2) Skin ulcer of toe of left foot, limited to breakdown of skin (L97.521) Active confirmed Response to treatment Vital Signs Height 5ft 4in in 04/27/2024 Weight 221 lbs 04/27/2024 BMI 37.93 kg/m2 04/27/2024 Procedures Procedure Date Ordered Date Performed Result Body Sit e 31154-Putf Destruction, 1-14 04/13/2024 N/A 52815-Fpulsnbj Plate 04/13/2024 N/A 38860- Debride <25 sq cm 04/27/2024 N/A Encounters Encounter Location Date Provider Diagnosis [facility] [place] [address] [place] [address] 03/16/2024 Sejal Black Pain in right toe(s) [...] M77.42 and Hammertoe of right foot M20.41 [facility] [address] [address] 04/13/2024 Sejal Black Ingrown nail L60.0 ; Pain in left foot M79.672 ; Neuritis of left foot G57.92 ; Right foot pain M79.671 ; Plantar wart B07.0 and Left foot pain M79.672 [facility] [address] [address] 04/27/2024 Sejal Black Skin ulcer of toe [...] Treatment Pending Test Test Name Order Date 29879-Qcdp Destruction, 1-14 04/13/2024 25172-Ucyxivlu Plate 04/13/2024 37378- Debride <25 sq cm 04/27/2024 Insurance Providers Payer Name Payer Address Payer Phone Subscriber Number Group Number Insured Name Patient Relationship to Insured Coverage Start Date Coverage End Date Medicare [employer] [address] [place] [address] [id number] Meredith Casey Self - patient is the insured [employer]) [address] [place] [address] [phone] [id number] Meredith Casey Self - patient is [...]
--- OUTSIDE RECORDS SUMMARY | 2024-06-24 11:22 | XMS_ITS ---
Author Organization Brenton Bonilla DO, FACP Address [address] [place] [id number] Care Team Providers Care Road Freight Conductor Name Role Phone ChadBrenton mcguire Primary Care Provider REASON FOR VISIT Refill MEDICATIONS Medication SIG (Take, Route, Fr equency, Duration) Notes Start Date End Date Status Meloxicam 15 MG 1 tablet Orally Once a day for 90 days Active Encounters Encounter Location Date Provider Diagnosis Brenton oBnilla DO FACP [address] [place] [phone] 05/15/2024 Brenton Bonilla PLAN OF TREATMENT Medication Medication Name Sig Start Date Stop Date Notes Meloxicam 15 MG 1 tablet Orally Once a day for 90 days Next Appt Details Provider Name:Brenton clark, 11/11/2024 11:00:00 AM, [address] [place] [address], [phone],
--- OUTSIDE RECORDS SUMMARY | 2024-06-24 11:22 | XMS_ITS ---
Author Organization [facility] Address [address] [facility] [place] [address] Care Team Providers Care Library Clerk Name Role Phone Brenton Bonilla MD Primary Care Provider Unavail able Black, Sejal Unavailable [phone] Allergies Allergen (clinical drug ingredient) Drug/Non Drug [...] Ulcer of toe of left foot (disorder) (9619629656 2831161) Skin ulcer of toe of left foot, limited to breakdown of skin (L97.521) Active confirmed Response to treatment Problem Ulcer of toe of right foot (disorder) (5426320010 7130336) Skin ulcer of toe of right foot, limited to breakdown of skin (L97.511) Active confirmed Response to treatment,Non applicable Vital Signs Height 5ft 4in in 04/27/2024 Weight 221 lbs 04/27/2024 BMI 37.93 kg/m2 04/27/2024 Procedures Procedure Date Ordered Date Performed Result Body Sit e 92171- Debride <25 sq cm 04/27/2024 N/A Encounters Encounter Location Date Provider Diagnosis [facility] [address] [place] [address] 04/27/2024 Sejal Black Skin ulcer of toe [...] INSTRUCTIONS.pdf) Pending Test Test Name Order Date 46349- Debride <25 sq cm 04/27/2024 Next Appt [...] of the wound post debridement is stable (38767) Progress Notes * Meredith CASEY CDOB:[birth year] (73 yo F)Acc No.[id number]:04/27/2024 Progress Notes Patient:?Meredith Casey Provider:?Sejal Ennis DPM :1950???Age:73 Y???Sex:Female D ate:04/27/2024 Address:[address] [place], [place] [phone] Pcp:Brenton Bonilla MD Subjective: * Chief Complaints: * ???Open sore - Toe * HPI: ???Skin problems:?Pt States PCP Visit: ?DATE?03/25/2024 ?Treatments:?, soaks , Topical abx.? * Medical History:? * Surgical History:?umbilical hernia repair tubal surgery secondary to tubal blockage lap band 04/01/19right hip replacement 10/20229692B3-O2 decompression and fusion with intrumentation 01/2015torn meniscus- [...] of the wound post debridement is stable (22993).? * Procedure Codes:?58796 ACTIV E WOUND CARE/20 CM OR < [...] Ennis DPM Date:?2023 Generated for Thien turner/Bandar/Rashmiitting on:?06/24/2024 11:21 AM EST History and Physical Notes * [...]
--- OUTSIDE RECORDS SUMMARY | 2024-06-24 11:22 | XMS_ITS ---
Author Organization Brenton Bonilla DO, FACP Address [address] [place], [place] [phone] Care Team Providers Care Scooping Machine Tender Name Role Phone ChadBrenton mcguire Primary Care Provider REASON FOR VISIT Message MEDICATIONS Medication SIG (Take, Route, Frequency, Duration) Notes Start Date End Date Status Amoxicillin-Pot Clavulanate 875-125 MG 1 tablet with food Orally Twice a day for 7 days 05/19/2024 Active Encounters Encounter Location Date Provider Diagnosis CRYSTAL Lange DOP [address] [place], [place] [phone] 05/19/2024 Brenton Bonilla PLAN OF TREATMENT Medication Medication Name Sig Start Date Stop Date Notes Amoxicillin-Pot Clavulanate 875-125 MG 1 tablet with food Orally Twice a day for 7 days 05/19/2024 Next Appt Details Provider Name:Brenton clark, 11/11/2024 11:00:00 AM, [address] [place], [place], [phone],
--- OUTSIDE RECORDS SUMMARY | 2024-06-24 11:22 | XMS_ITS ---
Author Organization [facility] ashli [place] Address [address] [facility] [address] Care Team Providers Care Immunology Specialist Name Role Phone Brenton Bonilla MD Primary Care Provider Unavail able Black, Sejal Unavailable [phone] Allergies Allergen (clinical drug ingredient) Drug/Non Drug [...] Problem Acquired hammer toe of right foot (7764544574955662) Other hammer toe(s) (acquired), right foot (M20.41) Active confirmed Problem Localized, primary osteoarthritis of the ankle and/or foot (266505554) Arthritis of joint of lesser toe, right (M19.071) Active confirmed Problem 425420610 Hammertoe of right foot (M20.41) Active confirmed Vital Signs Height 5 ft 4.5 in in 03/16/2024 Weight 225 lbs lbs 03/16/2024 BMI 38.02 kg/m2 03/16/2024 Encounters Encounter Location Date Provider Diagnosis [facility] [address] [address] 03/16/2024 Sejal Black Pain in right toe(s) [...] Meredith CASEY CDOB:[birth year] (73 yo F)Acc No.[id number]:03/16/2024 Progress Notes Patient:?Meredith Casey Provider:?Sejal Ennis DPM :1950???Age:73 Y???Sex:Female D ate:03/16/2024 Address:[address] [place], [place] [phone] Pcp:Brenton Bonilla MD Subjective: * Chief Complaints: [...] tubal blockage lap band 04/01/19right hip replacement 10/20220768I8-W3 decompression and fusion with intrumentation 01/2015torn meniscus- [...] yes, golf. ?Marital status: single. 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 * Medications:?TakingMelatonin Aller-Chlor advil Vitamin B12 1000 [...] person, place, and t lexy Vascular DP PULSES (B): 3/4, B/L PT PULSES (B): 3/4, B/L CAPILLARY FILL TIME: immediate, all digi ts, B/L TEMPERTURE GRADIENT (C): normal, warm to cool, proximal to distal, B/L, B/L TROPHIC CONDITION-TEXTURE/ELASTICITY/TURGOR/HAIR GROWTH (B): normal, B/L PIGMENTATION: normal, B/L
--- OUTSIDE RECORDS SUMMARY | 2024-06-24 11:22 | XMS_ITS | Patient Health Record ---
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) use of non-steroidal anti-inflammatorie s (NSAID) (Z79.1) Active confirmed 403678928 Problem Long-term current use of high risk medication other than anticoagulant (Z79.899) Active confirmed 198474131 VITAL SIGNS Temperature 97.8 degrees Fahrenheit 05/18/2024 Blood pressure diastolic 00 mm Hg 05/18/2024 Height 66 in 05/18/2024 Blood pressure systolic 000 mm Hg 05/18/2024 Weight 223 lb 1 oz lbs 05/18/2024 BMI 36.00 kg/m2 05/18/2024 Encounters Encounter Location Date Provider Diagnosis [facility] [address] [place] [phone] 06/09/2024 Wallace Diana Jr [facility] [address] [place] [phone] 05/18/2024 Wallace Diana Jr Colon cancer screening Z12.11 and Long-term current use of high risk medication other than anticoagulant Z79.899 [facility] [address] [place] [phone] 06/08/2024 Wallace Diana Jr ASSESSMENTS Encounter Date [...] OF [place] [address] [place] [address] [id number] ALYSA VELARDE Self - patient is the insured [employer] ([employer]) [address] [place] [address] [id number] ALYSA VELARDE Self - patient is the insured MEDICAL (GENERAL) HISTORY Medical History History ICD Code KANIKA/CPAP Hypothyroidism Hyperlipidemia Postnasal drip Rosacea Elevated BMI Colonoscopy 06/25, tubular adenoma, five -year followup Surgical History Surgery Date(Month/Year) lap band/removed 4423-5404 back surgery, L 2-3 decompression 2014 umbilical hernia repair bartholin cyst removed torn meniscus left knee right hip replacement 10/26/2022
--- OUTSIDE RECORDS SUMMARY | 2024-06-24 11:23 | XMS_ITS ---
Author Organization Brenton Bonilla DO, FACP Address [address] [place], [place] [phone] Care Team Providers Care Compounder Helper Name Role Phone Brenton Bonilla Primary Care [...] Location Date Provider Diagnosis Brenton Bonilla DO, [address] [phone] 05/11/2024 Brenton Bonilla Morbid (severe) obes ity [...] visit Provider Name:Brenton clark, 11/11/2024 11:00:00 AM, [address] [place] [address], [phone], Progress Notes * Examination Category Sub-Category Detail [...]
--- OUTSIDE RECORDS SUMMARY | 2024-06-24 11:23 | XMS_ITS | Patient Health Record ---
Author Organization Brenton Bonilla DO, FACP Address [address] [place], [place] [phone] Care Team Providers Care Front Desk Clerk Name Role Phone Brenton Bonilla Primary Care Provider ALLERGIES Allergen (clinical drug ingredient) Drug/Non Drug Allergy documented on EMR Reaction Allergy Type Onset Date Status Codeine Phosphate nausea Drug Allergy Active RESULTS Component Value Reference Range Notes MM tomosynthesis screening B I Reviewed date:04/03/2024 11:04:32 AM Interpretation:Negative Performing Lab: Notes/Report: [address] [place] [address] Mammography Report Signed Patient: Meredith Casey MR#: [id number] : 1950 Acct:[id number] Age/Sex: 73 / F ADM Date: 03/21/24 Loc: HO.MAMMO Attending Dr: Brenton Bonilla DO Ordering Physician: Brenton Bonilla DO Results: 1Negat karina Date of Service: 03/21/24 Follow Up: 1 Year From Orig ina Mammogram Procedure(s): MM tomosynthesis screening BI Accession Number(s): [id number] cc: Brenton Bonilla DO EXAMINATION: MM SCREENING [...] 04/03/24 0855 DD/ 1000 TD/TT: 03/21/24 1015 Chicken And Fish Butcher: REASON FOR REFERRAL Reason F/U Colonoscopy Diagnosis [...] due to excess calories (E66.01) Active confirmed 75187596437290 Problem Sleep apnea, unspecified (G47.30) Active confirmed Sleep a pnea (83881654) Problem Lumbago with sciatic a, right side (M54.41) Active confirmed 522798373 Problem Low back pain (M54.5) Active confirmed 625099149 Problem Acquired hypothyroidism (E03.9) Active confirmed 143797618 Problem Obstructive sleep apnea (G47.33) Active confirmed 71762760 Problem Rosacea (L71.9) Active confirmed 339441 004 Problem Hypercholesterolemia (E78.00) Active confirmed 57064435 Problem Tinnitus of both ear s (H93.13) Active confirmed 2379627110743 VITAL SIGNS Heart Rate 58 /min 05/11/2024 Temperature 97.4 degrees Fahrenheit 05/11/2024 Respiratory Rate 15 /min 05/11/2024 Blood pressure diastolic 70 mm Hg 02/03/2024 Height 64.00 in 05/11/2024 Blood pressure systolic 132 mm Hg 02/03/2024 Weight 224 lbs 05/11/2024 BMI 38.45 kg/m2 05/11/2024 Encounters Encounter Location Date Provider Diagnosis Brenton Bonilla DO, [address] [id number] 07/19/2023 Brenton Bonilla Maik with sciatic a, right side M54.41 Brenton Bonilla DO, [address] [id number] 08/12/2023 Brenton Bonilla DO, [address] [id number] 08/19/2023 Brenton Bonilla DO, [address] [id number] 08/23/2023 Brenton Bonilla DO, [address] [id number] 09/02/2023 Brenton Bonilla DO, [address] [id number] 09/25/2023 Brenton Bonilla DO, [address] [id number] 10/15/2023 Brenton Bonilla DO, [address] [id number] 10/25/2023 Brenton Bonilla DO, [address] [id number] 11/26/2023 Brneton Bonilla DO, [address] [id number] 12/20/2023 Brenton Bonilla DO, [address] [id number] 02/03/2024 Brenton Bonilla DO, [address] [id number] 03/24/2024 Brenton Bonilla DO, [address] [id number] 04/21/2024 Brenton Bonilla Hypercholesterolemia E78.00 and Acquired hypothyroidism E03.9 Brenton Bonilla DO, [address] [id number] 04/21/2024 Brenton Bonilla Morbid (severe) obes ity due to excess calories E66.01 Brenton Bonilla DO, [address] [id number] 05/01/2024 Brenton Bonilla Morbid (severe) obes ity due to excess calories E66.01 Brenton Bonilla DO, [address] [id number] 05/01/2024 Brenton Bonilla Morbid (severe) obes ity due to excess calories E66.01 Brenton Bonilla DO, [address] [id number] 05/15/2024 Brenton Bonilla DO, [address] [id number] 05/19/2024 Brenton Bonilla DO, [address] [id number] 10/04/2023 Brenton Bonilla Hypercholesterolemia E78.00 ; Acquired hypothyroidism E03.9 ; Morbid (severe) obesity due to excess calories E66.01 ; Obstructive sleep apnea G47.33 ; Lumbago with sciatica, right side M54.41 and Tubular adenoma of colon D12.6 Brenton Bonilla DO, [address] [id number] 02/10/2024 Brenton Bonilla Morbid (severe) obes ity due to excess calories E66.01 ; Hypercholesterolemia E78.00 ; Acquired hypothyroidism E03.9 and Lumbago with sciatica, right side M54.41 Brenton Bonilla DO, [address] [id number] 05/11/2024 Brenton Bonilla Morbid (severe) obes ity [...] Details Provider Name:Brenton clark, 11/11/2024 11:00:00 AM, [address] [place] [address], [place], [place], [phone], Insurance Providers Payer Name Payer Address Payer Phone Subscriber Number Group Number Insured Name Patient Relationship to Insured Coverage Start Date Coverage End Date MEDICARE [address] [place] [phone] [id number] Meredith Casey Self - patient is the insured [facility] [address] [place] [address] [id number] Meredith Casey Self - patient is [...]
[2024-08-04 07:29] VITALS: BMI 37.2
--- NOTE | 2024-08-05 09:50 | P.CONAN_ITS ---
Documented by User: Johanne Rooney NP 08/05/24 09:51 HPI - Anesthesia Eval Consult details Narrative: 74yo F for Right SI joint fusion s/p colo 07/28/24 with MAC Anesthesia Pre-Procedure Meds Is the patient on any of the following meds?: GLP1/DPP4 PMFSH Active Problems Active Problems: All Active Problems Sacroiliitis, not elsewhere classified (Acute) KANIKA on CPAP (Acute) Obesity (BMI 30-39.9) (Acute) Past Medical History Medical History KANIKA on CPAP Obesity (BMI 30-39.9) Urinary urgency Rosacea Hypothyroidism Hypercholesteremia Family History Family history of problems with anesthesia: No Surgical History Surgical History History of right hip replacement (10/26/22) Hx of umbilical hernia repair History of removal of laparoscopic gastric banding device (~2018) Hx of laparoscopic gastric banding (~2009) H/O Spinal surgery (~2014) History of Problems with Anesthesia: No Social History Social History Patient Tobacco Use Status: Former Tobacco user Use of substances other than those prescribed or required for medical reasons: Yes Substance Use Type Other:: edible occasionally--last used 4 days ago Substance Use Frequency: Occasionally Are you DNR?: No Advance Directives: No Advance Directives Information Provided: Yes Current occupational status: retired 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 Meds Allergies Allergy/AdvReac Type Severity Reaction Status Date / Time codeine [CODEINE] Allergy Intermediate HALLUCINATI Verified 08/06/24 09:21 ON morphine [MORPHINE] Allergy Intermediate NAUSEA & Verified 08/06/24 09:21 VOMITING, HALLUCINATIONS, nausea and vomiting Codeine Phosphate Allergy Unknown nausea and Uncoded 08/05/24 11:51 vomiting Home Medications ?Medication ?Instructions ?Recorded ?Confirmed ?Last Taken ?Type atorvastatin 20 mg tablet 20 mg PO BEDTIME 02/01/21 08/06/24 Unknown History mirabegron 25 mg tablet,extended 50 mg PO DAILY 02/01/21 08/06/24 Unknown History release 24 hr (Myrbetriq) cyclobenzaprine 10 mg tablet 10 mg PO TID PRN Muscle Spasm 01/02/24 08/06/24 Unknown History magnesium aspart,citrate,oxide 400 mg PO .bid 01/02/24 08/06/24 Unknown History meloxicam 7.5 mg tablet 15 mg PO DAILY PRN Pain 01/02/24 08/06/24 07/28/24 History tizanidine 4 mg capsule 4 mg PO BID PRN Pain 01/02/24 08/06/24 Unknown History vitamin B complex 1 cap PO DAILY 01/02/24 08/06/24 Unknown History cholecalciferol (vitamin D3) 25 25 mcg PO DAILY 06/03/24 08/06/24 Unknown Histor y mcg (1,000 unit) capsule (Vitamin D3) cyanocobalamin (vitamin B-12) 100 100 mcg PO DAILY 06/03/24 08/06/24 Unknown History mcg tablet (Vitamin B-12) diphenhydramine HCl 25 mg capsule 25 mg PO BEDTIME PRN Insomnia 06/03/24 08/06/24 Unknown History (Sleep Aid (diphenhydramine)) ibuprofen 200 mg tablet (Advil) 200 mg PO Q8H PRN Pain 06/03/24 08/06/24 07/14/24 History levothyroxine 50 mcg tablet 50 mcg PO DAILY 06/03/24 08/06/24 08/06/24 08:00 History (Synthroid) melatonin 3 mg capsule 3 mg PO BEDTIME PRN Insomnia 06/03/24 08/06/24 Unknown History multivitamin 1 tab PO DAILY 06/03/24 08/06/24 Unknown History Exam Height,Weight and Vital Signs: Height 5 ft 4.5 in Weight 99.79 kg Assessment and Plan Assessment Anesthesia Assessment: Chart Reviewed Final Anesthetic Review Family History of Problems with Anesthesia: No History of Problems with Anesthesia: No Documented by User: Tanvi Bassett MD 08/06/24 09:55 [facility] Past Medical History Medical History KANIKA on CPAP Obesity (BMI 30-39.9) Urinary urgency Rosacea Hypothyroidism Hypercholesteremia Surgical History Surgical History History of right hip replacement (10/26/22) Hx of umbilical hernia repair History of removal of laparoscopic gastric banding device (~2018) Hx of laparoscopic gastric banding (~2009) H/O Spinal surgery (~2014) Social History Social History Patient Tobacco Use Status: Former Tobacco user Use of substances other than those prescribed or required for medical reasons: Yes Substance Use Type Other:: edible occasionally--last used 4 days ago Substance Use Frequency: Occasionally Are you DNR?: No Advance Directives: No Advance Directives Information Provided: Yes Current occupational status: retired 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 Meds Allergies Allergy/AdvReac Type Severity Reaction Status Date / Time codeine [CODEINE] Allergy Intermediate HALLUCINATI Verified 08/06/24 09:21 ON morphine [MORPHINE] Allergy Intermediate NAUSEA & Verified 08/06/24 09:21 VOMITING, HALLUCINATIONS, nausea and vomiting Codeine Phosphate Allergy Unknown nausea and Uncoded 08/05/24 11:51 vomiting Home Medications ?Medication ?Instructions ?Recorded ?Confirmed ?Last Taken ?Type atorvastatin 20 mg tablet 20 mg PO BEDTIME 02/01/21 08/06/24 Unknown History mirabegron 25 mg tablet,extended 50 mg PO DAILY 02/01/21 08/06/24 Unknown History release 24 hr (Myrbetriq) cyclobenzaprine 10 mg tablet 10 mg PO TID PRN Muscle Spasm 01/02/24 08/06/24 Unknown History magnesium aspart,citrate,oxide 400 mg PO .bid 01/02/24 08/06/24 Unknown History meloxicam 7.5 mg tablet 15 mg PO DAILY PRN Pain 01/02/24 08/06/24 07/28/24 History tizanidine 4 mg capsule 4 mg PO BID PRN Pain 01/02/24 08/06/24 Unknown History vitamin B complex 1 cap PO DAILY 01/02/24 08/06/24 Unknown History cholecalciferol (vitamin D3) 25 25 mcg PO DAILY 06/03/24 08/06/24 Unknown History mcg (1,000 unit) capsule (Vitamin D3) cyanocobalamin (vitamin B-12) 100 100 mcg PO DAILY 06/03/24 08/06/24 Unknown History mcg tablet (Vitamin B-12) diphenhydramine HCl 25 mg capsule 25 mg PO BEDTIME PRN Insomnia 06/03/24 08/06/24 Unknown History (Sleep Aid (diphenhydramine)) ibuprofen 200 mg tablet (Advil) 200 mg PO Q8H PRN Pain 06/03/24 08/06/24 07/14/24 History levothyroxine 50 mcg tablet 50 mcg PO DAILY 06/03/24 08/06/24 08/06/24 08:00 History (Synthroid) melatonin 3 mg capsule 3 mg PO BEDTIME PRN Insomnia 06/03/24 08/06/24 Unknown History multivitamin 1 tab PO DAILY 06/03/24 08/06/24 Unknown History Exam Airway Mallampati Class: III TM Dist: <=3cm Neck ROM: Full Heart: rrr Lungs: cta Assessment and Plan Assessment Anesthesia Assessment: Anesthesia Plan Discussed Final Anesthetic Review NPO: Yes ASA Class: III Final Preanesthetic Review: No Changes in Pt Med Stat, Meds/Allgs Chart Reviewed, Consent Obtained/Reviewed and Anes Risks/Benef Reviewed Patient Risk: Intermediate Procedure Risk: Intermediate Anesthetic Plan Anesthetic Plan: GA Disposition: Standard PACU
[2024-08-06] VITALS (9 sets, daily range): BP systolic 140–185; BP diastolic 47–69; PULSE 46–51; RESP 12–20; TEMP 36.1–36.7; O2SAT 97–100; BMI 37.3
--- NOTE | ~2024-08-06 | FL_ITS ---
EXAMINATION: FL GUIDANCE ONLY HISTORY: SI fusion COMPARISON: None available. TECHNIQUE: Fluoroscopy time: 1 minute, 8 seconds. Cumulative Dose: 63.006 mGy. DAP: 21.686 mGym2 Images: 2. FINDINGS: Images demonstrate a probe in the region of a sacroiliac joint. FL/FL guidance in OR IMPRESSION: Fluoroscopy during procedure. Please see procedure report for additional information. Electronically signed by: Brenton Mosqueda MD 08/06/2024 01:59 PM [facility]
--- NOTE | 2024-08-06 09:10 | MHC.SHP ---
Pre-Procedural Eval Section A - 24 Hr Update-Section A only Date of Service: 08/06/24 The patient is an INPATIENT: No Section B - Complete if H&P > 30 days Chief Complaint: Sacroiliitis, not elsewhere classified Details of Present Illness: Right SI joint fusion Allergies: Allergies Allergy/AdvReac Type Severity Reaction Status Date / Time codeine [CODEINE] Allergy Intermediate HALLUCINATI Verified 08/05/24 11:51 ON morphine [MORPHINE] Allergy Intermediate NAUSEA & Verified 08/05/24 11:51 VOMITING, HALLUCINATIONS, nausea and vomiting Codeine Phosphate Allergy Unknown nausea and Uncoded 08/05/24 11:51 vomiting Review of Systems Sugical H&P ROS: Negative: Constitution, Cardiovascular, Respiratory, Neurological, Psychiatric, Hem-Onc, Allergic/Immunologic, Gastrointestinal, Genitourinary, Musculoskeletal, Integumentary, Endocrine and Eyes/Ears/Nose/Throat Exam Surgical H&P Exam: Normal: HEENT, Normal: Heart, Normal: Lungs, Normal: Extremities, Normal: Abdomen and Normal: Skin and Significant Findings: Neurological (Pain over the right SI joint) Plan Diagnosis/Plan: Unchanged I have reviewed the history and physical and performed a pertinent physical examination on my patient. No changes have occurred unless specified. Right SI joint fusion Time Spent With Patient Time: Total time managing care of this patient today ___5_ minutes.
[2024-08-06] MEDS: methocarbamoL 750 MG TABLET PO (09:36)
[2024-08-06] MEDS: Gabapentin 300 MG CAPSULE PO (09:36)
[2024-08-06] MEDS: Lactated Ringers 1,000 ML 100 ML IVCONT (09:55)
--- OUTSIDE RECORDS SUMMARY | 2024-08-06 11:55 | XMS_ITS ---
Author Organization Brenton Bonilla DO, FACP Address [address] [place], [place] [phone] Care Team Providers Care Leaf Size Picker Name Role Phone Brenton Bonilla Primary Care Provider [phone] ALLERGIES Allergen (clinical drug ingredient) Drug/Non Drug [...] Location Date Provider Diagnosis Brenton Bonilla DO, [address] [phone] 05/11/2024 Brenton Bonilla Morbid (severe) obes ity [...] treatment, Patient verbally consented to billing insurance [employer], Patient informed of any privacy concerns related [...]
--- OUTSIDE RECORDS SUMMARY | 2024-08-06 11:55 | XMS_ITS ---
Author Organization [facility] Address [address] [place] [address] Care Team Providers Care Fishing Game Warden Name Role Phone Chad (RETIRED) Brenton JACKSON Primary Care Provid er Unavailable Wallace Diana Jr Unavailable [phone] REASON FOR VISIT screening Encounters Encounter Location Date Provider Diagnosis [facility] Out[place] [address] [place], [place] [phone] 06/09/2024 Wallace Diana Jr PLAN OF TREATMENT No Information
--- OUTSIDE RECORDS SUMMARY | 2024-08-06 11:55 | XMS_ITS ---
Author Organization [facility] [place] Address [address] [facility] [place] [address] Care Team Providers Care Textile Science Technician Name Role Phone Brenton Bonilla MD Primary Care Provider Unavail able Black, Sejal Unavailable [phone] Allergies Allergen (clinical drug ingredient) Drug/Non Drug [...] Problem Acquired hammer toe of right foot (4355908640554281) Other hammer toe(s) (acquired), right foot (M20.41) Active confirmed Problem Localized, primary osteoarthritis of the ankle and/or foot (793108808) Arthritis of joint of lesser toe, right (M19.071) Active confirmed Problem 933334011 Hammertoe of right foot (M20.41) Active confirmed Vital Signs Height 5 ft 4.5 in in 03/16/2024 Weight 225 lbs lbs 03/16/2024 BMI 38.02 kg/m2 03/16/2024 Encounters Encounter Location Date Provider Diagnosis [facility] [address] [address] 03/16/2024 Sejal Black Pain in right toe(s) [...] Meredith CASEY CDOB:[birth year] (73 yo F)Acc No.[id number]:03/16/2024 Progress Notes Patient:?Meredith Casey Provider:?Sejal Ennis DPM :1950???Age:73 Y???Sex:Female D ate:03/16/2024 Address:[address] [place], [place] [phone] Pcp:Brenton Bonilla MD Subjective: * Chief Complaints: [...] tubal blockage lap band 04/01/19right hip replacement 10/20222906E2-T5 decompression and fusion with intrumentation 01/2015torn meniscus- [...] yes, golf. ?Marital status: single. 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 * Medications:?TakingMelatonin Aller-Chlor advil Vitamin B12 1000 [...] Ennis DPM Date:?2023 Generated for Thien turner/Bandar/Darnell on:?08/06/2024 11:54 AM EST History and Physical Notes * [...]
--- OUTSIDE RECORDS SUMMARY | 2024-08-06 11:55 | XMS_ITS ---
Author Organization Brenton Bonilla DO, FACP Address [address] [place], [place] [phone] Care Team Providers Care Fibre Technologist Name Role Phone ChadBrenton Primary Care Provider [phone] REASON FOR VISIT Message MEDICATIONS Medication SIG (Take, Route, Frequency, Duration) Notes Start Date End Date Status Amoxicillin-Pot Clavulanate 875-125 MG 1 tablet with food Orally Twice a day for 7 days 05/19/2024 Active Encounters Encounter Location Date Provider Diagnosis [facility] [address] [place], [place] [phone] 05/19/2024 Brenton Bonilla PLAN OF TREATMENT Medication Medication Name Sig Start Date Stop Date Notes Amoxicillin-Pot Clavulanate 875-125 MG 1 tablet with food Orally Twice a day for 7 days 05/19/2024
--- OUTSIDE RECORDS SUMMARY | 2024-08-06 11:55 | XMS_ITS ---
Author Organization [facility] Address [address] [place] [address] Care Team Providers Care Writer Technical Publications Name Role Phone Chad (RETIRED) Brenton JACKSON Primary Care Provid er Unavailable Wallace Diana Jr Unavailable REASON FOR VISIT pathology/waiting on pt call back Encounters Encounter Location Date Provider Diagnosis [facility] [address] [place] [address] 08/05/2024 Wallace Diana Jr PLAN OF TREATMENT No Information
--- OUTSIDE RECORDS SUMMARY | 2024-08-06 11:55 | XMS_ITS ---
Author Organization [facility] Address [address] [facility] [place] [address] Care Team Providers Care Spring Forger Name Role Phone Brenton Bonilla MD Primary Care Provider Unavail able Black, Sejal Unavailable [phone] Allergies Allergen (clinical drug ingredient) Drug/Non Drug [...] Ulcer of toe of left foot (disorder) (0501817533 1923562) Skin ulcer of toe of left foot, limited to breakdown of skin (L97.521) Active confirmed Response to treatment Problem Ulcer of toe of right foot (disorder) (7145477434 9782573) Skin ulcer of toe of right foot, limited to breakdown of skin (L97.511) Active confirmed Response to treatment,Non applicable Vital Signs Height 5ft 4in in 04/27/2024 Weight 221 lbs 04/27/2024 BMI 37.93 kg/m2 04/27/2024 Procedures Procedure Date Ordered Date Performed Result Body Sit e 05518- Debride <25 sq cm 04/27/2024 N/A Encounters Encounter Location Date Provider Diagnosis [facility] [place] [address] [place] [address] 04/27/2024 Sejal Black Skin ulcer of toe [...] INSTRUCTIONS.pdf) Pending Test Test Name Order Date 27498- Debride <25 sq cm 04/27/2024 Next Appt [...] of the wound post debridement is stable (50509) Progress Notes * Meredith CASEY CDOB:[birth year] (73 yo F)Acc No.[id number]:04/27/2024 Progress Notes Patient:?Meredith Casey Provider:?Sejal Ennis DPM :1950???Age:73 Y???Sex:Female D ate:04/27/2024 Address:[address] [place], [place] [phone] Pcp:Brenton Bonilla MD Subjective: * Chief Complaints: * ???Open sore - Toe * HPI: ???Skin problems:?Pt States PCP Visit: ?DATE?03/25/2024 ?Treatments:?, soaks , Topical abx.? * Medical History:? * Surgical History:?umbilical hernia repair tubal surgery secondary to tubal blockage lap band 04/01/19right hip replacement 10/20221987H4-R4 decompression and fusion with intrumentation 01/2015torn meniscus- [...] of the wound post debridement is stable (93848).? * Procedure Codes:?56745 ACTIV E WOUND CARE/20 CM OR < [...] DPM Date:?2023 Generated for Thien turner/Bandar/Darnell on:?08/06/2024 11:55 AM EST History and Physical Notes * [...]
--- OUTSIDE RECORDS SUMMARY | 2024-08-06 11:55 | XMS_ITS ---
Author Organization Brenton Bonilla DO, FACP Address [address] [place], [place] [phone] Care Team Providers Care Curing Oven Attendant Name Role Phone Chad Brenton Primary Care Provider REASON FOR VISIT Refill MEDICATIONS Medication SIG (Take, Route, Fr equency, Duration) Notes Start Date End Date Status Meloxicam 15 MG 1 tablet Orally Once a day for 90 days Active Encounters Encounter Location Date Provider Diagnosis Brenton Bonilla DO FACP [address] [place] [phone] 05/15/2024 Brenton Bonilla PLAN OF TREATMENT Medication Medication Name Sig Start Date Stop Date Notes Meloxicam 15 MG 1 tablet Orally Once a day for 90 days
--- OUTSIDE RECORDS SUMMARY | 2024-08-06 11:55 | XMS_ITS ---
Author Organization [facility] Address [address] [place] [address] Care Team Providers Care Cookie Breaker Name Role Phone Chad (RETIRED) Brenton JACKSON Primary Care Provid er Unavailable Wallace Diana Jr Unavailable REASON FOR VISIT colon screening Encounters Encounter Location Date Provider Diagnosis [facility] Out[place] [address] [place] [phone] 07/28/2024 Wallace Diana Jr Colon cancer screening [...]
--- OUTSIDE RECORDS SUMMARY | 2024-08-06 11:55 | XMS_ITS ---
Author Organization [facility] Address [address] [place] [address] Care Team Providers Care Rn Rehab Name Role Phone Brenton Bonilla MD Primary Care Provider Unavail able Black, Sejal Unavailable [phone] Allergies Allergen (clinical drug ingredient) Drug/Non Drug [...] Risk Notes Problem Mononeuropathy of lower limb (774135329) Neuritis of left foot (G57.92) Active confirmed Problem Plantar wart (00704646) Plantar wart (B07.0) Active confirmed Vital Signs Height 5ft 4.5in in 04/13/2024 Weight 221 lbs 04/13/2024 BMI 37.34 kg/m2 04/13/2024 Procedures Procedure Date Ordered Date Performed Result Body Sit e 34916-Ucoh Destruction, 1-14 04/13/2024 N/A 07858-Ugbmeaub Plate 04/13/2024 N/A Encounters Encounter Location Date Provider Diagnosis [facility] [address] [address] 04/13/2024 Sejal Black Ingrown nail L60.0 ; [...] Treatment Pending Test Test Name Order Date 40410-Osvu Destruction, 1-14 04/13/2024 04490-Xghxpjwd Plate 04/13/2024 Next Appt Details Follow Up: 2 Weeks, Reason: Procedure Notes * Category Sub-Category Detail Notes Wart Treatment Procedure Verrucae were de brided to pin-point bleeding margins with sterile 15 surgical blade, silver nitrate chemocautery applied, recomm. immune-boosting meds such as zinc, recomm. follow up with topical chemosurgical agents, Pt defers any other forms of tx - 38651 Nail Avulsion Procedure A fine sterile e [...] Motrin was recommended for pain or discomfort (95559) , Pt DEFERS matricectomy Anesthesia 3cc of 1 percent Lid ocaine Plain local anesthesic utilizing aseptic technique Location Lateral nail border , T7 Progress Notes * Meredith CASEY CDOB:[birth year] (73 yo F)Acc No.[id number]:04/13/2024 Progress Note Patient:Meredith Sandoval Provider:?Sejal Ennis DPM :1950???Age:73 Y???Sex:Female D ate:04/13/2024 Address:[address] [place], [place] [phone] Pcp:Brenton Bonilla MD Subjective: * Chief Complaints: [...] tubal blockage lap band 04/01/19right hip replacement 10/20227095Y5-A2 decompression and fusion with intrumentation 01/2015torn meniscus- [...] yes, golf. ?Marital status: single. 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 * Medications:?TakingMelatonin Aller-Chlor advil Vitamin B12 [...] B07.0 (Primary)? Plan: * Treatment: 2.?Ingrown nail?Procedure: 01204-Lfpcychy Plate * Procedures:?Nail Avulsion:?Location?Lateral nail border , [...] Motrin was recommended for pain or discomfort (11091) , Pt DEFERS matricectomy.?Wart Treatment:?Procedure?Verrucae were debrided to pin-point bleeding margins with sterile 15 surgical blade, silver nitrate chemocautery applied, recomm. immune-boosting meds such as zinc, recomm. follow up with topical chemosurgical agents, Pt defers any other forms of tx - 67886.? * Procedure Codes:?68651 Avuls ion Plate, Modifiers: T7 52214 Wart Destruction, 1- 14, Modifiers: XS * [...]
--- OUTSIDE RECORDS SUMMARY | 2024-08-06 11:56 | XMS_ITS | Patient Health Record ---
Author Organization [facility] Address [address] [place] [address] Care Team Providers Care Pipe Fitter Marine Name Role Phone Chad (RETIRED) Brenton JACKSON Primary Care Provid er Unavailable Wallace Diana Jr Unavailable [phone] ALLERGIES Allergen (clinical drug ingredient) Drug/Non Drug Allergy documented on EMR Reaction Allergy Type Onset Date Status morphine Morphine Sulfate Unknown Drug Allergy Active codeine Codeine Sulfate Unknown Drug Allergy A ctive RESULTS Component Value Reference Range Notes Pathology Reviewed date:08/05/2024 08:12:04 AM Interpretation: Performing Lab:[facility], [address] [place] [id number] Notes/Report: REASON FOR REFERRAL No Information MEDICATIONS [...] Problem Colon cancer screening (Z12.11) Active confirmed 484448645 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) use of non-steroidal anti-inflammatorie s (NSAID) (Z79.1) Active confirmed 251030699 Problem Long-term current use of high risk medication other than anticoagulant (Z79.899) Active confirmed 930129963 VITAL SIGNS Temperature 97.8 degrees Fahrenheit 05/18/2024 Blood pressure diastolic 00 mm Hg 05/18/2024 Height 66 in 05/18/2024 Blood pressure systolic 000 mm Hg 05/18/2024 Weight 223 lb 1 oz lbs 05/18/2024 BMI 36.00 kg/m2 05/18/2024 Encounters Encounter Location Date Provider Diagnosis [facility] Outpatient [address] [place] [id number] 06/09/2024 Wallace Diana Jr [facility] Outpatient [address] [place] [id number] 07/28/2024 Wallace Diana Jr Colon cancer screening Z12.11 ; Personal history of colonic polyps Z86.0100 and Colon polyps K63.5 [facility] [address] [place] [address] 05/18/2024 Wallace Diana Jr Colon cancer screening Z12.11 and Long-term current use of high risk medication other than anticoagulant Z79.899 [facility] [address] [place] [address] 06/08/2024 Wallace Diana Jr [facility] [address] [place] [address] 08/05/2024 Wallace Diana Jr ASSESSMENTS Encounter Date [...] Date MEDICARE OF [place] [address] [place] [address] [id number] ALYSA VELARDE Self - patient is the insured [employer] ([employer]) [address] [place] [address] [id number] ALYSA VELARDE Self - patient is the insured MEDICAL (GENERAL) HISTORY Medical History History ICD Code KANIKA/CPAP Hypothyroidism Hyperlipidemia Postnasal drip Rosacea Elevated BMI Colonoscopy 06/25, tubular adenoma, five -year followup Surgical History Surgery Date(Month/Year) lap band/removed [phone] back surgery, L 2-3 decompression 2014 umbilical hernia repair bartholin cyst removed torn meniscus left knee right hip replacement 10/26/2022
--- OUTSIDE RECORDS SUMMARY | 2024-08-06 11:56 | XMS_ITS | Patient Health Record ---
Author Organization [facility] Address [address] [place] [address] Care Team Providers Care Dirt Contractor Name Role Phone Brenton Bonilla MD Primary Care Provider Unavail able Black, Sejal Unavailable [phone] Allergies Allergen (clinical drug ingredient) Drug/Non Drug [...] W/U Status Risk Notes Problem Plantar wart (21404026) Plantar wart (B07.0) Active confirmed Problem Acquired hammer toe of right foot (4976876222343183 ) Other hammer toe(s) (acquired), right foot (M20.41) Active confirmed Problem Mononeuropathy of lower limb (978468502) Neuritis of left foot (G57.92) Active confirmed Problem 115871101 Hammertoe of right foot (M20.41) Active confirmed Problem Ulcer of toe of right foot (disorder) (2613792394504041 1) Skin ulcer of toe of right foot, limited to breakdown of skin (L97.511) Active confirmed Response to treatment,No napplicable Problem Localized, primary osteoarthritis of the ankle and/or foot (723078870) Arthritis of joint of lesser toe, right (M19.071) Active confirmed Problem Ulcer of toe of left foot (disorder) (0639153661456167 2) Skin ulcer of toe of left foot, limited to breakdown of skin (L97.521) Active confirmed Response to treatment Vital Signs Height 5ft 4in in 04/27/2024 Weight 221 lbs 04/27/2024 BMI 37.93 kg/m2 04/27/2024 Procedures Procedure Date Ordered Date Performed Result Body Sit e 73600-Nkrm Destruction, 1-14 04/13/2024 N/A 26154-Hsxljexv Plate 04/13/2024 N/A 75097- Debride <25 sq cm 04/27/2024 N/A Encounters Encounter Location Date Provider Diagnosis [facility] [address] [address] [place] [address] 03/16/2024 Sejal Black Pain in right toe(s) [...] M77.42 and Hammertoe of right foot M20.[address] [facility] [address] [address] 04/13/2024 Sejal Black Ingrown nail L60.0 ; Pain in left foot M79.672 ; Neuritis of left foot G57.92 ; Right foot pain M79.671 ; Plantar wart B07.0 and Left foot pain M79.672 [facility] [address] [address] 04/27/2024 Sejal Black Skin ulcer of toe [...] Treatment Pending Test Test Name Order Date 55401-Kauz Destruction, 1-14 04/13/2024 59117-Ojovoltp Plate 04/13/2024 69266- Debride <25 sq cm 04/27/2024 Insurance Providers Payer Name Payer Address Payer Phone Subscriber Number Group Number Insured Name Patient Relationship to Insured Coverage Start Date Coverage End Date Medicare National [employer] [address] [place] [address] [id number] Meredith Casey Self - patient is the insured [employer]) [address] [place] [address] [id number] Meredith Casey Self - patient is [...]
--- NOTE | 2024-08-06 13:04 | P.DS_ITS ---
DS: Providers Provider Date of Service: 08/06/24 Date of discharge: 08/06/24 Primary care physician: Brenton Bonilla DO DS: Summary Time Attestation Discharge Coordination Time (in mins): 14 Quality: Safe Use of Opioids Does Pt have an Active Cancer Diagnosis on the Problem List?: No Quality: Stroke Does the patient have a stroke diagnosis?: No Physical Exam Vital Signs: Vital Signs: Last Vital Signs Temp 98.1 F 08/06/24 09:43 Pulse 51 08/06/24 09:43 Resp 16 08/06/24 09:43 BP 145/47 H 08/06/24 09:43 Pulse Ox 97 08/06/24 09:43 O2 Del Method Room Air 08/06/24 09:43 BMI result Body Mass Index 37.3 Discharge Plan Discharge Patient Disposition: Home, Self-Care Referrals: Brenton Bonilla DO [Primary Care Provider] - 1 Week Discharge Medications: New oxycodone 5 mg tablet 5 mg PO Q6H PRN (Reason: pain (scale score 7-10)) Qty: 30 0RF Rx Instructions: Partial Fill upon patient request. Continued Wegovy 2.4 mg/0.75 mL pen injector 2.4 mg SUBCUT .QTUESDAY Qty: 3 1RF multivitamin Tablet 1 tab PO DAILY cyanocobalamin (vitamin B-12) [Vitamin B-12] 100 mcg Tablet 100 mcg PO DAILY levothyroxine [Synthroid] 50 mcg Tablet 50 mcg PO DAILY diphenhydramine HCl [Sleep Aid (diphenhydramine)] 25 mg Capsule 25 mg PO BEDTIME PRN (Reason: Insomnia) cholecalciferol (vitamin D3) [Vitamin D3] 25 mcg (1,000 unit) Capsule 25 mcg PO DAILY melatonin 3 mg Capsule 3 mg PO BEDTIME PRN (Reason: Insomnia) atorvastatin 20 mg tablet 20 mg PO BEDTIME Myrbetriq 25 mg tablet extended release 24 hr 50 mg PO DAILY vitamin B complex Capsule 1 cap PO DAILY cyclobenzaprine 10 mg tablet 10 mg PO TID PRN (Reason: Muscle Spasm) tizanidine 4 mg capsule 4 mg PO BID PRN (Reason: Pain) magnesium aspart,citrate,oxide 400 mg magnesium capsule 400 mg PO .bid Held ibuprofen [Advil] 200 mg Tablet 200 mg PO Q8H PRN (Reason: Pain) Hold Instructions: Resume on 08/07/24. meloxicam 7.5 mg tablet 15 mg PO DAILY PRN (Reason: Pain) Hold Instructions: Resume on 08/07/24. Discharge Orders: Discharge Order (Routine); Ordered 08/06/24 Ordered By: Elijah Miller Diet: Advance to usual diet Activity on Discharge: As tolerated Activity Restrictions/Additional Instructions: After your spinal surgery we ask you to observe the following restrictions/guidelines: Activity: It is normal to feel some discomfort as you increase your activity, but that will improve with time. We ask you avoid heavy lifting or acitivities that cause pain. As a general rule, 8lbs is a safe limit for lifting right after surgery. Walk as much as you feel comfortable but not to exhaustion. You will feel extra tired the first few days after surgery. Stay well hydrated. It is OK to walk up and down stairs You may return to driving when you are off narcotics (such as vicodin, oxycodone, dilaudid, etc), and you are back to normal functional capacity. If you have any concerns please check with office before driving. Return to work is specific to each patient and each surgery, so please speak with your doctor/PA at first follow up. Please bring paperwork such as FMLA at that time if you need it filled out. Medications: For optimum pain control, it is best to start with a combination of 500 mg of Tylenol every 4 hours with 600 mg of Motrin every 8 hours, and use narcotics as needed in between for breakthrough pain. We will give you a short supply of narcotics after surgery (usually one weeks worth). If you need more please call the office but do not use more than prescribed. You will need to give our office 48 hours notice if you need narcotics refilled and we do not fill narcotics on weekends or evenings. If you are on a narcotic, it is a good idea to take a stool softener such as colace or senna to avoid constipation If you take blood thinner such as aspirin, Plavix, Coumadin, Effient, Eliquis etc for conditions such as Afib, DVT, Pulmonary embolus, coronary disease, stents etc please speak with your surgeon about specific details as to when you can resume these medications. You can resume NSAIDs on post op day 1 (eg: Motrin, Naproxen, etc). Follow up: Please call the office, , after surgery to arrange a 3 week follow up for wound check. Wound Care: You may remove your dressing on the first day after surgery. ?You may ?leave open to air. Please do not remove the steri strips underneath. they will fall off on their own in one week. IT IS NORMAL FOR THE WOUND TO OOZE OR BE BLOODY FOR A FEW DAYS AFTER SURGERY. ?IF THIS HAPPENS JUST PLACE NEW DRESSING OVER IT TO AVOID STAINING CLOTHES. You may shower on post op day # 1 We ask that you do not let the water soak the wound. If it does get wet, just towel dry lightly. Please do not scrub your incision or place any type of chemical/ointment on the wound. No tub baths, pools or jacuzzis for one month. If you have any leaking or redness from your wound, or fevers, please call office Print Language: Luxembourgish
[2024-08-06] MEDS: fentaNYL citrate/PF 100 MCG/2 ML VIAL 25 MCG IVPUSH ×2 (14:10→14:15)
--- NOTE | 2024-08-06 15:09 | P.OP_ITS ---
Operative Note Operative Note Date of Service: 08/06/24 Narrative: Preoperative diagnosis: Right sacroiliac joint dysfunction Postoperative diagnosis: Same Operative procedure: Right sacroiliac joint fusion with 1 allograft implant Surgeon: Pierre Evans MD, PhD Hydroelectric Systems Technician: Elijah Miller PA-C Anesthesia: General Description of procedure: The patient is suffering from right SI joint dysfunction refractory to nonoperative management. The patient has tried and failed all forms of conservative manage med except for an excellent short-term response to a sacroiliac joint injection. The sacroiliac joint was confirmed to be the pain generator after repeated pain blocks. The patient was offered surgical treatment with fixation and arthrodesis of the SI joint. The patient was brought to the operating room and endotracheally intubated. The patient was turned in a prone position on Geo spine table. Prepping and draping was done followed by a time-out. A C-arm was alternately positioned for lateral, oblique oblique and pelvic inlet and outlet projections througout the procedure. Skin markings were made for the anticipated position of the implant. A 2.5 cm longitudinal skin incision was made. A guide pin was inserted in an outlet oblique image for guidance follow-up insertion of dilator and working cannula. This was secured by placing an anchor pin into the ilium. The visualization of the landmarks was difficult due to patient obesity. Consideration was taken to cut channels utilizing a series of drills for decortication and internal fixation device placement. The implant was inserted such that it passed through the ilium, across the sacroiliac joint and into the sacrum, thus transfixing the sacroiliac joint. Proper positioning was confirmed on lateral fluoroscopy. The implant was packed with autologous bone collected from remain of the sacrum and ilium. Additional graft material was inserted into the channel void following the implant. The instruments were withdrawn. Upon completion, final images were obtained that showed a satisfactory position of the implant. Hemostasis was done. The incision was closed with an 0 Vicryl to fashion a 3-0 Vicryl subdermal layer after injecting Marcaine. Dermabond was used to approximate the surgeon. All sponge and needle counts were correct. Patient was extubated and transported in a stable condition to recovery room. Estimated blood loss: 20 mL Complications: None Disposition: Discharge to home
== END 2024-08-06 15:22 | disposition home or self-care (01) ==
PROVIDERS: PCP Internal Medicine; Visit Provider Neurological Surgery
PROC: (CPT 27279; principal; 2024-08-06 11:30)
DX: M46.1 Sacroiliitis, not elsewhere classified (principal); M53.3 Sacrococcygeal disorders, not elsewhere classified; M54.50 Low back pain, unspecified; E66.9 Obesity, unspecified; Z68.37 Body mass index [BMI] 37.0-37.9, adult; G47.33 Obstructive sleep apnea (adult) (pediatric); E03.9 Hypothyroidism, unspecified; Z79.1 Long term (current) use of non-steroidal anti-inflammatories (NSAID); Z79.899 Other long term (current) drug therapy; Z99.89 Dependence on other enabling machines and devices; Z88.5 Allergy status to narcotic agent; Z98.1 Arthrodesis status; Z96.641 Presence of right artificial hip joint; Z98.84 Bariatric surgery status; Z98.890 Other specified postprocedural states
CPT/HCPCS: 27279; C1713; J0131; J0690; J1100; J2003; J2405; J2704; J3010; L8699

== ENCOUNTER → 2024-08-06 08:58 | Outpatient (BNV) | payer MEDICARE, OTHER, SELFPAY | PROVIDERS: PCP Internal Medicine; Visit Provider Physician Assistant | DX: M46.1 Sacroiliitis, not elsewhere classified (principal) | CPT/HCPCS: 27279; 99499 ==

== ENCOUNTER 2024-08-27 11:28 | Outpatient (REF) | payer MEDICARE, OTHER, SELFPAY ==
--- OUTSIDE RECORDS SUMMARY | 2024-08-27 13:11 | XMS_ITS | Patient Health Record ---
Author Organization Brenton Bonilla DO, FACP Address [address] [place], [place] [address] Care Team Providers Care Blood Tester Fowl Name Role Phone Brenton Bonilla Primary Care Provider ALLERGIES Allergen (clinical drug ingredient) Drug/Non Drug Allergy documented on EMR Reaction Allergy Type Onset Date Status Codeine Phosphate nausea Drug Allergy Active RESULTS Component Value Reference Range Notes MM tomosynthesis screening B I Reviewed date:04/03/2024 11:04:32 AM Interpretation:Negative Performing Lab: Notes/Report: [address] 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 Referral Priority Routine Referral Appointment Date 01/02/2024 Reason Ingrown toenail Diagnosis 1 Ingrown toenail (L60 .0) Referral Organization Brenton Greer FACP Referring Provider First Name Brenton Referring Provider Last Name Chad Referring Provider Speciality Internal M edicine Referred Provider Sejal Ennis Referred Provider Specialty Podiatry General Notes Radha Hernandez 03:23:03 PM EDT > Referral faxed prior [...] Amoxicillin 500 MG 4 capsules Orally On a 03/08/2023 Active Mirabegron ER 50 MG 1 [...] due to excess calories (E66.01) Active confirmed 65672825703375 Problem Sleep apnea, unspecified (G47.30) Active confirmed Sleep a pnea (06131596) Problem Lumbago with sciatic a, right side (M54.41) Active confirmed 234827202 Problem Low back pain (M54.5) Active confirmed 567170354 Problem Acquired hypothyroidism (E03.9) Active confirmed 649779308 Problem Obstructive sleep apnea (G47.33) Active confirmed 59347453 Problem Rosacea (L71.9) Active confirmed 801090 004 Problem Hypercholesterolemia (E78.00) Active confirmed 01022587 Problem Tinnitus of both ear s (H93.13) Active confirmed 4679838130797 VITAL SIGNS Heart Rate 58 /min 05/11/2024 Temperature 97.4 degrees Fahrenheit 05/11/2024 Respiratory Rate 15 /min 05/11/2024 Blood pressure diastolic 70 mm Hg 02/03/2024 Height 64.00 in 05/11/2024 Blood pressure systolic 132 mm Hg 02/03/2024 Weight 224 lbs 05/11/2024 BMI 38.45 kg/m2 05/11/2024 Encounters Encounter Location Date Provider Diagnosis Brenton Bonilla DO, [address] [id number] 09/02/2023 Brenton Bonilla DO, [address] [id number] 09/25/2023 Brenton Bonilla DO, [address] [id number] 10/15/2023 Brenton Bonilla DO, [address] [id number] 10/25/2023 Brenton Bonilla DO, [address] [id number] 11/26/2023 Brenton Bonilla DO, [address] [id number] 12/20/2023 Brenton Bonilla DO, [address] [id number] 02/03/2024 Brenton Bonilla DO, [address] [id number] 03/24/2024 Brenton Bonilla DO, [address] [id number] 04/21/2024 Brenton Bonilla Hypercholesterolemia E78.00 and Acquired hypothyroidism E03.9 Brenton Bonilla DO, [address] [id number] 04/21/2024 Brenton Bonilla Morbid (severe) obes ity due to excess calories E66.01 Brenton Bonilla DO, [facility] [address] [place], [place] [id number] 05/01/2024 Brenton Bonilla Morbid (severe) obes ity due to excess calories E66.01 Brenton Bonilla DO, [address] [id number] 05/01/2024 Brenton Bonilla Morbid (severe) obes ity due to excess calories E66.01 Brenton Bonilla DO, [facility] [address] [place], [place] [id number] 05/15/2024 Brenton Bonilla DO, [address] [id number] 05/19/2024 Brenton Hanman Brenton Hanmaynor JACKSON, [facility] [address] [place], [place] [id number] 10/04/2023 Brenton Bonilla Hypercholesterolemia E78.00 ; Acquired hypothyroidism E03.9 ; Morbid (severe) obesity due to excess calories E66.01 ; Obstructive sleep apnea G47.33 ; Lumbago with sciatica, right side M54.41 and Tubular adenoma of colon D12.6 Brenton Bonilla DO, [facility] [address] [place], [place] [id number] 02/10/2024 Brenton Hanman Morbid (severe) obes ity due to excess calories E66.01 ; Hypercholesterolemia E78.00 ; Acquired hypothyroidism E03.9 and Lumbago with sciatica, right side M54.41 Brenton Bonilla DO, [facility] [address] [place], [place] [id number] 05/11/2024 Brenton Bonilla Morbid (severe) obes ity due to excess calories E66.01 ; Hypercholesterolemia E78.00 ; Acquired hypothyroidism E03.9 ; Obstructive sleep apnea G47.33 and Lumbago with sciatica, right side M54.41 ASSESSMENTS Encounter Date Diagnosis Assessment Notes Treatment Notes Treatment Clinical Notes 04/21/2024 Hypercholesterolemia (ICD-10 - E78.00) 04/21/2024 Morbid [...] FASTING 02/10/2024 VITAMIN D 25-OH TOTAL 02/10/2024 Insurance Providers Payer Name Payer Address Payer Phone Subscriber Number Group Number Insured Name Patient Relationship to Insured Coverage Start Date Coverage End Date MEDICARE [address] [place] [phone] [id number] Meredith Casey Self - patient is the insured [facility] [address] [place] [address] [phone] [id number] Meredith Casey Self - patient is [...]
== END 2024-08-27 11:29 | disposition home or self-care (01) ==
LOC: HO.HOSX 11:28
PROVIDERS: PCP Internal Medicine; Visit Provider Physician Assistant
DX: Z98.1 Arthrodesis status (principal)
CPT/HCPCS: 99212

== ENCOUNTER 2024-08-27 11:28 | Outpatient (AMB) | payer MEDICARE, OTHER, SELFPAY ==
--- NOTE | 2024-08-27 11:30 | HO.SPINEOV ---
Intake Visit Reasons: 1st post op Intake Note: Ms. Casey is here today for her 1st post op. Pharmacy Delivery Driver Required: No Allergies codeine [CODEINE] Allergy (Intermediate, Verified 08/27/24 11:30) HALLUCINATION morphine [MORPHINE] Allergy (Intermediate, Verified 08/27/24 11:30) NAUSEA & VOMITING, HALLUCINATIONS, nausea and vomiting Codeine Phosphate Allergy (Unknown, Uncoded 08/05/24 11:51) nausea and vomiting Assessment & Plan Assessment & Plan (1) S/P fusion of sacroiliac joint: Code(s): Z98.1 - Arthrodesis status Category: Medical Plan procedure: Right sacroiliac joint fusion Meredith comes in today for her 1st postoperative visit after having a right-sided SI joint fusion completed a few weeks ago. She reports that the bulk of her pain has resolved since the surgery. She no longer has shooting pains in her right hip. She does still have some low back pain, but feels it is manageable. We discussed the postoperative healing course and I answered all of her questions to the best of my ability. I believe the pain that she is having right now is likely secondary to the inflammation from surgery, and will resolve with the tincture of time. She has been ambulating around her home with the assistance of a cane, but is also able to ambulate independently. She is not currently taking any medications with the pain. No new neurological deficits. The patient ambulates well and rises from a seated position without difficulty. The posterior incision site is closed and well healing with no signs of swelling or drainage. I would like to see the patient again in 6 weeks and obtain a set of x-rays to review with her. Elijah Evans MD,PhD [facility] Orders: Orders XR sacroiliac joint 1-2V Today Z98.1 - Arthrodesis status Coding Level of Care Code Global (56090) Diagnoses S/P fusion of sacroiliac joint Z98.1
--- OUTSIDE RECORDS SUMMARY | 2024-08-27 12:48 | XMS_ITS ---
Author Organization [facility] Address [address] [facility] [place] [address] Care Team Providers Care Vending Technician Name Role Phone Brenton Bonilla MD Primary Care Provider Unavail able Black, Sejal Unavailable [phone] Allergies Allergen (clinical drug ingredient) Drug/Non Drug [...] Risk Notes Problem Mononeuropathy of lower limb (163414860) Neuritis of left foot (G57.92) Active confirmed Problem Plantar wart (04556943) Plantar wart (B07.0) Active confirmed Vital Signs Height 5ft 4.5in in 04/13/2024 Weight 221 lbs 04/13/2024 BMI 37.34 kg/m2 04/13/2024 Procedures Procedure Date Ordered Date Performed Result Body Sit e 76667-Pfda Destruction, 1-14 04/13/2024 N/A 69505-Yhhfawgw Plate 04/13/2024 N/A Encounters Encounter Location Date Provider Diagnosis [facility] [address] [address] 04/13/2024 Sejal Black Ingrown nail L60.0 ; [...] Treatment Pending Test Test Name Order Date 33322-Osoy Destruction, 1-14 04/13/2024 83422-Fzuxoviw Plate 04/13/2024 Next Appt Details Follow Up: 2 Weeks, Reason: Procedure Notes * Category Sub-Category Detail Notes Wart Treatment Procedure Verrucae were de brided to pin-point bleeding margins with sterile 15 surgical blade, silver nitrate chemocautery applied, recomm. immune-boosting meds such as zinc, recomm. follow up with topical chemosurgical agents, Pt defers any other forms of tx - 41707 Nail Avulsion Procedure A fine sterile e [...] Motrin was recommended for pain or discomfort (10448) , Pt DEFERS matricectomy Anesthesia 3cc of 1 percent Lid ocaine Plain local anesthesic utilizing aseptic technique Location Lateral nail border , T7 Progress Notes * Meredith CASEY CDOB:[birth year] (73 yo F)Acc No.[id number]:04/13/2024 Progress Note Patient:Meredith Sandoval Provider:?Sejal Ennis DPM :1950???Age:73 Y???Sex:Female D ate:04/13/2024 Address:[address] [place], [place] [phone] Pcp:Brenton Bonilla MD Subjective: * Chief Complaints: [...] tubal blockage lap band 04/01/19right hip replacement 10/20221950A5-B2 decompression and fusion with intrumentation 01/2015torn meniscus- [...] yes, golf. ?Marital status: single. 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 * Medications:?TakingMelatonin Aller-Chlor advil Vitamin B12 1000 [...] B07.0 (Primary)? Plan: * Treatment: 2.?Ingrown nail?Procedure: 46209-Epjnlyni Plate * Procedures:?Nail Avulsion:?Location?Lateral nail border , [...] Motrin was recommended for pain or discomfort (69855) , Pt DEFERS matricectomy.?Wart Treatment:?Procedure?Verrucae were debrided to pin-point bleeding margins with sterile 15 surgical blade, silver nitrate chemocautery applied, recomm. immune-boosting meds such as zinc, recomm. follow up with topical chemosurgical agents, Pt defers any other forms of tx - 72643.? * Procedure Codes:?69260 Avuls ion Plate, Modifiers: T7 26741 Wart Destruction, 1- 14, Modifiers: XS * [...] Ennis DPM Date:?2023 Generated for Thien turner/Bandar/Darnell on:?08/27/2024 12:48 PM EST History and Physical Notes * [...]
--- OUTSIDE RECORDS SUMMARY | 2024-08-27 12:48 | XMS_ITS ---
Author Organization Brenton Bonilla DO, FACP Address [address] [place], [place] [id number] Care Team Providers Care Cable Television Installer Name Role Phone Brenton Bonilla Primary Care Provider [phone] ALLERGIES Allergen (clinical drug ingredient) Drug/Non Drug [...] Location Date Provider Diagnosis Brenton Bonilla DO, [address] [phone] 05/11/2024 Brenton Bonilla Morbid (severe) obes ity [...] treatment, Patient verbally consented to billing insurance [employer], Patient informed of any privacy concerns related [...]
--- OUTSIDE RECORDS SUMMARY | 2024-08-27 12:48 | XMS_ITS ---
Author Organization [facility] Address [address] [place] [address] Care Team Providers Care Third Shift Lieutenant Name Role Phone Chad (RETIRED) Brenton JACKSON Primary Care Provid er Unavailable Wallace Diana Jr Unavailable [phone] REASON FOR VISIT colon screening Encounters Encounter Location Date Provider Diagnosis [facility] Outpatient [address] [place] [phone] 07/28/2024 Wallace Diana Jr Colon cancer screening [...]
--- OUTSIDE RECORDS SUMMARY | 2024-08-27 12:48 | XMS_ITS ---
Author Organization [facility] [place] Address [address] [facility] [place] [address] Care Team Providers Care Volumetric Weigher Name Role Phone Brenton Bonilla MD Primary Care Provider Unavail able Black, Sejal Unavailable [phone] Allergies Allergen (clinical drug ingredient) Drug/Non Drug [...] Problem Acquired hammer toe of right foot (5514130253921674) Other hammer toe(s) (acquired), right foot (M20.41) Active confirmed Problem Localized, primary osteoarthritis of the ankle and/or foot (726530368) Arthritis of joint of lesser toe, right (M19.071) Active confirmed Problem 747513087 Hammertoe of right foot (M20.41) Active confirmed Vital Signs Height 5 ft 4.5 in in 03/16/2024 Weight 225 lbs lbs 03/16/2024 BMI 38.02 kg/m2 03/16/2024 Encounters Encounter Location Date Provider Diagnosis [facility] [address] [address] 03/16/2024 Sejal Black Pain in right toe(s) [...] Meredith CASEY CDOB:[birth year] (73 yo F)Acc No.[id number]:03/16/2024 Progress Notes Patient:?Meredith Casey Provider:?Sejal Ennis DPM :1950???Age:73 Y???Sex:Female D ate:03/16/2024 Address:[address] [place], [place] [phone] Pcp:Brenton Bonilla MD Subjective: * Chief Complaints: [...] tubal blockage lap band 04/01/19right hip replacement 10/20229777I5-R0 decompression and fusion with intrumentation 01/2015torn meniscus- [...] yes, golf. ?Marital status: single. 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 * Medications:?TakingMelatonin Aller-Chlor advil Vitamin B12 1000 [...]
--- OUTSIDE RECORDS SUMMARY | 2024-08-27 12:48 | XMS_ITS ---
Author Organization Brenton Bonilla DO, FACP Address [address] [place], [place] [phone] Care Team Providers Care Branch General Manager Name Role Phone ChadBrenton Primary Care Provider REASON FOR VISIT Message MEDICATIONS Medication SIG (Take, Route, Frequency, Duration) Notes Start Date End Date Status Amoxicillin-Pot Clavulanate 875-125 MG 1 tablet with food Orally Twice a day for 7 days 05/19/2024 Active Encounters Encounter Location Date Provider Diagnosis [facility] [address] [place], [place] [phone] 05/19/2024 Brenton Bonilla PLAN OF TREATMENT Medication Medication Name Sig Start Date Stop Date Notes Amoxicillin-Pot Clavulanate 875-125 MG 1 tablet with food Orally Twice a day for 7 days 05/19/2024
--- OUTSIDE RECORDS SUMMARY | 2024-08-27 12:49 | XMS_ITS ---
Author Organization Brenton Bonilla DO, FACP Address [address] [place], [place] [phone] Care Team Providers Care Solution Spec Name Role Phone Chad Brenton Primary Care Provider [phone] REASON FOR VISIT Refill MEDICATIONS Medication SIG (Take, Route, Fr equency, Duration) Notes Start Date End Date Status Meloxicam 15 MG 1 tablet Orally Once a day for 90 days Active Encounters Encounter Location Date Provider Diagnosis Brenton Bonilla DO FACP [address] [place] [phone] 05/15/2024 Brenton Bonilla PLAN OF TREATMENT Medication Medication Name Sig Start Date Stop Date Notes Meloxicam 15 MG 1 tablet Orally Once a day for 90 days
--- OUTSIDE RECORDS SUMMARY | 2024-08-27 12:49 | XMS_ITS ---
Author Organization [facility] Address [address] [place] [address] Care Team Providers Care Automotive Porter Name Role Phone Chad (RETIRED) Brenton JACKSON Primary Care Provid er Unavailable Wallace Diana Jr Unavailable [phone] REASON FOR VISIT screening Encounters Encounter Location Date Provider Diagnosis [facility] Outpatient [address] [place], [place] [phone] 06/09/2024 Wallace Diana Jr PLAN OF TREATMENT No Information
--- OUTSIDE RECORDS SUMMARY | 2024-08-27 12:49 | XMS_ITS ---
Author Organization [facility] Address [address] [facility] [place] [address] Care Team Providers Care Route Driver Name Role Phone Brenton Bonilla MD Primary Care Provider Unavail able Black, Sejal Unavailable [phone] Allergies Allergen (clinical drug ingredient) Drug/Non Drug [...] Ulcer of toe of left foot (disorder) (5246303323 0411945) Skin ulcer of toe of left foot, limited to breakdown of skin (L97.521) Active confirmed Response to treatment Problem Ulcer of toe of right foot (disorder) (4412846028 4215967) Skin ulcer of toe of right foot, limited to breakdown of skin (L97.511) Active confirmed Response to treatment,Non applicable Vital Signs Height 5ft 4in in 04/27/2024 Weight 221 lbs 04/27/2024 BMI 37.93 kg/m2 04/27/2024 Procedures Procedure Date Ordered Date Performed Result Body Sit e 23315- Debride <25 sq cm 04/27/2024 N/A Encounters Encounter Location Date Provider Diagnosis [facility] [place] [address] [place] [address] 04/27/2024 Sejal Black Skin ulcer of toe [...] INSTRUCTIONS.pdf) Pending Test Test Name Order Date 40456- Debride <25 sq cm 04/27/2024 Next Appt [...] of the wound post debridement is stable (56812) Progress Notes * Meredith CASEY CDOB:[birth year] (73 yo F)Acc No.[id number]:04/27/2024 Progress Notes Patient:?Meredith Casey Provider:?Sejal Ennis DPM :1950???Age:73 Y???Sex:Female D ate:04/27/2024 Address:[address] [place], [place] [id number] Pcp:Brenton Bonilla MD Subjective: * Chief Complaints: * ???Open sore - Toe * HPI: ???Skin problems:?Pt States PCP Visit: ?DATE?03/25/2024 ?Treatments:?, soaks , Topical abx.? * Medical History:? * Surgical History:?umbilical hernia repair tubal surgery secondary to tubal blockage lap band 04/01/19right hip replacement 10/20227645L6-Z0 decompression and fusion with intrumentation 01/2015torn meniscus- [...] of the wound post debridement is stable (25782).? * Procedure Codes:?80569 ACTIV E WOUND CARE/20 CM OR < [...] Ennis DPM Date:?2023 Generated for Thien turner/Bandar/Rashmiitting on:?08/27/2024 12:48 PM EST History and Physical [...]
--- OUTSIDE RECORDS SUMMARY | 2024-08-27 12:49 | XMS_ITS ---
Author Organization [facility] Address [address] [place] [address] Care Team Providers Care Meat Puller Name Role Phone Chad (RETIRED) Brenton JACKSON Primary Care Provid er Unavailable Wallace Diana Jr Unavailable REASON FOR VISIT pathology/waiting on pt call back Encounters Encounter Location Date Provider Diagnosis [facility] [address] [place] [address] 08/05/2024 Wallace Diana Jr PLAN OF TREATMENT No Information
--- OUTSIDE RECORDS SUMMARY | 2024-08-27 12:50 | XMS_ITS | Patient Health Record ---
Author Organization [facility] Address [address] [place] [address] Care Team Providers Care Fryer Operator Name Role Phone Chad (RETIRED) Brenton JACKSON Primary Care Provid er Unavailable Wallace Diana Jr Unavailable [phone] ALLERGIES Allergen (clinical drug ingredient) Drug/Non Drug Allergy documented on EMR Reaction Allergy Type Onset Date Status morphine Morphine Sulfate Unknown Drug Allergy Active codeine Codeine Sulfate Unknown Drug Allergy A ctive RESULTS Component Value Reference Range Notes Pathology Reviewed date:08/05/2024 08:12:04 AM Interpretation: Performing Lab:[facility], [address] [place] [address] Notes/Report: REASON FOR REFERRAL No Information MEDICATIONS [...] Problem Colon cancer screening (Z12.11) Active confirmed 036877216 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) use of non-steroidal anti-inflammatorie s (NSAID) (Z79.1) Active confirmed 650554554 Problem Long-term current use of high risk medication other than anticoagulant (Z79.899) Active confirmed 075496601 VITAL SIGNS Temperature 97.8 degrees Fahrenheit 05/18/2024 Blood pressure diastolic 00 mm Hg 05/18/2024 Height 66 in 05/18/2024 Blood pressure systolic 000 mm Hg 05/18/2024 Weight 223 lb 1 oz lbs 05/18/2024 BMI 36.00 kg/m2 05/18/2024 Encounters Encounter Location Date Provider Diagnosis [facility] Outpatient [address] [place] [id number] 06/09/2024 Wallace Diana Jr [facility] Outpatient [address] [place] [id number] 07/28/2024 Wallace Diana Jr Colon cancer screening Z12.11 ; Personal history of colonic polyps Z86.0100 and Colon polyps K63.5 [facility] [address] [place] [address] 05/18/2024 Wallace Diana Jr Colon cancer screening Z12.11 and Long-term current use of high risk medication other than anticoagulant Z79.899 [facility] [address] [place] [address] 06/08/2024 Wallace Diana Jr [facility] [address] [place] [address] 08/05/2024 Wallace Diana Jr ASSESSMENTS Encounter Date [...] Date MEDICARE OF [place] [address] [place] [address] [id number] ALYSA VELARDE Self - patient is the insured [employer] ([employer]) [address] [place] [address] [phone] [id number] ALYSA VELARDE Self - patient is the insured MEDICAL (GENERAL) HISTORY Medical History History ICD Code KANIKA/CPAP Hypothyroidism Hyperlipidemia Postnasal drip Rosacea Elevated BMI Colonoscopy 06/25, tubular adenoma, five -year followup Surgical History Surgery Date(Month/Year) lap band/removed 2855-4609 back surgery, L 2-3 decompression 2014 umbilical hernia repair bartholin cyst removed torn meniscus left knee right hip replacement 10/26/2022
--- OUTSIDE RECORDS SUMMARY | 2024-08-27 12:50 | XMS_ITS | Patient Health Record ---
Author Organization [facility] Address [address] [place] [address] Care Team Providers Care Upholstery Mechanic Name Role Phone Brenton Bonilla MD Primary Care Provider Unavail able Black, Sejal Unavailable [phone] Allergies Allergen (clinical drug ingredient) Drug/Non Drug [...] W/U Status Risk Notes Problem Plantar wart (84245741) Plantar wart (B07.0) Active confirmed Problem Acquired hammer toe of right foot (1540422032850903 ) Other hammer toe(s) (acquired), right foot (M20.41) Active confirmed Problem Mononeuropathy of lower limb (086546867) Neuritis of left foot (G57.92) Active confirmed Problem 683927757 Hammertoe of right foot (M20.41) Active confirmed Problem Ulcer of toe of right foot (disorder) (8627352641398897 1) Skin ulcer of toe of right foot, limited to breakdown of skin (L97.511) Active confirmed Response to treatment,No napplicable Problem Localized, primary osteoarthritis of the ankle and/or foot (768945006) Arthritis of joint of lesser toe, right (M19.071) Active confirmed Problem Ulcer of toe of left foot (disorder) (3648996204844900 2) Skin ulcer of toe of left foot, limited to breakdown of skin (L97.521) Active confirmed Response to treatment Vital Signs Height 5ft 4in in 04/27/2024 Weight 221 lbs 04/27/2024 BMI 37.93 kg/m2 04/27/2024 Procedures Procedure Date Ordered Date Performed Result Body Sit e 95544-Jllt Destruction, 1-14 04/13/2024 N/A 32137-Oiwaasbn Plate 04/13/2024 N/A 80065- Debride <25 sq cm 04/27/2024 N/A Encounters Encounter Location Date Provider Diagnosis [facility] [place] [address] [place] [address] 03/16/2024 Sejal Black Pain in right toe(s) [...] M77.42 and Hammertoe of right foot M20.41 [facility] [address] [address] 04/13/2024 Sejal Black Ingrown nail L60.0 ; Pain in left foot M79.672 ; Neuritis of left foot G57.92 ; Right foot pain M79.671 ; Plantar wart B07.0 and Left foot pain M79.672 [facility] [address] [address] 04/27/2024 Sejal Black Skin ulcer of toe [...] Treatment Pending Test Test Name Order Date 27067-Eoic Destruction, 1-14 04/13/2024 75810-Mspfckfi Plate 04/13/2024 65896- Debride <25 sq cm 04/27/2024 Insurance Providers Payer Name Payer Address Payer Phone Subscriber Number Group Number Insured Name Patient Relationship to Insured Coverage Start Date Coverage End Date Medicare National [employer] [address] [facility] [address] [id number] Meredith Casey Self - patient is the insured [employer]) [address] [place] [address] [id number] Meredith Casey Self - patient is [...]
== END 2024-08-27 13:17 | disposition home or self-care (01) ==
PROVIDERS: PCP Internal Medicine; Visit Provider Physician Assistant
DX: Z98.1 Arthrodesis status (principal)
CPT/HCPCS: 99024

== ENCOUNTER 2024-10-08 14:45 | Outpatient (REF) | payer MEDICARE, OTHER, SELFPAY | END 2024-10-08 14:46 | disposition home or self-care (01) | LOC: HO.HOSX 14:45 | PROVIDERS: PCP Internal Medicine; Visit Provider Physician Assistant | DX: Z98.1 Arthrodesis status (principal) | CPT/HCPCS: 99212 ==

== ENCOUNTER 2024-10-08 14:45 | Outpatient (AMB) | payer MEDICARE, OTHER, SELFPAY ==
--- NOTE | 2024-10-08 15:27 | A.SPINEOV_ITS ---
Intake Visit Reasons: 2nd post op with Xrays Intake Note: Ms. Casey is here today for her 2nd post op with x-rays. Doorperson Or Luggage Porter Required: No Allergies codeine [CODEINE] Allergy (Intermediate, Verified 08/27/24 11:30) HALLUCINATION morphine [MORPHINE] Allergy (Intermediate, Verified 08/27/24 11:30) NAUSEA & VOMITING, HALLUCINATIONS, nausea and vomiting Codeine Phosphate Allergy (Unknown, Uncoded 08/05/24 11:51) nausea and vomiting Assessment & Plan Assessment & Plan (1) S/P fusion of sacroiliac joint: Code(s): Z98.1 - Arthrodesis status Category: Medical Plan Mrs Casey is about 9 weeks out from her right SI joint fusion. She has seen significant improvement in the deep pain she was having on the right side before surgery. She does have a more superficial pain which she localizes root along the track of the incision heading down toward the trajectory of where we place the implant. I think this is mostly related to soft tissue in that area. We discussed activity guidelines, restrictions and expectations after SI joint fusion. At this point she can resume her physical therapy exercises she was doing for her hip. I will order a plain film x-ray to evaluate the placement of the implant. As long as that looks okay, we can see her back on an as-needed b asis. Avinash Evans MD, PhD [facility] Orders: Orders XR pelvis min 3V Today Z98.1 - Arthrodesis status Coding Level of Care Code Global (28642) Diagnoses S/P fusion of sacroiliac joint Z98.1
--- OUTSIDE RECORDS SUMMARY | 2024-10-08 16:13 | XMS_ITS ---
Author Organization [facility] Address [address] [place] [address] Care Team Providers Care Business Intelligence Administrator Name Role Phone Chad (RETIRED) Brenton JACKSON Primary Care Provid er Unavailable Wallace Diana Jr Unavailable REASON FOR VISIT colon screening Encounters Encounter Location Date Provider Diagnosis [facility] Outpatient [address] [place] [phone] 07/28/2024 Wallace Diana Jr Colon cancer screening [...] ALYSA VELARDE CDOB:[birth year] (74 yo F)Acc No.[id number]:07/28/2024 COLON WITH MAC Patient:?ALYSA VELARDE Provider:?Wallace Diana MD :1950???Age:74 Y???Sex:Female D ate:07/28/2024 Address: [address] [id number] Pcp:Brenton Bonilla (RETIRE D), DO Subjective: * Chief Complaints: * ???1. Colon screening. * Medical History:? Objective: * Vitals:? Assessment: * Assessment: 1.?Colon cancer screening - Z12.11 (Primary)???2.?Personal history of colonic polyps - Z86.0100???3.?Colon polyps - K63.5??? Plan: * Treatment: * Procedure Codes:?G0105 COLOR EC CANCR SCR; COLNSCPY HI RISK, 41591 COLONOSCOPY AND BIOPSY, 0529F INTRVL 3+YRS PTS CLNSCP DOCD * * The named appointment provid er may or may not be the originator of this progress note, and it is not deemed complete until electronically signed by the appointment provider. Sign off status: Pending * Provider:?Wallace Diana MD Date:?0 07/28/2024 Generated for Thien turner/Bandar/Rashmiitting on:?10/08/2024 04:13 PM EDT
--- OUTSIDE RECORDS SUMMARY | 2024-10-08 16:13 | XMS_ITS ---
Author Organization [facility] [place] Address [address] [facility] [place] [address] Care Team Providers Care Investigator Operator Name Role Phone Brenton Bonilla MD Primary Care Provider Unavail able Black, Sejal Unavailable [phone] Allergies Allergen (clinical drug ingredient) Drug/Non Drug [...] Problem Acquired hammer toe of right foot (4442556547595924) Other hammer toe(s) (acquired), right foot (M20.41) Active confirmed Problem Localized, primary osteoarthritis of the ankle and/or foot (454561454) Arthritis of joint of lesser toe, right (M19.071) Active confirmed Problem 194979003 Hammertoe of right foot (M20.41) Active confirmed Vital Signs Height 5 ft 4.5 in in 03/16/2024 Weight 225 lbs lbs 03/16/2024 BMI 38.02 kg/m2 03/16/2024 Encounters Encounter Location Date Provider Diagnosis [facility] [address] [address] 03/16/2024 Sejal Black Pain in right toe(s) [...] Meredith CASEY CDOB:[birth year] (73 yo F)Acc No.[id number]:03/16/2024 Progress Notes Patient:?Meredith Casey Provider:?Sejal Ennis DPM :1950???Age:73 Y???Sex:Female D ate:03/16/2024 Address:[address] [place], [place] [phone] Pcp:Brenton Bonilla MD Subjective: * Chief Complaints: [...] tubal blockage lap band 04/01/19right hip replacement 10/20223038Q5-N8 decompression and fusion with intrumentation 01/2015torn meniscus- [...] yes, golf. ?Marital status: single. 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 * Medications:?TakingMelatonin Aller-Chlor advil Vitamin B12 1000 [...] Ennis DPM Date:?2023 Generated for Thien turner/Bandar/Darnell on:?10/08/2024 04:12 PM EDT History and Physical Notes * HPI (History [...] are clear, B/L Orthopedic GAIT ABNORMALITY: antalgic FOOTWEAR EVALUATION: shoe gear propertie s exacerbate patients foot/toe deformity DIGITAL DEFORMITIES: Digital [...]
--- OUTSIDE RECORDS SUMMARY | 2024-10-08 16:13 | XMS_ITS ---
Author Organization [facility] Address [address] [facility] [place] [address] Care Team Providers Care Heat And Frost Insulator Helper Name Role Phone Brenton Bonilla MD Primary Care Provider Unavail able Black, Sejal Unavailable [phone] Allergies Allergen (clinical drug ingredient) Drug/Non Drug [...] Ulcer of toe of left foot (disorder) (4310793700 2935240) Skin ulcer of toe of left foot, limited to breakdown of skin (L97.521) Active confirmed Response to treatment Problem Ulcer of toe of right foot (disorder) (5024719194 4603614) Skin ulcer of toe of right foot, limited to breakdown of skin (L97.511) Active confirmed Response to treatment,Non applicable Vital Signs Height 5ft 4in in 04/27/2024 Weight 221 lbs 04/27/2024 BMI 37.93 kg/m2 04/27/2024 Procedures Procedure Date Ordered Date Performed Result Body Sit e 57426- Debride <25 sq cm 04/27/2024 N/A Encounters Encounter Location Date Provider Diagnosis [facility] [place] [address] [place] [address] 04/27/2024 Sejal Black Skin ulcer of toe [...] INSTRUCTIONS.pdf) Pending Test Test Name Order Date 22193- Debride <25 sq cm 04/27/2024 Next Appt [...] of the wound post debridement is stable (45618) Progress Notes * Meredith CASEY CDOB:[birth year] (73 yo F)Acc No.[id number]:04/27/2024 Progress Notes Patient:?Meredith Casye Provider:?Sejal Ennis DPM :1950???Age:73 Y???Sex:Female D ate:04/27/2024 Address:[address] [place], [place] [phone] Pcp:Brenton Bonilla MD Subjective: * Chief Complaints: * ???Open sore - Toe * HPI: ???Skin problems:?Pt States PCP Visit: ?DATE?03/25/2024 ?Treatments:?, soaks , Topical abx.? * Medical History:? * Surgical History:?umbilical hernia repair tubal surgery secondary to tubal blockage lap band 04/01/19right hip replacement 10/20220265I1-U6 decompression and fusion with intrumentation 01/2015torn meniscus- [...] of the wound post debridement is stable (08700).? * Procedure Codes:?27343 ACTIV E WOUND CARE/20 CM OR < [...] DPM Date:?2023 Generated for Thien turner/Bandar/Darnell on:?10/08/2024 04:13 PM EDT History and Physical Notes * [...]
--- OUTSIDE RECORDS SUMMARY | 2024-10-08 16:13 | XMS_ITS ---
Author Organization [facility] Address [address] [place] [address] Care Team Providers Care Home Management Supervisor Name Role Phone Chad (RETIRED) Brenton JACKSON Primary Care Provid er Unavailable Wallace Diana Jr Unavailable [phone] REASON FOR VISIT screening Encounters Encounter Location Date Provider Diagnosis [facility] Outpatient [address] [place] [phone] 06/09/2024 Wallace Diana Jr Plan Of Treatment No Information Progress Notes * ALYSA VELARDE CDOB:[birth year] (74 yo F)Acc No.[id number]:06/09/2024 COLON WITH MAC Patient:?ALYSA VELARDE Provider:?Wallace Diana MD :1950???Age:74 Y???Sex:Female D ate:06/09/2024 Address: [address] [place] [facility] Pcp:Bernton Bonilla (RETIRE D), DO Subjective: * Chief Complaints: * ???1. Screening. * Medical History:? Objective: * Vitals:? Assessment: Plan: * Treatment: * * The named appointment provid er may or may not be the originator of this progress note, and it is not deemed complete until electronically signed by the appointment provider. Sign off status: Pending * Provider:?Wallace Diana MD Date:?1 08/10/2023 Generated for Maciei ng/Falorettag/eTransmitting on:?10/08/2024 04:13 PM EDT
--- OUTSIDE RECORDS SUMMARY | 2024-10-08 16:13 | XMS_ITS ---
Author Organization [facility] Address [address] [facility] [place] [address] Care Team Providers Care Serology Technician Name Role Phone Brenton Bonilla MD Primary Care Provider Unavail able Black, Sejal Unavailable [phone] Allergies Allergen (clinical drug ingredient) Drug/Non Drug [...] Risk Notes Problem Mononeuropathy of lower limb (995221044) Neuritis of left foot (G57.92) Active confirmed Problem Plantar wart (47617852) Plantar wart (B07.0) Active confirmed Vital Signs Height 5ft 4.5in in 04/13/2024 Weight 221 lbs 04/13/2024 BMI 37.34 kg/m2 04/13/2024 Procedures Procedure Date Ordered Date Performed Result Body Sit e 09822-Kjxq Destruction, 1-14 04/13/2024 N/A 69085-Ibjarqnm Plate 04/13/2024 N/A Encounters Encounter Location Date Provider Diagnosis [facility] [address] [address] 04/13/2024 Sejal Black Ingrown nail L60.0 ; [...] Treatment Pending Test Test Name Order Date 47156-Aqys Destruction, 1-14 04/13/2024 85049-Zmhwbrti Plate 04/13/2024 Next Appt Details Follow Up: 2 Weeks, Reason: Procedure Notes * Category Sub-Category Detail Notes Wart Treatment Procedure Verrucae were de brided to pin-point bleeding margins with sterile 15 surgical blade, silver nitrate chemocautery applied, recomm. immune-boosting meds such as zinc, recomm. follow up with topical chemosurgical agents, Pt defers any other forms of tx - 68809 Nail Avulsion Procedure A fine sterile e [...] Motrin was recommended for pain or discomfort (48752) , Pt DEFERS matricectomy Anesthesia 3cc of 1 percent Lid ocaine Plain local anesthesic utilizing aseptic technique Location Lateral nail border , T7 Progress Notes * Meredith CASEY CDOB:[birth year] (73 yo F)Acc No.[id number]:04/13/2024 Progress Note Patient:Meredith Sandoval Provider:?Sejal Ennis DPM :1950???Age:73 Y???Sex:Female D ate:04/13/2024 Address:[address] [place], [place] [id number] Pcp:Brenton Bonilla MD Subjective: * Chief Complaints: [...] tubal blockage lap band 04/01/19right hip replacement 10/20227153H9-B2 decompression and fusion with intrumentation 01/2015torn meniscus- [...] yes, golf. ?Marital status: single. 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 * Medications:?TakingMelatonin Aller-Chlor advil Vitamin B12 1000 [...] B07.0 (Primary)? Plan: * Treatment: 2.?Ingrown nail?Procedure: 24509-Riwyrcor Plate * Procedures:?Nail Avulsion:?Location?Lateral nail border , [...] Motrin was recommended for pain or discomfort (86073) , Pt DEFERS matricectomy.?Wart Treatment:?Procedure?Verrucae were debrided to pin-point bleeding margins with sterile 15 surgical blade, silver nitrate chemocautery applied, recomm. immune-boosting meds such as zinc, recomm. follow up with topical chemosurgical agents, Pt defers any other forms of tx - 27636.? * Procedure Codes:?49347 Avuls ion Plate, Modifiers: T7 08564 Wart Destruction, 1- 14, Modifiers: XS * [...]
--- OUTSIDE RECORDS SUMMARY | 2024-10-08 16:13 | XMS_ITS ---
Author Organization [facility] Address [address] [place] [address] Care Team Providers Care Brush Clearer Surveying Name Role Phone Chad (RETIRED) Brenton JACKSON Primary Care Provid er Unavailable Wallace Diana Jr Unavailable [phone] REASON FOR VISIT pathology/waiting on pt call back Encounters Encounter Location Date Provider Diagnosis [facility] [address] [place] [address] 08/05/2024 Wallace Diana Jr Plan Of Treatment No Information Progress Notes * ALYSA VELARDE CDOB:[birth year] (74 yo F)Acc No.[id number]:08/05/2024 Patient:?ALYSA VELARDE :1950???Age:74 Y???Sex:Female Address:[address], [place] [address] * true * Date:? Generated for Printi ng/Faxing/eTransmitting on:?10/08/2024 04:13 PM EDT
--- OUTSIDE RECORDS SUMMARY | 2024-10-08 16:14 | XMS_ITS | Patient Health Record ---
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 Name Role Phone Chad (RETIRED) Brenton JACKSON Primary Care Provid er Unavailable Wallace Diana Jr Unavailable [phone] Allergies Allergen (clinical drug ingredient) Drug/Non Drug Allergy documented on EMR Reaction Allergy Type Onset Date Status morphine Morphine Sulfate Unknown Drug Allergy Active codeine Codeine Sulfate Unknown Drug Allergy A ctive Results Component Value Reference Range Notes Pathology Reviewed date:08/05/2024 08:12:04 AM Interpretation: Performing Lab:[facility], [address] [place] [id number] Notes/Report: Name: Alysa Casey Age/Sex: 74/F : 1950 Unit#: [id number] Attend Dr: Wallace Diana MD Re07/28/24 Status : [facility] Location: [facility] Disch: SPEC : [id number] RECD: 07/28/24 STATUS: [facility] NUM: [id number] KANE: 07/28/24-[address] [facility] [address]: Wallace Diana MD ENTERED: 07/28/24- 11 SP TYPE: Surgical OTHR DR: Brenton Bonilla DO ORDERED: HE Stain/6, Gross Micro L4/2 Diagnosis A. Colon, at 80 cm, polyp: Tubular adenoma, completely excised; negative for high-grade dysplasia and carcinoma. B. Colon, at 70 cm, polyp: Tubular adenoma, likely excised; negative for high-grade dysplasia and carcinoma. Clinical History Pre-Op Dx: Screening Post-Op Dx: Colon polyps Microscopic Description Microscopic sections reviewed. Material Received A. Polyp at 80 B. Polyp at 70 Gross Description Received in two parts. Part A: Received in formalin labeled polyp at 80? is a 0.3 cm espinal-pink irregular tissue fragment, submitted in toto in a cassette labeled A. Part B: Received in formalin labeled ?polyp at 70? is a 0.35 cm espinal-pink papular tissue fragment, submitted in toto in a cassette labeled B. CEDS Copies To: Wallace Diana MD [address] [place], [place] [id number] CONTINUED ON NEXT PAGE Name: CarmelaAlysa Tanya Age/Sex: 74/F : 1950 Unit#: [id number] Attend Dr: Wallace Diana MD Re07/28/24 Status : [facility] Location: [facility] Disch: SPEC : [id number] RECD: 07/28/24 STATUS: [facility] NUM: [id number] KANE: 07/28/[address] [facility] [address]: Wallace Diana MD ENTERED: 07/28/24 11 SP TYPE: Surgical OTHR DR: Brenton Bonilla DO ORDERED: HE Stain/6, Gross Micro L4/2 Copies To: (Continued) Brenton Bonilla DO [facility] [address] [place] [address] Signed (si gnature on file) Lashay Duarte 07/29/24 1422 END OF REPORT Reason For Referral No Information Medications Medication [...] directed Ora lly once a day Active Immunizations Vaccine Route Administration Date Status Comme nts Influenza Unknown 05/29/2018 Administered Influenza Unknown 05/21/2023 Administered Social History Tobacco Use: Social History Observation Description Date Details (start date - stop date) Former Smoker NA - NA Tobacco Use/Smoking Question Answer Notes Patient is [...] Never (0 point) Points 4 Interpretation Positive Problems Problem Type SNOMED Code ICD Code Onset Dates Problem Status W/U Status Risk Notes Problem 735345685 Colon cancer screening (Z12.11) Active confirmed 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 of non-steroidal anti-inflammatorie s (NSAID) (Z79.1) Active confirmed Problem 292348202 Long-term curren t use of high risk medication other than anticoagulant (Z79.899) Active confirmed Vital Signs Temperature 97.8 degrees Fahrenheit 05/18/2024 Blood pressure diastolic 00 mm Hg 05/18/2024 Height 66 in 05/18/2024 Blood pressure systolic 000 mm Hg 05/18/2024 Weight 223 lb 1 oz lbs 05/18/2024 BMI 36.00 kg/m2 05/18/2024 Encounters Encounter Location Date Provider Diagnosis [facility] Outpatient [address] [place], [place] [phone] 07/28/2024 Wallace Diana Jr Colon cancer screening Z12.11 ; Personal history of colonic polyps Z86.0100 and Colon polyps K63.5 [facility] [address] [place] [address] 05/18/2024 Wallace Diana Jr Colon cancer screening Z12.11 and Long-term current use of high risk medication other than anticoagulant Z79.899 [facility] [address] [address] 06/08/2024 Wallace Diana Jr [facility] [address] [address] 08/05/2024 Wallace Diana Jr Assessments Encounter Date Diagnosis (ICD Code) Assessment Notes Treatment Notes Treatment Clinical Notes Section Notes 07/28/2024 Colon cancer screening (ICD-10 - Z12.11) 07/28/2024 Personal history of colonic polyps (ICD-10 - Z86.0100) 05/18/2024 Colon cancer screening (ICD-10 - Z12.11) Alysa is doing well. She is due for followup colonoscopy. We discussed risks and benefits of the procedure today. She understands these and agrees to proceed. She is advised to stop NSAIDs one week before the procedure and Wegovy one week before the procedure. 05/18/2024 Long-term current use of high risk medication other than anticoagulant (ICD-10 - Z79.899) Alysa is doing well. She is due for followup colonoscopy. We discussed risks and benefits of the procedure today. She understands these and agrees to proceed. She is advised to stop NSAIDs one week before the procedure and Wegovy one week before the procedure. 07/28/2024 Colon polyps (ICD-10 - K63.5) 05/18/2024 Other Colonoscopy material was printed Alysa is doing well. She is due for followup colonoscopy. We discussed risks and benefits of the procedure today. She understands these and agrees to proceed. She is advised to stop NSAIDs one week before the procedure and Wegovy one week before the procedure. Plan Of Treatment Future Test Test Name Order Date COLONOSCOPY 04/22/2019 COLONOSCOPY 05/18/2024 Insurance Providers Payer Name Payer Address Payer Phone Subscriber Number Group Number Insured Name Patient Relationship to Insured Coverage Start Date Coverage End Date MEDICARE OF [place] [address] [place] [address] [id number] ALYSA CASEY Self - patient is the insured [email or web address] Insurance (Creditable) [address] [place] [address] [id number] ALYSA CASEY Self - patient is the insured Medical (General) History Medical History History ICD Code KANIKA/CPAP Hypothyroidism Hyperlipidemia Postnasal drip Rosacea Elevated BMI Colonoscopy 06/25, tubular adenoma, five -year followup Surgical History Surgery Date(Month/Year) lap band/removed 0965-1260 back surgery, L 2-3 decompression 2014 umbilical hernia repair bartholin cyst removed torn meniscus left knee right hip replacement 10/26/2022
--- OUTSIDE RECORDS SUMMARY | 2024-10-08 16:14 | XMS_ITS | Patient Health Record ---
Author Organization [facility] Address [address] [place] [address] Care Team Providers Care Global Recruiter Name Role Phone Brenton Bonilla MD Primary Care Provider Unavail able Black, Sejal Unavailable [phone] Allergies Allergen (clinical drug ingredient) Drug/Non Drug [...] W/U Status Risk Notes Problem Plantar wart (60344041) Plantar wart (B07.0) Active confirmed Problem Acquired hammer toe of right foot (3626662926949694 ) Other hammer toe(s) (acquired), right foot (M20.41) Active confirmed Problem Mononeuropathy of lower limb (696106623) Neuritis of left foot (G57.92) Active confirmed Problem 099935590 Hammertoe of right foot (M20.41) Active confirmed Problem Ulcer of toe of right foot (disorder) (0403520157319412 1) Skin ulcer of toe of right foot, limited to breakdown of skin (L97.511) Active confirmed Response to treatment,No napplicable Problem Localized, primary osteoarthritis of the ankle and/or foot (562796887) Arthritis of joint of lesser toe, right (M19.071) Active confirmed Problem Ulcer of toe of left foot (disorder) (3582186919966747 2) Skin ulcer of toe of left foot, limited to breakdown of skin (L97.521) Active confirmed Response to treatment Vital Signs Height 5ft 4in in 04/27/2024 Weight 221 lbs 04/27/2024 BMI 37.93 kg/m2 04/27/2024 Procedures Procedure Date Ordered Date Performed Result Body Sit e 26396-Efya Destruction, 1-14 04/13/2024 N/A 55292-Jkqijtmw Plate 04/13/2024 N/A 50848- Debride <25 sq cm 04/27/2024 N/A Encounters Encounter Location Date Provider Diagnosis [facility] [place] [address] [place] [address] 03/16/2024 Sejal Black Pain in right toe(s) [...] M77.42 and Hammertoe of right foot M20.[address] [facility] [address] [address] 04/13/2024 Sejal Black Ingrown nail L60.0 ; Pain in left foot M79.672 ; Neuritis of left foot G57.92 ; Right foot pain M79.671 ; Plantar wart B07.0 and Left foot pain M79.672 [facility] [address] [address] 04/27/2024 Sejal Black Skin ulcer of toe [...] Treatment Pending Test Test Name Order Date 59557-Arlo Destruction, 1-14 04/13/2024 89174-Kuszyvsm Plate 04/13/2024 60143- Debride <25 sq cm 04/27/2024 Insurance Providers Payer Name Payer Address Payer Phone Subscriber Number Group Number Insured Name Patient Relationship to Insured Coverage Start Date Coverage End Date Medicare National Govt Sv[employer] [address] [place] [address] [id number] Meredith Casey Self - patient is the insured [employer]) [address] [place] [address] [id number] Meredith Casey Self - patient is [...]
== END 2024-10-08 16:00 | disposition home or self-care (01) ==
LOC: HO.HNS 14:46
PROVIDERS: PCP Internal Medicine; Visit Provider Physician Assistant
DX: Z98.1 Arthrodesis status (principal)
CPT/HCPCS: 99024

== ENCOUNTER 2024-11-02 09:48 | Outpatient (REF) | payer MEDICARE, OTHER, SELFPAY ==
--- OUTSIDE RECORDS SUMMARY | 2024-11-02 11:08 | XMS_ITS | Patient Health Record ---
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 Linux Engineer Name Role Phone Brenton Bonilla MD Primary Care Provider Unavail able Black, Sejal Unavailable [phone] Allergies Allergen (clinical drug ingredient) Drug/Non Drug [...] W/U Status Risk Notes Problem Plantar wart (84707761) Plantar wart (B07.0) Active confirmed Problem Acquired hammer toe of right foot (6118601542788803 ) Other hammer toe(s) (acquired), right foot (M20.41) Active confirmed Problem Mononeuropathy of lower limb (416642909) Neuritis of left foot (G57.92) Active confirmed Problem 536870915 Hammertoe of right foot (M20.41) Active confirmed Problem Ulcer of toe of right foot (disorder) (1128060960660242 1) Skin ulcer of toe of right foot, limited to breakdown of skin (L97.511) Active confirmed Response to treatment,No napplicable Problem Localized, primary osteoarthritis of the ankle and/or foot (488797237) Arthritis of joint of lesser toe, right (M19.071) Active confirmed Problem Ulcer of toe of left foot (disorder) (0260305989412726 2) Skin ulcer of toe of left foot, limited to breakdown of skin (L97.521) Active confirmed Response to treatment Vital Signs Height 5ft 4in in 04/27/2024 Weight 221 lbs 04/27/2024 BMI 37.93 kg/m2 04/27/2024 Procedures Procedure Date Ordered Date Performed Result Body Sit e 69351-Hyir Destruction, 1-14 04/13/2024 N/A 75256-Inwhovvv Plate 04/13/2024 N/A 72790- Debride <25 sq cm 04/27/2024 N/A Encounters Encounter Location Date Provider Diagnosis [facility] [place] [address] [place] [address] 03/16/2024 Sejal Black Pain in right toe(s) [...] M77.42 and Hammertoe of right foot M20.[address] [facility] [address] [address] 04/13/2024 Sejal Black Ingrown nail L60.0 ; Pain in left foot M79.672 ; Neuritis of left foot G57.92 ; Right foot pain M79.671 ; Plantar wart B07.0 and Left foot pain M79.672 [facility] [address] [address] 04/27/2024 Sejal Black Skin ulcer of toe [...] Treatment Pending Test Test Name Order Date 44025-Azhe Destruction, 1-14 04/13/2024 14444-Wvimeihs Plate 04/13/2024 20663- Debride <25 sq cm 04/27/2024 Insurance Providers Payer Name Payer Address Payer Phone Subscriber Number Group Number Insured Name Patient Relationship to Insured Coverage Start Date Coverage End Date Medicare National Govt Svcs Inc [address] [place] [address] [id number] Meredith Casey Self - patient is the insured [employer]) [address] [place] [address] [phone] [id number] Meredith Casey Self - patient is [...]
--- OUTSIDE RECORDS SUMMARY | 2024-11-02 11:08 | XMS_ITS ---
Author Organization [facility] Address [address] [facility] [place] [address] Care Team Providers Care Supervisor Sleeping Bag Department Name Role Phone Brenton Bonilla MD Primary Care Provider Unavail able Black, Sejal Unavailable [phone] Allergies Allergen (clinical drug ingredient) Drug/Non Drug [...] Risk Notes Problem Mononeuropathy of lower limb (933198955) Neuritis of left foot (G57.92) Active confirmed Problem Plantar wart (00964709) Plantar wart (B07.0) Active confirmed Vital Signs Height 5ft 4.5in in 04/13/2024 Weight 221 lbs 04/13/2024 BMI 37.34 kg/m2 04/13/2024 Procedures Procedure Date Ordered Date Performed Result Body Sit e 44928-Nggp Destruction, 1-14 04/13/2024 N/A 55026-Hovxsimu Plate 04/13/2024 N/A Encounters Encounter Location Date Provider Diagnosis [facility] [address] [address] 04/13/2024 Sejal Black Ingrown nail L60.0 ; [...] Treatment Pending Test Test Name Order Date 22582-Kerr Destruction, 1-14 04/13/2024 61231-Zxlwtdjg Plate 04/13/2024 Next Appt Details Follow Up: 2 Weeks, Reason: Procedure Notes * Category Sub-Category Detail Notes Wart Treatment Procedure Verrucae were de brided to pin-point bleeding margins with sterile 15 surgical blade, silver nitrate chemocautery applied, recomm. immune-boosting meds such as zinc, recomm. follow up with topical chemosurgical agents, Pt defers any other forms of tx - 10994 Nail Avulsion Procedure A fine sterile e [...] Motrin was recommended for pain or discomfort (09168) , Pt DEFERS matricectomy Anesthesia 3cc of 1 percent Lid ocaine Plain local anesthesic utilizing aseptic technique Location Lateral nail border , T7 Progress Notes * Meredith CASEY CDOB:[birth year] (73 yo F)Acc No.[id number]:04/13/2024 Progress Note Patient:Meredith Sandoval Provider:?Sejal Ennis DPM :1950???Age:73 Y???Sex:Female D ate:04/13/2024 Address:[address] [place], [place] [phone] Pcp:Brenton Bonilla MD Subjective: * Chief Complaints: [...] tubal blockage lap band 04/01/19right hip replacement 10/20221301I7-H0 decompression and fusion with intrumentation 01/2015torn meniscus- [...] yes, golf. ?Marital status: single. ?Occupation: Retired [employer]. * Medications:?TakingMelatonin Aller-Chlor advil Vitamin B12 1000 [...] B07.0 (Primary)? Plan: * Treatment: 2.?Ingrown nail?Procedure: 57475-Phjkscja Plate * Procedures:?Nail Avulsion:?Location?Lateral nail border , [...] Motrin was recommended for pain or discomfort (82546) , Pt DEFERS matricectomy.?Wart Treatment:?Procedure?Verrucae were debrided to pin-point bleeding margins with sterile 15 surgical blade, silver nitrate chemocautery applied, recomm. immune-boosting meds such as zinc, recomm. follow up with topical chemosurgical agents, Pt defers any other forms of tx - 88906.? * Procedure Codes:?89407 Avuls ion Plate, Modifiers: T7 73633 Wart Destruction, 1- 14, Modifiers: XS * [...] Ennis DPM Date:?2023 Generated for Thien turner/Bandar/Darnell on:?11/02/2024 11:07 AM EDT History and Physical Notes * HPI [...]
--- OUTSIDE RECORDS SUMMARY | 2024-11-02 11:08 | XMS_ITS ---
Author Organization [facility] [place] Address [address] [facility] [place] [address] Care Team Providers Care Outdoor Power Equipment Mechanic Name Role Phone Brenton Bonilla MD Primary Care Provider Unavail able Black, Sejal Unavailable [phone] Allergies Allergen (clinical drug ingredient) Drug/Non Drug [...] Problem Acquired hammer toe of right foot (4276854415128811) Other hammer toe(s) (acquired), right foot (M20.41) Active confirmed Problem Localized, primary osteoarthritis of the ankle and/or foot (384855989) Arthritis of joint of lesser toe, right (M19.071) Active confirmed Problem 839308911 Hammertoe of right foot (M20.41) Active confirmed Vital Signs Height 5 ft 4.5 in in 03/16/2024 Weight 225 lbs lbs 03/16/2024 BMI 38.02 kg/m2 03/16/2024 Encounters Encounter Location Date Provider Diagnosis [facility] [address] [address] 03/16/2024 Sejal Black Pain in right toe(s) [...] Meredith CASEY CDOB:[birth year] (73 yo F)Acc No.[id number]:03/16/2024 Progress Notes Patient:?Meredith Casey Provider:?Sejal Ennis DPM :1950???Age:73 Y???Sex:Female D ate:03/16/2024 Address:[address] [place], [place] [phone] Pcp:Brenton Bonilla MD Subjective: * Chief Complaints: [...] tubal blockage lap band 04/01/19right hip replacement 10/20222027Y2-E8 decompression and fusion with intrumentation 01/2015torn meniscus- [...] yes, golf. ?Marital status: single. 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 * Medications:?TakingMelatonin Aller-Chlor advil Vitamin B12 [...] DPM Date:?2023 Generated for Thien turner/Bandar/Darnell on:?11/02/2024 11:08 AM EDT History and Physical Notes * [...]
--- OUTSIDE RECORDS SUMMARY | 2024-11-02 11:08 | XMS_ITS ---
Author Organization [facility] Address [address] [facility] [place] [address] Care Team Providers Care Form Press Operator Name Role Phone Brenton Bonilla MD Primary Care Provider Unavail able Black, Sejal Unavailable [phone] Allergies Allergen (clinical drug ingredient) Drug/Non Drug [...] Ulcer of toe of left foot (disorder) (0808666464 5036941) Skin ulcer of toe of left foot, limited to breakdown of skin (L97.521) Active confirmed Response to treatment Problem Ulcer of toe of right foot (disorder) (2434924627 6781259) Skin ulcer of toe of right foot, limited to breakdown of skin (L97.511) Active confirmed Response to treatment,Non applicable Vital Signs Height 5ft 4in in 04/27/2024 Weight 221 lbs 04/27/2024 BMI 37.93 kg/m2 04/27/2024 Procedures Procedure Date Ordered Date Performed Result Body Sit e 18201- Debride <25 sq cm 04/27/2024 N/A Encounters Encounter Location Date Provider Diagnosis [facility] [place] [address] [place] [address] 04/27/2024 Sejal Black Skin ulcer of toe [...] INSTRUCTIONS.pdf) Pending Test Test Name Order Date 04446- Debride <25 sq cm 04/27/2024 Next Appt [...] of the wound post debridement is stable (78265) Progress Notes * Meredith CASEY CDOB:[birth year] (73 yo F)Acc No.[id number]:04/27/2024 Progress Notes Patient:?Meredith Casey Provider:?Sejal Ennis DPM :1950???Age:73 Y???Sex:Female D ate:04/27/2024 Address:[address] [place], [place] [phone] Pcp:Brenton Bonilla MD Subjective: * Chief Complaints: * ???Open sore - Toe * HPI: ???Skin problems:?Pt States PCP Visit: ?DATE?03/25/2024 ?Treatments:?, soaks , Topical abx.? * Medical History:? * Surgical History:?umbilical hernia repair tubal surgery secondary to tubal blockage lap band 04/01/19right hip replacement 10/20221161A9-S0 decompression and fusion with intrumentation 01/2015torn meniscus- [...] of the wound post debridement is stable (95320).? * Procedure Codes:?37501 ACTIV E WOUND CARE/20 CM OR < [...]
[2024-11-02 13:03] LABS: MANUAL DIFF FLAG NO
[2024-11-02 13:22] LABS: Basophils Percent Auto 0.4 % (0-2); Eosinophils Absolute Auto 0.2 X10*3/uL (0.0-0.4); Eosinophils Percent Auto 3.4 % (0-4); Hematocrit 43.1 % (37.0-47.0); Hemoglobin 13.7 g/dl (12.0-16.0); Imm Gran Abs Auto 0.01 X10*3/uL (0.00-0.03); Imm Gran Pct Auto 0.2 % (0.0-0.4); Lymphocytes Absolute Auto 1.7 X10*3/uL (1.2-4.9); Lymphocytes Percent Auto 32.3 % (20-40); Mean Corpuscular HGB Conc 31.8 g/dl (31.0-35.0); Mean Corpuscular Hemoglobin 29.5 pg (27.0-33.0); Mean Corpuscular Volume 92.9 fL (80.0-98.0); Mean Platelet Volume 10.5 fL (9.4-12.3); Monocytes Absolute Auto 0.4 X10*3/uL (0.1-1.2); Monocytes Percent Auto 7.6 % (2-11); Neutrophils Percent Auto 56.1 % (45-73); Platelet Count 221 X10*3/uL (160-400); Red Blood Count 4.64 X10*6/uL (4.20-5.50); Red Cell Distribution Width 13.5 % (11.0-16.0); White Blood Count 5.3 X10*3/uL (4.8-10.8)
[2024-11-02 13:32] LABS: Estimated Average Glucose 103 mg/dL; Hemoglobin A1C 120.4918 umol/L; Hemoglobin A1c % 5.2 % (<6.0); Total Hemoglobin (HGBA1C) 3637.8249 umol/L
[2024-11-02 13:40] LABS: Alanine Aminotransferase 19 U/L (0-31); Alkaline Phosphatase 91 U/L (39-117); Anion Gap 13 (12-20); Aspartate Amino Transferase 26 U/L (5-31); Bilirubin Direct 0.2 mg/dL (0.0-0.5); Bilirubin Total 0.6 mg/dL (0.0-1.0); Blood Urea Nitrogen 14 mg/dL (9-16); C Reactive Protein 0.21 mg/dL (< or = 0.50); Calcium 9.5 mg/dL (8.4-10.2); Carbon Dioxide 27 mmol/L (22-29); Chloride 111 mmol/L (96-108); Cholesterol 146 mg/dL (<200); Estimated Glomerular Filt Rate > 60; Glucose Fasting 90 mg/dL (60-99); HDL Cholesterol 55 mg/dL (>40); LDL Cholesterol Calculated 75 mg/dL (<100); Magnesium 2.1 mg/dL (1.6-2.6); Potassium 4.5 mmol/L (3.3-5.1); Sodium 146 mmol/L (135-145); Total Protein 6.6 g/dL (6.5-8.0); Triglycerides 82 mg/dL (<150)
[2024-11-02 13:46] LABS: Vitamin D 25-OH Total 59.1 ng/mL (>30)
[2024-11-02 13:57] LABS: Folate 14.2 ng/mL (> or = 4.0); Vitamin B12 577 pg/mL (200-900)
[2024-11-02 14:14] LABS: Erythrocyte Sedimentation Rate 14 MM/HR (0-20)
== END 2024-11-02 09:49 | disposition home or self-care (01) ==
LOC: HO.HMGCLDS 09:48
PROVIDERS: PCP Internal Medicine; Visit Provider Physician Assistant Medical
DX: Z00.00 Encounter for general adult medical examination without abnormal findings (principal); Z13.220 Encounter for screening for lipoid disorders; Z13.29 Encounter for screening for other suspected endocrine disorder; Z13.1 Encounter for screening for diabetes mellitus
CPT/HCPCS: 36415; 80053; 80061; 80076; 82248; 82306; 82607; 82746; 83036; 83735; 84443; 85025; 85652; 86140

== ENCOUNTER 2024-11-13 10:13 | Outpatient (AMB) | payer MEDICARE, OTHER, SELFPAY ==
--- NOTE | 2024-11-13 10:08 | MHC.PC.OV ---
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 Accompanied by: Self / Same As Patient Allergies codeine [CODEINE] Allergy (Intermediate, Verified 11/13/24 10:40) HALLUCINATION morphine [MORPHINE] Allergy (Intermediate, Verified 11/13/24 10:40) NAUSEA & VOMITING, HALLUCINATIONS, nausea and vomiting Codeine Phosphate Allergy (Unknown, Uncoded 11/13/24 10:40) nausea and vomiting Medication List - Last Reconciled 11/13/24 by Binta Argueta PA-C atorvastatin 20 mg PO BEDTIME cholecalciferol (vitamin D3) (Vitamin D3) 25 mcg PO DAILY cyanocobalamin (vitamin B-12) (Vitamin B-12) 100 mcg PO DAILY ibuprofen (Advil) 200 mg PO Q8H PRN levothyroxine (Synthroid) 50 mcg PO DAILY magnesium aspart,citrate,oxide 400 mg PO .bid melatonin 10 mg PO BEDTIME PRN meloxicam 15 mg PO DAILY mirabegron ER (Myrbetriq) 50 mg PO DAILY multivitamin 1 tab PO DAILY oxycodone 5 mg PO Q6H PRN semaglutide (weight loss) (Wegovy) 2.4 mg (0.75 mL) subcut QWEEK tizanidine 4 mg PO BID PRN vitamin B complex 1 cap PO DAILY Tobacco use date assessed: 11/13/24 Fall risk assessment: No Falls in past year Last assessed Fall Risk: 11/13/24 Dental Screening Dental Screen Date: 11/13/24 Did you have a dental visit in the last 12 months?: Yes Did you have a dental problem in the last 6 months where you did not have access to dental care?: No Was dental information given to patient?: Patient has dentist HPI 6 month follow up HPI Details The patient is a 74-year-old female presenting for a six-month follow-up visit concerning several chronic health issues. She reports significant nausea and heartburn attributed to Wegovy, a weight management medication, and reveals that its effectiveness for weight control may have plateaued. She is contemplating switching to Zepbound, although insurance coverage concerns are present. In addition, she suffers from chronic pain syndrome dating back to a skiing accident in 2012, with relief being insufficient from past physical therapy and limited options for surgical intervention due to practical limitations. She continues to experience left shoulder bursitis and tinnitus, intermittently affecting her quality of life. Her previous examinations note hyperlipidemia and hypothyroidism, managed with medication. Recent labs showed normal sodium levels with an incidental dietary excess preceding the test. She also mentions having benign polyps detected during a colonoscopy earlier this year. Social History - The patient lives alone in an apartment on the second floor. - She reports using delivery services for regular medications due to convenience. - Her weight peaked near 300 pounds before starting medical weight management. [facility] Medical History (Updated 11/13/24 @ 12:58 by Binta Argueta PA-C) History of mammogram (~03/21/24) Knee pain Establishing care with new doctor, encounter for Hypothyroidism (acquired) Hyperlipidemia LDL goal <100 Chronic pain syndrome Nausea Heart burn Class 2 obesity with body mass index (BMI) of 37.0 to 37.9 in adult KANIKA on CPAP Obesity (BMI 30-39.9) Urinary urgency Rosacea Hypothyroidism Hypercholesteremia Surgical History (Updated 11/13/24 @ 12:58 by Binta Argueta PA-C) History of colonoscopy (~07/28/24) History of right hip replacement (10/26/22) Hx of umbilical hernia repair History of removal of laparoscopic gastric banding device (~2018) Hx of laparoscopic gastric banding (~2009) H/O Spinal surgery (~2014) Family History Father No problems noted. Mother No problems noted. Social History Housing: Condominium Alcohol intake: current Alcohol intake frequency: holidays/special occasions only Patient Tobacco Use Status: Former Tobacco user service: No Current occupational status: retired Cognitive needs: Yes (cane, walker when needed) Hearing needs: No Vision needs: Yes (rx glasses) Questionnaire PHQ-9 Over the last 2 weeks, how often have you been bothered by any of the following problems? 1. Little interest or pleasure in doing things: not at all 2. Feeling down, depressed, or hopeless: not at all 3. Trouble falling or staying asleep, or sleeping too much: not at all 4. Feeling tired or having little energy: not at all 5. Poor appetite or overeating: not at all 6. Feeling bad about yourself - or that you are a failure or have let yourself or your family down: not at all 7. Trouble concentrating on things, such as reading the newspaper or watching television: not at all 8. Moving or speaking so slowly that other people could have noticed. Or the opposite - being so fidgety or restless that you have been moving around a lot more than usual: not at all 9. Thoughts that you would be better off or of hurting yourself in some way: not at all Total score: 0 Depression Screening Interpretation: Negative Depression Screening Done: Yes 54638 - PHQ-9 Billing: Yes Source: Developed by Drs. Brenton De La Rosa, Silvia Monk, Fawad Salazar and colleagues, with an educational shiv from [employer]. Thrive Questionnaire Date Thrive assessed: 11/13/24 I am a: Patient What is your living situation today?: I have a steady place to live Within the past 12 months, did the food you bought not last and you didn't have the money to get more?: Never true Within the past 12 months, did you worry whether your food would run out before you got money to buy more?: Never true Do you have trouble paying for medicines?: No Do you have trouble getting transportation to medical appointments?: No Do you have trouble paying your heating and electricity bill?: No Do you have trouble taking care of your child, family member or friend?: No Do you have trouble with day-to-day activities such as bathing, preparing meals, shopping, managing finances, etc.?: No Are you currently unemployed and looking for a job?: No Are you interested in more education?: No Please select the resources that you would like help with: None THRIVE Score: 0 AUDIT C Alcohol Use Questionnaire (AUDIT-C) 1. How often do you have a drink containing alcohol?: Never 3. How often do you have six or more drinks on one occasion?: Never Total Score: 0 Score Reviewed/Action Taken: No EDWINA-7 AMB Questionnaire EDWINA-7 Date EDWINA - 7 assessed: 11/13/24 Feeling nervous, anxious, or on edge: 0 = Not at all Not being able to stop or control worryin = Not at all Worrying too much about different things: 0 = Not at all Trouble relaxin = Not at all Being so restless that it is hard to sit still: 0 = Not at all Becoming easily annoyed or irritable: 0 = Not at all Feeling afraid as if something awful might happen: 0 = Not at all Total EDWINA-7 score (0-4 normal; 5-9 mild; 10-14 moderate; 15-21 severe): 0 Source: Developed by Drs. Brenton De La Rosa, Silvia Monk, aFwad Salazar and colleagues, with an educational shiv from [employer]. EDWINA-7 Assessment Billing EDWINA-7 Assessment Tool: EDWINA-7 Assessment 60289 Review of Systems Const Details: - Gastrointestinal: Reports nausea and heartburn. Denies other symptoms. - Musculoskeletal: Reports chronic pain on the left side and history of knee injury. - Ears: Reports tinnitus. Denies hearing loss. - Neurological: Denies dizziness or neurological deficits. - Respiratory: Reports shortness of breath with more than one flight of stairs. Physical exam (Primary Care) Vital Signs: Last Vital Signs Temp 97.6 F 11/13/24 10:20 Pulse 52 11/13/24 10:20 Resp 14 11/13/24 10:20 BP 127/58 L 11/13/24 10:20 Pulse Ox 99 11/13/24 10:20 Oxygen Delivery Method Room Air 11/13/24 10:20 Care Plan Goal for BP management: 130/90 at Goal BMI result Body Mass Index 37.0 BMI Assessment/Plan discussion: High BMI High, discussed plan: lifestyle, weight reduction, dietary, physical activity and alcohol moderation Tobacco/Smoking Status: Tobacco use Status Tobacco use date assessed 11/13/24 11/13/24 10:11 Patient Tobacco Use Status Former Tobacco user 11/13/24 10:30 PHQ-9: PHQ-9 Score PHQ-9: Total score 0 11/13/24 10:30 Depression Screening Interpretation: Negative Thrive Assessment: Date of Thrive Assessment Date Thrive assessed 11/13/24 11/13/24 10:11 Const Other: Appearance: Alert. Oriented X3. No acute distress. Head: Normal external exam. Normocephalic. Atraumatic. Eyes: Pupils are equal, round, and reactive to light. Extraocular movements intact. Conjunctiva and sclera normal. Eyelids normal. Ears: External auditory canal normal. Tympanic membranes normal. Patient reports a sensation of a flap of skin in one ear, but no abnormal growth observed. Throat: Pharynx normal. Uvula midline. Moist mucous membranes. Neck: Normal inspection. Neck supple. Full range of motion. No adenopathy. Thyroid Normal. No meningeal signs. No neck mass noted. Cardiovascular: Normal heart rate and rhythm. Heart sound normal. No murmurs noted. Pulses normal throughout. Respiratory: No respiratory distress. Painless inspiration. Breath sounds normal. No wheezes/rales/rhonchi noted. Chest nontender. No accessory muscle usage noted or decreased air movement noted. Abdomen: Soft and nontender. Back: Full range of motion noted. Skin: Skin warm and dry. Normal skin color. Normal skin turgor. No rashes/lesions/lacerations noted. Extremities: No lower extremity edema. Extremities exhibit normal range of motion. Reports pain on one side, related to a past skiing accident and decompression fusion surgery. Neuro: Oriented X 3. No motor deficit. No sensory deficit. Reflexes normal. Reports tinnitus, but hearing is generally okay. Results Reviewed Results Reviewed: - Labs: CBC normal, sodium level 146 mEq/L, normal cholesterol, vitamin B12, and D levels. - Tests and Diagnostics: Recent colonoscopy noted benign polyps. Coding Level of Care Code New Pt Level 4 (16996) Complex EM visit Add On G2211 Diagnoses Establishing care with new doctor, encounter for Z76.89 Heart burn R12 Nausea R11.0 Chronic pain syndrome G89.4 Hyperlipidemia LDL goal <100 E78.5 Hypothyroidism (acquired) E03.9 Rosacea L71.9 Knee pain M25.569 Class 2 obesity with body mass index (BMI) of 37.0 to 37.9 in adult E66.812; Z68.37 Additional Codes PHQ-9 - 70812 - PHQ-9 Billing: Yes ([id number]) EDWINA-7 Assessment Billing - EDWINA-7 Assessment Tool: EDWINA-7 Assessment 30082 ([id number]) Time Spent (min) 40 Assessment & Plan Assessment & Plan (1) Establishing care with new doctor, encounter for: Code(s): Z76.89 - Persons encountering health services in other specified circumstances Category: Medical (2) Heart burn: Code(s): R12 - Heartburn Category: Medical Plan: The patient is prescribed omeprazole and Zofran to address medication-induced nausea and heartburn. A switch to Zepbound is considered but awaits insurance approval. Condition is chronic and stable will continue to monitor. (3) Nausea: Code(s): R11.0 - Nausea Category: Medical Plan: The patient is prescribed omeprazole and Zofran to address medication-induced nausea and heartburn. A switch to Zepbound is considered but awaits insurance approval. Condition is chronic and stable will continue to monitor. (4) Chronic pain syndrome: Code(s): G89.4 - Chronic pain syndrome Category: Medical Plan: The current pain management plan is maintained, with observation and potential pain management consultation as viable steps if symptoms escalate. Condition is chronic and stable continue to monitor. (5) Hyperlipidemia LDL goal <100: Code(s): E78.5 - Hyperlipidemia, unspecified Category: Medical Plan: Lipid levels have been favorable, continuing current medication atorvastatin 20 mg at bedtime and dietary guidelines. Condition is chronic and stable will continue to monitor. (6) Hypothyroidism (acquired): Code(s): E03.9 - Hypothyroidism, unspecified Category: Medical Plan: The patient's thyroid treatment is maintained, supported by stable on levothyroxine 50 mcg daily lab results. Condition is chronic and stable continue to monitor. (7) Rosacea: Code(s): L71.9 - Rosacea, unspecified Category: Medical Plan: Continue present treatments, ensuring medication availability as necessary. Condition is chronic and stable continue to monitor. (8) Knee pain: Code(s): M25.569 - Pain in unspecified knee Category: Medical Plan: Conservative management continues in light of personal living conditions affecting post-surgery recovery feasibility. Condition is chronic and stable will continue to monitor. (9) Class 2 obesity with body mass index (BMI) of 37.0 to 37.9 in adult: Code(s): E66.812 - Obesity, class 2; Z68.37 - Body mass index [BMI] 37.0-37.9, adult Category: Medical Plan: Patient to improve her diet and exercise regimen. Condition is chronic and stable continue to monitor. Plan Plan Patient was informed and verbally consented to the use of an ambient scribe for clinic note documentation during this visit. 1. Nausea Secondary To Wegovy Use The patient is prescribed omeprazole and Zofran to address medication-induced nausea and heartburn. A switch to Zepbound is considered but awaits insurance approval. 2. Chronic Pain Syndrome The current pain management plan is maintained, with observation and potential pain management consultation as viable steps if symptoms escalate. 3. Hyperlipidemia Lipid levels have been favorable, continuing current medication and dietary guidelines. 4. Hypothyroidism The patient's thyroid treatment is maintained, supported by stable lab results. 5. Rosacea Continue present treatments, ensuring medication availability as necessary. 6. Torn Meniscus Of The Knee Conservative management continues in light of personal living conditions affecting post-surgery recovery feasibility. In our discussion, I addressed the patient's concerns about Wegovy side effects, particularly nausea and heartburn. I informed her of the possible switch to Zepbound, albeit stressing the importance of insurance authorization before proceeding. We covered continued management strategies for her chronic pain syndrome, emphasizing observation and potential referral to pain management if symptoms worsen. I reviewed her recent lab results, noting normal thyroid function, sodium levels consistent with dietary factors, and acceptable cholesterol levels. Discussions included potential future considerations for her torn meniscus, current conservative management of her bursitis, and tinnitus. I instructed the patient to maintain her current medication regimen and provided refills for ongoing prescriptions like omeprazole, Zofran, and tenazodine. We agreed upon a six-month follow-up, barring any sudden changes to her health. Medications: New omeprazole 40 mg PO DAILY 90 caps 1RF tirzepatide (weight loss) (Zepbound) for 4 weeks 2.5 mg (0.5 mL) subcut QWEEK 2 mL 0RF E66.812 - Obesity, class 2, E78.00 - Pure hypercholesterolemia, unspecified, Z68.37 - Body mass index [BMI] 37.0-37.9, adult ondansetron 4 mg PO Q8H PRN 20 tabs 0RF nausea and vomiting Changed From tizanidine 4 mg PO BID PRN Pain To tizanidine 4 mg PO BID PRN 180 caps 1RF Pain 90 days Discontinued semaglutide (weight loss) (Galdino) Discontinued Reason: Doctor's Order 2.4 mg (0.75 mL) subcut QWEEK 3 mL 0RF E66.9 - Obesity, unspecified, G47.33 - Obstructive sleep apnea (adult) (pediatric), M46.1 - Sacroiliitis, not elsewhere classified, Z98.1 - Arthrodesis status Patient Instructions: - Take the prescribed omeprazole and Zofran for nausea and heartburn relief. - Follow up with your insurance about Zepbound coverage. - Continue current medications for thyroid and cholesterol management. - Call our office if pain increases or you experience any new symptoms. - Maintain a low sodium diet, avoiding high-salt meals. - Schedule a follow-up appointment in six months or sooner if necessary.
[2024-11-13 10:20] VITALS: BP 127/58; PULSE 52; RESP 14; TEMP 36.4; O2SAT 99; BMI 37.0
== END 2024-11-13 11:01 | disposition home or self-care (01) ==
LOC: HO.HMCSH 10:13
PROVIDERS: PCP Internal Medicine; Visit Provider Physician Assistant Medical
DX: Z76.89 Persons encountering health services in other specified circumstances (principal); R12 Heartburn; R11.0 Nausea; G89.4 Chronic pain syndrome; E78.5 Hyperlipidemia, unspecified; E03.9 Hypothyroidism, unspecified; L71.9 Rosacea, unspecified; M25.569 Pain in unspecified knee; E66.812 Obesity, class 2; Z68.37 Body mass index [BMI] 37.0-37.9, adult

== ENCOUNTER → 2024-11-13 10:13 | Outpatient (BNVA) | payer MEDICARE, OTHER, SELFPAY | PROVIDERS: PCP Internal Medicine; Visit Provider Physician Assistant Medical | DX: R12 Heartburn (principal); R11.0 Nausea; G89.4 Chronic pain syndrome; E78.5 Hyperlipidemia, unspecified; E03.9 Hypothyroidism, unspecified; L71.9 Rosacea, unspecified; E66.812 Obesity, class 2; Z68.37 Body mass index [BMI] 37.0-37.9, adult; Z71.3 Dietary counseling and surveillance; Z76.89 Persons encountering health services in other specified circumstances | CPT/HCPCS: 96127; 99202 ==

== ENCOUNTER 2025-02-01 09:41 | Outpatient (AMB) | payer MEDICARE, OTHER, SELFPAY ==
[2025-02-01 10:43] VITALS: BP 122/64; PULSE 47; O2SAT 100; BMI 38.0
--- NOTE | 2025-02-01 10:43 | MHC.OFFVIS ---
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 Instructions: Resume on 08/07/24. levothyroxine (Synthroid) 50 mcg PO DAILY magnesium aspart,citrate,oxide 400 mg PO .bid melatonin 10 mg PO BEDTIME PRN meloxicam 15 mg PO DAILY mirabegron ER (Myrbetriq) 50 mg PO DAILY multivitamin 1 tab PO DAILY omeprazole 40 mg PO DAILY ondansetron 4 mg PO Q8H PRN semaglutide (weight loss) 0.25 mg (0.5 mL) subcut QWEEK tizanidine 4 mg PO BID PRN 90 days vitamin B complex 1 cap PO DAILY Do you need a note to return to daycare/school/sports/work: No HPI HPI Obstructive sleep apnea: Details: ALYSA Martínez 74 years old female is a long-term patient of mine, comes for follow-up for use of CPAP . She uses CPAP very regularly with nasal mask which she tolerates well. And does not have any issues with the CPAP mask or the device. She uses for about 5 hours every. Night and sleeps well Sometimes she ends up sleeping in the couch and did not have a chance to put on the CPAP. And a few nights she was out of the house visiting some family members and did not take the equipment with her. So she ended up using for 26 nights out of 30 nights. She is frustrated with her weight and. Had some side effects from the use of Wagovy ( nausea) so had to give this up and thus the instead of losing weight she gained a few more lb. Try to use other anti obesity agents but not covered by insurance. [facility] Medical History History of mammogram (~03/21/24) Knee pain Establishing care with new doctor, encounter for Hypothyroidism (acquired) Hyperlipidemia LDL goal <100 Chronic pain syndrome Nausea Heart burn Class 2 obesity with body mass index (BMI) of 37.0 to 37.9 in adult KANIKA on CPAP Obesity (BMI 30-39.9) Urinary urgency Rosacea Hypothyroidism Hypercholesteremia Surgical History History of colonoscopy (~07/28/24) History of right hip replacement (10/26/22) Hx of umbilical hernia repair History of removal of laparoscopic gastric banding device (~2018) Hx of laparoscopic gastric banding (~2009) H/O Spinal surgery (~2014) Family History Father No problems noted. Mother No problems noted. [facility] Alcohol intake: current Alcohol intake frequency: holidays/special occasions only Patient Tobacco Use Status: Former Tobacco user service: No Current occupational status: retired Cognitive needs: Yes (cane, walker when needed) Hearing needs: No Vision needs: Yes (rx glasses) Review of Systems Const All systems reviewed & are unremarkable except as noted in HPI and below Eyes Reports no additional complaints ENT Reports nasal congestion (Mild off and on) Card Denies syncope, Denies irregular heart rhythm and Denies leg edema Resp Reports as per HPI GI Reports no additional complaints Reports other (HAS CHRONIC URINARY URGENCY PROBLEMS) Musc Reports back pain and Reports myalgias Skin/Breast Reports system reviewed and no additional complaints, except as documented Neuro Reports no additional complaints and Denies syncope Psych Reports no additional complaints Endo Reports other (Diabetes mellitus being controlled with meds) Aller/Immun Reports no additional complaints Physical Exam Vital Signs: Last Vital Signs Pulse 47 L 02/01/25 10:43 BP 122/64 02/01/25 10:43 Pulse Ox 100 02/01/25 10:43 Oxygen Delivery Method Room Air 02/01/25 10:43 BMI result Body Mass Index 38.0 Const General: healthy appearing, comfortable, no acute distress, alert and awake Orientation/consciousness: patient oriented x3 HEENT Head: Yes normal to inspection General nose exam: No nasal polyps present, No nasal discharge present and Other nasal findings present (No active nasal congestion at this time) Face and sinus: Yes sinuses nontender Mouth: oropharynx abnormals (Crowded oropharynx, Mallampati class 3) Throat: Yes posterior oropharynx normal Eyes General: appearance normal, both eyes and all related structures Neck Neck: Yes normal visual inspection, Yes no lymphadenopathy, Yes trachea midline and Yes no JVD Thyroid: Thyroid normal Chest Chest palpation & inspection: normal inspection of the chest, normal palpation of entire chest wall and no tenderness Resp Other: Percussion note is resonant, breath sounds are equal on both sides slightly distant, No wheezes rhonchi or crepitations are heard Cardio Palpation: normal PMI Rate: regular rate Rhythm: regular rhythm Heart sounds: no gallops and no murmurs Peripheral pulses: Peripheral pulses 2+ throughout GI Palpation (GI): Soft to palpation, nontender, No hepatosplenomegaly present and no masses Auscultation: normal bowel sounds Back/Spine/Pelvis Thoracic/Lumbar Spine: thoracic and lumbar spine normal to inspection and thoraco-lumbar ROM limited Skin General skin exam: no rashes or lesions noted Neuro General: patient oriented x3 and no focal motor deficits Cranial nerves: Yes CN's II-XII intact bilaterally Extrem General: Yes normal to inspection, Yes no clubbing, cyanosis or edema and Yes no calf tenderness Psych Appearance: grossly normal and well kempt Speech and movement: Normal speech and movement present Results Reviewed Results Reviewed: COMPLIANCE REPORT FOR THE LAST 30 NIGHTS IS REVIEWED AND SHE USED 26/30 NIGHTS,. 87% AVERAGE USE IT PER NIGHT. 5 HOURS 40 MINUTE SHE IS ON CPAP OF 13 CM USING NASAL MASK. THERE WAS MODERATE DEGREE OF AIR LEAK. RESIDUAL AHI 2.4 WHICH IS WELL TREATED Assessment & Plan Assessment & Plan (1) Obesity (BMI 30-39.9): Comment: PATIENT IS A KNOWN CASE OF CHRONIC OBESITY, HAS HAD GASTRIC SURGERY IN THE PAST, ( LAP BAND ) HAD IT REMOVED DUE TO COMPLICATIONS. REGAINED SOME WEIGHT AND NOW TRYING TO KEEP IT UNDER CONTROL WITH DIET. SHE WAS STARTED ON SEMAGLUTIDE ( WAGOVY ) INJECTIONS, BUT HAD TO STOP AFTER A FEW INJECTION DUE TO NAUSEA. OTHER ALTERNATIVE MEDS IN THIS CLASS OR ORDERED BY HER PCP BUT NOT COVERED BY INSURANCE. NOW SHE IS THINKING OF GOING BACK TO WAGOVY . THERAPY Code(s): E66.9 - Obesity, unspecified Category: Medical Plan: HAD GOOD DISCUSSION ABOUT THE WEIGHT. ENCOURAGED TO GO BACK TO TRY THEwAGOVY INJECTIONS ALONG WITH RESTRICTED DIET. (2) KANIKA on CPAP: Comment: PATIENT IS KNOWN CASE OF OBSTRUCTIVE SLEEP APNEA FOR MANY YEARS, LAST SLEEP STUDY IN 2018 AND 2019. HAS BEEN USING CPAP VERY REGULARLY, WITH NASAL MASK AND PRESSURE OF 13 CM, SHE HAS BEEN BENEFITING FROM THE USE OF CPAP. IN FACT SHE WOULD NOT BE ABLE TO SLEEP WITHOUT THE CPAP ON. NOW SHE HAS A NEW CPAP DEVICE WHICH IS WORKING WELL. SHE HAS SIGNIFICANT AIR LEAK PROBLEM WHEN SHE IS SLEEPING IN LATERAL POSITION. SHE THINKS SHE IS NOT GETTING GOOD SLEEP, BUT ACCORDING TO THE COMPLIANCE REPORT SHE IS USING CPAP CLOSE TO 5 HOURS 49 MINUTES EVERY NIGHT. Code(s): G47.33 - Obstructive sleep apnea (adult) (pediatric) Category: Medical Plan: COMMENDED FOR GOOD COMPLIANCE AND REASSURED THAT SHE IS USING CPAP WELL. JUST ENCOURAGED TO PUT THE MASK ON BEFORE SHE GOES TO SLEEP ON DAILY BASIS. Coding Level of Care Code Est Pt Level 3 (71151) Diagnoses Obesity (BMI 30-39.9) E66.9 KANIKA on CPAP G47.33
== END 2025-02-01 11:14 | disposition home or self-care (01) ==
LOC: HO.HPS 09:42
PROVIDERS: PCP Internal Medicine; Visit Provider Internal Medicine
DX: E66.9 Obesity, unspecified (principal); G47.33 Obstructive sleep apnea (adult) (pediatric)
CPT/HCPCS: 99213

== ENCOUNTER → 2025-02-01 09:41 | Outpatient (BNVA) | payer MEDICARE, OTHER, SELFPAY | PROVIDERS: PCP Internal Medicine; Visit Provider Internal Medicine | DX: G47.33 Obstructive sleep apnea (adult) (pediatric) (principal); Z99.89 Dependence on other enabling machines and devices; E66.9 Obesity, unspecified; Z68.38 Body mass index [BMI] 38.0-38.9, adult | CPT/HCPCS: 99212 ==

== ENCOUNTER 2025-04-17 08:45 | Outpatient (REF) | payer MEDICARE, OTHER, SELFPAY ==
--- OUTSIDE RECORDS SUMMARY | 2025-04-17 08:48 | XMS_ITS ---
[facility] Care Team Organization Name Specialty Phone Email Start Date End pavel [facility] 03/31/2025
--- OUTSIDE RECORDS SUMMARY | 2025-04-17 08:48 | XMS_ITS | Encounter Summary ---
Author Organization [facility] Address [address] [place] [address] Care Team Providers Care Dining Room Captain Name Role Phone Unavailable Primary Care Provider Unavailabl e Encounter Details Date Type Department Care Team (Late st Contact Info) Description 03/31/2025 Scanned Document [facility] [address] [place] [phone] Bashir Brown MD [address] [facility] [address] [place] [address] Social History Tobacco Use Types Packs/Day Years Used Date Smoking Tobacco: Never Assessed Comments Unknown Sex and Gender Information Value Date Recorded Sex Assigned at Not on file Legal Sex Female 6:20 PM EST Gender Identity Not on file Sexual Orientation Not on file documented as of this encounter Plan of Treatment Upcoming Encounters Date Type Department Care Team (Late st Contact Info) Description 04/26/2025 1:30 PM EDT Consult Orthopedic [facility] [address] [place] [address] Bashir Brown MD [address] [place] [address] documented as of this encounter Visit Diagnoses Not on filedocumented in this encounter
--- OUTSIDE RECORDS SUMMARY | 2025-04-17 08:48 | XMS_ITS | Clinical Summary ---
Author Organization [facility] Address [address] [place] [address] Care Team Providers Care Basket Bottom Machine Operator Name Role Phone Unavailable Primary Care Provider Unavailabl e Encounters Date Type Department Care Team Description 04/01/2025 Orders Only [facility] [address] [phone] Bashir Brown MD Status post total replacement of right hip (Primary Dx) 03/31/2025 Scanned Document [facility] [address] [phone] Bashir Brown MD from Last 3 Months Social History Tobacco Use Types Packs/Day Years Used Date Smoking Tobacco: Never Assessed Comments Unknown Sex and Gender Information Value Date Recorded Sex Assigned at Not on file Legal Sex Female 6:20 PM EST Gender Identity Not on file Sexual Orientation Not on file Plan of Treatment Upcoming Encounters Date Type Department Care Team (Late st Contact Info) Description 04/26/2025 1:30 PM EDT Consult [facility] [address] [place] [phone] Bashir Brown MD [address] [place] [address] [address] [place] [address] Health Maintenance Due Date Last Done Comments Advance Care Planning 1950 Hepatitis C Virus Screening 1950 DTaP/Tdap/Td Vaccines (1 - Tdap) 1968 Mammogram 1989 Colonoscopy 1994 Pneumococcal Vaccines 50+ (1 of 1 - PCV) 1999 Zoster (Shingles) Vaccine (1 of 2) 1999 DXA Bone Density (Females,Ag es 65 and older) 2014 RSV Vaccine 60 years and old er and Patients (1 - 1-dose 75+ series) 2024 Influenza Vaccine 02/05/2025 COVID-19 Vaccine (2023-2 5 season) 2025 Hepatitis B Vaccines Aged Out No long er eligible based on patient's age to complete this topic Procedures Procedure Name Priority Date/Time Associated Diagnosis Comments ERYTHROCYTE SEDIMENTATION RATE (ESR) Routine 04/07/2025 12:27 PM EDT Status post total replacement of right hip C-REACTIVE PROTEIN Routine 04/07/2025 12 :27 PM EDT Status post total replacement of right hip from Last 3 Months Results * Erythrocyte Sedimentation Rate (ESR) (04/07/2025 12:27 PM EDT) Erythrocyte Sediment Rate (ESR) 14 < OR = 30 mm/h [employer] Blood Blood specimen / Unknown 04/07/2025 12:27 PM EDT 04/07/2025 12:28 PM EDT Bashir Brown MD LAB BLOOD ORDERABLES Final Re sult Performing Organization Address [facility] Co de Phone Number [employer] [address] [place] [phone] * C-REACTIVE PROTEIN (04/07/2025 12:27 PM EDT) C-Reactive Protein <3.0 <8.0 mg/L [employer] Blood Blood specimen / Unknown 04/07/2025 12:27 PM EDT 04/07/2025 12:28 PM EDT us Bashir Brown MD LAB BLOOD ORDERABLES Final Re sult Performing Organization Address [facility] Co de Phone Number [employer] [address] [place] [phone] from Last 3 Months
== END 2025-04-17 08:46 | disposition home or self-care (01) ==
LOC: HO.MAMMO 08:45
PROVIDERS: PCP Internal Medicine; Visit Provider Internal Medicine
DX: Z12.31 Encounter for screening mammogram for malignant neoplasm of breast (principal)
CPT/HCPCS: 77063; 77067

== ENCOUNTER → 2025-04-17 09:00 | Outpatient (BNV) | payer MEDICARE, OTHER, SELFPAY | PROVIDERS: PCP Internal Medicine; Visit Provider Radiology Body Imaging | DX: Z12.31 Encounter for screening mammogram for malignant neoplasm of breast (principal) | CPT/HCPCS: 77063; 77067 ==

== ENCOUNTER 2025-05-25 11:02 | Outpatient (AMB) | payer MEDICARE, OTHER, SELFPAY ==
[2025-05-25 11:06] VITALS: BP 134/60; PULSE 54; RESP 14; TEMP 36.2; O2SAT 97
--- NOTE | 2025-05-25 11:06 | A.OFFPC_ITS ---
Vital Signs 05/25/25 11:06 BMI Reason not done Patient refused/unable BP 134/60 Blood Pressure Location Rt brachial Position Sitting Respiration 14 Pulse 54 Pulse Source Pulse Oximeter Temp 97.2 F Temp Source Temporal Artery Scan Pulse Oximetry (%) 97 Oxygen Delivery Method Room Air Comment pt refused weight Intake Visit Reasons: Joint replacement It Compliance Manager Required: No Accompanied by: Self / Same As Patient Allergies codeine (CODEINE) Allergy (Intermediate, Verified 05/25/25 11:06) HALLUCINATION morphine (MORPHINE) Allergy (Intermediate, Verified 05/25/25 11:06) NAUSEA & VOMITING, HALLUCINATIONS, nausea and vomiting Codeine Phosphate Allergy (Unknown, Uncoded 05/25/25 11:06) nausea and vomiting Tobacco use date assessed: 11/13/24 Dental Screening Dental Screen Date: 11/13/24 HPI HPI Comments History of Present Illness Details History of Present Illness - The patient is a 74-year-old female pr esenting for preoperative assessment for a scheduled Tenex procedure on her right leg. - The patient has been experiencing paste mixer hope right leg pain that began approximately four weeks after a right hip replacement surgery performed two and a half years ago by Dr. Patel. - She describes the initial onset as exc ruciating pain in the front and side of her leg, causing her to almost fall when standing, with associated hardening of the muscle tissue. - A year and a half of physical therapy provided no relief. - Her previous orthopedist, Dr. Patel , diagnosed her with bursitis and advised her to sleep on her back. - The patient subsequently saw Dr. Rubén hartman, who diagnosed her with an IT band issue and a torn muscle, and deemed her a candidate for a Tenex procedure, which he stated has a 60% success rate. - The pain significantly impairs her mob ility; she cannot walk a city block, has difficulty climbing stairs, and requires assistance (using her hands or a strap) to lift her right leg into a car or bed. - For weight management, the patient has used Ozempic and is now on Wegovy, achieving a weight loss from 274 to 225 pounds. - She experienced severe nausea, vomitin g, and diarrhea after being prescribed a maximum dose of Wegovy when switching from Ozempic. - A recent attempt to switch to Zepbound was denied by insurance, which also led to a 5-6 week delay in restarting Wegovy. - She has been titrating Wegovy slowly f rom the lowest dose and is now ready to increase to the 2.4 mg dose. - The patient had a flu-like illness two weeks ago and tested negative for influenza, COVID-19, and RSV at an urgent care. Social History - Functional Status: The patient's activ ity is severely limited by chronic right leg pain. - Exercise: She is unable to walk a city block without sitting down and reports her muscles have likely atrophied. - Nutrition: The patient acknowledges molina ving difficulty avoiding carbohydrates, especially during a recent period when she was not taking Wegovy, and recognizes the need to resume her healthy eating routine. 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 Results - Labs: The last blood work on file is f rom October. - Tests and Diagnostics: Recent testing at an urgent care facility for a flu- like illness was negative for influenza, COVID-19, and RSV. [facility] Medical History History of mammogram (~03/21/24) Knee pain Establishing care with new doctor, encounter for Hypothyroidism (acquired) Hyperlipidemia LDL goal <100 Chronic pain syndrome Nausea Heart burn Class 2 obesity with body mass index (BMI) of 37.0 to 37.9 in adult KANIKA on CPAP Obesity (BMI 30-39.9) Urinary urgency Rosacea Hypothyroidism Hypercholesteremia Surgical History History of colonoscopy (~07/28/24) History of right hip replacement (10/26/22) Hx of umbilical hernia repair History of removal of laparoscopic gastric banding device (~2018) Hx of laparoscopic gastric banding (~2009) H/O Spinal surgery (~2014) Family History Father No problems noted. Mother No problems noted. Social History Housing: Condominium Alcohol intake: current Alcohol intake frequency: holidays/special occasions only Patient Tobacco Use Status: Former Tobacco user service: No Current occupational status: retired Cognitive needs: Yes (cane, walker when needed) Hearing needs: No Vision needs: Yes (rx glasses) Questionnaire PHQ-9 Over the last 2 weeks, how often have you been bothered by any of the following problems? 1. Little interest or pleasure in doing things: not at all 2. Feeling down, depressed, or hopeless: not at all 3. Trouble falling or staying asleep, or sleeping too much: not at all 4. Feeling tired or having little energy: not at all 5. Poor appetite or overeating: not at all 6. Feeling bad about yourself - or that you are a failure or have let yourself or your family down: not at all 7. Trouble concentrating on things, such as reading the newspaper or watching television: not at all 8. Moving or speaking so slowly that other people could have noticed. Or the opposite - being so fidgety or restless that you have been moving around a lot more than usual: not at all 9. Thoughts that you would be better off or of hurting yourself in some way: not at all Total score: 0 Depression Screening Interpretation: Negative Depression Screening Done: Yes 87845 - PHQ-9 Billing: Yes Source: Developed by Drs. Brenton De La Rosa, Silvia Monk, Fawad Salazar and colleagues, with an educational shiv from [employer]. Thrive Questionnaire Date Thrive assessed: 11/13/24 I am a: Patient What is your living situation today?: I have a steady place to live Within the past 12 months, did the food you bought not last and you didn't have the money to get more?: Never true Within the past 12 months, did you worry whether your food would run out before you got money to buy more?: Never true Do you have trouble paying for medicines?: No Do you have trouble getting transportation to medical appointments?: No Do you have trouble paying your heating and electricity bill?: No Do you have trouble taking care of your child, family member or friend?: No Do you have trouble with day-to-day activities such as bathing, preparing meals, shopping, managing finances, etc.?: No Are you currently unemployed and looking for a job?: No Are you interested in more education?: No Please select the resources that you would like help with: None THRIVE Score: 0 AUDIT C Alcohol Use Questionnaire (AUDIT-C) 1. How often do you have a drink containing alcohol?: Never 3. How often do you have six or more drinks on one occasion?: Never Total Score: 0 Score Reviewed/Action Taken: No EDWINA-7 AMB Questionnaire EDWINA-7 Date EDWINA - 7 assessed: 11/13/24 Feeling nervous, anxious, or on edge: 0 = Not at all Not being able to stop or control worryin = Not at all Worrying too much about different things: 0 = Not at all Trouble relaxin = Not at all Being so restless that it is hard to sit still: 0 = Not at all Becoming easily annoyed or irritable: 0 = Not at all Feeling afraid as if something awful might happen: 0 = Not at all Total EDWINA-7 score (0-4 normal; 5-9 mild; 10-14 moderate; 15-21 severe): 0 Source: Developed by Drs. Brenton De La Rosa, Silvia Monk, Fawad Salazar and colleagues, with an educational shiv from [employer]. EDWINA-7 Assessment Billing EDWINA-7 Assessment Tool: EDWINA-7 Assessment 80290 Review of Systems Narrative Review of Systems - Musculoskeletal: Reports chronic, excruciating pain in the right leg from the knee to the hip, both on the side and in the front. - Neurological: Reports right leg weakness, with an inability to lift the leg without assistance to climb stairs or get into a car. - Gastrointestinal: Reports nausea as a side effect of Wegovy. - Constitutional: Reports a history of flu-like symptoms approximately two weeks prior. Reports significant weight loss. - Psychiatric: Reports feeling bummed due to the anniversary of her mother's recent passing. Physical exam (Primary Care) Vital Signs: Last Vital Signs Temp 97.2 F 05/25/25 11:06 Pulse 54 05/25/25 11:06 Resp 14 05/25/25 11:06 BP 134/60 05/25/25 11:06 Pulse Ox 97 05/25/25 11:06 Oxygen Delivery Method Room Air 05/25/25 11:06 Tobacco/Smoking Status: Tobacco use Status Tobacco use date assessed 11/13/24 05/25/25 11:07 Patient Tobacco Use Status Former Tobacco user 05/25/25 11:07 PHQ-9: PHQ-9 Score PHQ-9: Total score 0 05/25/25 11:45 Depression Screening Interpretation: Negative Thrive Assessment: Date of Thrive Assessment Date Thrive assessed 11/13/24 05/25/25 11:07 Narrative Physical Exam General: Appearance normal, both eyes and all related structures Nutritional Appearance: Well nourished Orientation/consciousness: Patient oriented x3 Limitations: Patient reports difficulty walking, lifting leg, and climbing stairs due to pain and weakness in the right leg. Head: Normal to inspection Neck: Normal visual inspection Chest: Normal palpation of entire chest wall Respiratory: Normal respiratory effort Neurology: Patient oriented x3 Office Procedures Flu Questionnaire Does the patient have a severe egg allergy?: No Does the patient have severe life threatening allergies?: No Does the patient have a fever or illness today?: No Has the patient ever had Guillain-Arcade Syndrome?: No Has the patient ever had any past reaction to a flu shot?: No Immunizations Fluarix [id number] (PF) 45 mcg (15 mcg x 3)/0.5 mL IM syringe Performing Provider: Alexis Almeida MD [place] Administered by: ERIKA Su on 05/25/25 11:45 Dose Route Admin Location Dispensed Lot Number Expiration Date NDC Bucket Turner 0.5 mL IM Right Deltoid 0.5 mL [id number] 01/04/26 [id number] [employer] VIS Given Date VIS Provided VIS Publication Date 05/25/25 Single Vaccine 24 Eligibility Eligibility Date Funding Source Not [facility] Eligible 05/25/25 Private Coding Level of Care Code Est Pt Level 4 (83409) Complex EM visit Add On G2211 Diagnoses Sacroiliitis, not elsewhere classified M46.1 Additional Codes EDWINA-7 Assessment Billing - EDWINA-7 Assessment Tool: EDWINA-7 Assessment 93428 ([id number]) PHQ-9 - 86029 - PHQ-9 Billing: Yes ([id number]) Assessment & Plan Assessment & Plan (1) Sacroiliitis, not elsewhere classified: Code(s): M46.1 - Sacroiliitis, not elsewhere classified Category: Medical Plan Plan - The patient will proceed with the scheduled Tenex procedure for chronic right leg pain. - An order for preoperative blood work will be placed. - A prescription for Wegovy 2.4 mg will be sent to the patient's pharmacy. - The patient will receive an influenza vaccine in the office today. - The patient is advised to also receive the RSV and COVID-19 vaccines. - Advised the patient that reducing carbohydrate intake can help manage nausea associated with Wegovy. - No follow-up appointment was scheduled; the surgeon is expected to send a report following the procedure. Discussion Notes I discussed the patient's plan to undergo a Tenex procedure for her chronic right leg pain, and I have placed an order for the necessary preoperative blood work. We reviewed her weight management with Wegovy, and I explained that switching to Zepbound is not an option as her insurance will not cover it, and the side effect profile is similar. I have sent a prescription for Wegovy 2.4 mg as she has been titrating up and is ready for the next dose. We also discussed the importance of vaccinations; she will receive her flu shot today and was advised to get her RSV and COVID vaccines. I advised her that reducing carbohydrate intake may help mitigate the nausea from Wegovy. Patient Instructions - You will proceed with your scheduled Tenex procedure for your right leg pain. - Please get your blood work done before the procedure. You can go to the hospital or the clinic on [facility] in [place]. - A prescription for Wegovy 2.4 mg has been sent to [facility] [place]. - To help with nausea from Wegovy, try to eat fewer carbohydrates like bread, pasta, and sweets. - You will receive your flu shot in the office today. - It is also recommended that you get the RSV and COVID-19 vaccines. - You do not need to schedule a follow-up visit with me at this time. Your surgeon will send the results of your procedure to our office. Orders: Orders Lipid Panel Today E78.00 - Pure hypercholesterolemia, unspecified Liver Panel Today E78.00 - Pure hypercholesterolemia, unspecified Thyroid Stimulating Hormone Today E78.00 - Pure hypercholesterolemia, unspecified UA and rflx microscopic Today E78.00 - Pure hypercholesterolemia, unspecified Influenza [id number] Immunization Today Z23 - Encounter for immunization Complete Blood Count no Diff Today E78.00 - Pure hypercholesterolemia, unspecified Basic Metabolic Panel Today E78.00 - Pure hypercholesterolemia, unspecified Medications: Changed From semaglutide (weight loss) (Weelisevdevin) 0.5 mg (0.5 mL) subcut QWEEK 2 mL 0RF E66.9 - Obesity, unspecified, E78.00 - Pure hypercholesterolemia, unspecified, E78.5 - Hyperlipidemia, unspecified, G89.4 - Chronic pain syndrome To semaglutide (weight loss) 2.4 mg (0.75 mL) subcut QWEEK 3 mL 0RF 4 weeks E66.9 - Obesity, unspecified, E78.00 - Pure hypercholesterolemia, unspecified, E78.5 - Hyperlipidemia, unspecified, G89.4 - Chronic pain syndrome
== END 2025-05-25 11:50 | disposition home or self-care (01) ==
LOC: HO.HMCSH 11:02
PROVIDERS: PCP Internal Medicine; Visit Provider Internal Medicine
DX: Z23 Encounter for immunization (principal); M46.1 Sacroiliitis, not elsewhere classified

== ENCOUNTER → 2025-05-25 11:02 | Outpatient (BNVA) | payer MEDICARE, OTHER, SELFPAY | PROVIDERS: PCP Internal Medicine; Visit Provider Internal Medicine | DX: M46.1 Sacroiliitis, not elsewhere classified (principal); M79.661 Pain in right lower leg; E78.00 Pure hypercholesterolemia, unspecified; E66.9 Obesity, unspecified; G89.4 Chronic pain syndrome; Z23 Encounter for immunization; Z79.899 Other long term (current) drug therapy | CPT/HCPCS: 90471; 90656; 96127; 99212 ==

== ENCOUNTER 2025-05-27 10:20 | Outpatient (REF) | payer MEDICARE, OTHER, SELFPAY ==
--- OUTSIDE RECORDS SUMMARY | 2024-07-28 04:10 | XMS_ITS ---
Author Organization [facility] Address [address] [place] [address] Care Team Providers Care Broaching Machine Set Up Operator Name Role Phone Chad (RETIRED) Brenton JACKSON Primary Care Provid er Unavailable Wallace Diana Jr Unavailable [phone] REASON FOR VISIT colon screening Encounters Encounter Location Date Provider Diagnosis [facility] [address] [place] [phone] 07/28/2024 Wallace Diana Jr Colon cancer screening Z12.11 ; Personal history of colonic polyps Z86.0100 and Colon polyps K63.5 Assessments Encounter Date Diagnosis (ICD Code) Assessment Notes Treatment Notes Treatment Clinical Notes Section Notes 07/28/2024 Colon cancer screening (ICD-10 - Z12.11) 07/28/2024 Personal history of colonic polyps (ICD-10 - Z86.0100) 07/28/2024 Colon polyps (ICD-10 - K63.5) Plan Of Treatment No Information Progress Notes * ALYSA VELARDE CDOB:[birth year] (74 yo F)Acc No.[id number]:07/28/2024 COLON WITH MAC Patient: ALYSA BINGHAM Provider: Uzma Diana MD :1950 A ge:74 Y S ex:Female Date:07/28/2024 Address:[address] [place] [address] [address] [place], [id number] Pcp:Brenton Bonilla (RETIRE D)DO Subjective: * Chief Complaints: * C olon screening Assessment: * Assessment: 1. C olon cancer screening - Z12.11 (Primary) 2 . P ersonal history of colonic polyps - Z86.0100 3 . C olon polyps - K63.5 Plan: * Procedure Codes: G 0105 COLOREC CANCR SCR; COLNSCPY HI [id number] COLONOSCOPY AND [id number] INTRVL 3+YRS PTS CLNSCP DOCD Billing Information: * Procedure Codes: G0105 COLOREC CANCR SCR; COLNSCPY HI RISK. 56219 COLONOSCOPY AND BIOPSY. 0529F INTRVL 3+YRS PTS CLNSCP DOCD. * The named appointment provid er may or may not be the originator of this progress note, and it is not deemed complete until electronically signed by the appointment provider. Sign off status: Pending * Provider: Uzma Diana MD Date: 0 07/28/2024 Generated for Thien turner/Bandar/Darnell on: 07/27/2024 03:19 PM EST
[2025-05-27 13:13] LABS: Hematocrit 41.5 % (37.0-47.0); Hemoglobin 13.1 g/dl (12.0-16.0); Mean Corpuscular HGB Conc 31.6 g/dl (31.0-35.0); Mean Corpuscular Hemoglobin 30.3 pg (27.0-33.0); Mean Corpuscular Volume 95.8 fL (80.0-98.0); NRBC Abs Auto 0.000 X10*3/uL (0.0-0.012); NRBC Pct Auto 0.0 /100WBC (0.0-0.2); Platelet Count 216 X10*3/uL (160-400); Red Blood Count 4.33 X10*6/uL (4.20-5.50); White Blood Count 4.7 X10*3/uL (4.8-10.8)
[2025-05-27 13:36] LABS: Appearance Urine Clear; Glucose Urine UA Negative (Negative); PH 8.5 (5.0-9.0); Specific Gravity - Urine 1.015 (1.005-1.025)
[2025-05-27 13:47] LABS: Alanine Aminotransferase 16 U/L (0-31); Albumin Level 3.8 g/dL (3.5-5.0); Alkaline Phosphatase 96 U/L (39-117); Anion Gap 7 (12-20); Aspartate Amino Transferase 26 U/L (5-31); Blood Urea Nitrogen 15 mg/dL (9-16); Calcium 9.1 mg/dL (8.4-10.2); Carbon Dioxide 30 mmol/L (22-29); Chloride 110 mmol/L (96-108); Cholesterol 176 mg/dL (<200); Estimated Glomerular Filt Rate > 60; HDL Cholesterol 62 mg/dL (>40); Potassium 4.2 mmol/L (3.3-5.1); Sodium 143 mmol/L (135-145); Thyroid Stimulating Hormone 1.97 uIU/mL (0.32-4.0); Total Protein 6.1 g/dL (6.5-8.0); Triglycerides 106 mg/dL (<150)
--- OUTSIDE RECORDS SUMMARY | 2025-05-27 15:20 | XMS_ITS | Encounter Summary ---
Author Organization [facility] Address [address] [place] [address] Care Team Providers Care Catch Basin Cleaner Name Role Phone Pcp, No Primary Care Provider Alexis Redd MD Primary Care Provider + Encounter Details Date Type Department Care Team (Late st Contact Info) Description 03/31/2025 Scanned Document [facility] [address] [place] [phone] Bashir Brown MD [address] [place] [address] [address] [place] [address] Social History Tobacco Use Types Packs/Day Years Used Date Smoking Tobacco: Never Assessed Comments Unknown Sex and Gender Information Value Date Recorded Sex Assigned at Female 04/23/2025 12:13 PM EDT Legal Sex Female 6:20 PM EST Gender Identity Female 04/23/2025 12:13 PM EDT Sexual Orientation Heterosexual (straight) 04/23 12:13 PM EDT documented as of this encounter Plan of Treatment Not on file documented as of this encounter Visit Diagnoses Not on filedocumented in this encounter Care Teams Catch Basin Cleaner Relationship Specialty Start Date End Date Pcp, No PCP - General General Medicine 04/23/25 05/02/25 Alexis Almeida MD [address] [place] [address] PCP - General Internal Medicine 05/03/25 documented as of this encounter
--- OUTSIDE RECORDS SUMMARY | 2025-05-27 15:20 | XMS_ITS | Clinical Summary ---
Author Organization [facility] Address [address] [place] [address] Care Team Providers Care Manual Arts Therapist Name Role Phone Alexis Almeida MD Primary Care Provider + Encounters Date Type Department Care Team Description 05/03/2025 11:20 AM EDT Ancillary Procedure Orthopedic [address] [phone] 05/03/2025 11:15 AM EDT Consult Orthopedic [address] [phone] Bashir Brown MD Status post total replacement of right hip (Primary Dx); Iliotibial band syndrome of right side 03/31/2025 Scanned Document [facility] [address] [phone] Bashir Brown MD from Last 3 Months Social History Tobacco Use Types Packs/Day Years Used Date Smoking Tobacco: Never Assessed Comments Unknown Sex and Gender Information Value Date Recorded Sex Assigned at Female 04/23/2025 12:13 PM EDT Legal Sex Female 6:20 PM EST Gender Identity Female 04/23/2025 12:13 PM EDT Sexual Orientation Heterosexual (straight) 04/23 12:13 PM EDT Plan of Treatment Health Maintenance Due Date Last Done Comments Advance Care Planning 1950 Hepatitis C Virus Screening 1950 DTaP/Tdap/Td Vaccines (1 - Tdap) 1968 Mammogram 1989 Colonoscopy 1994 Pneumococcal Vaccines 50+ (1 of 1 - PCV) 1999 Zoster (Shingles) Vaccine (1 of 2) 1999 DXA Bone Density (Females,Ag es 65 and older) 2014 RSV Vaccine 50 years and old er and Patients (1 - 1-dose 75+ series) 2024 Influenza Vaccine 02/05/2025 COVID-19 Vaccine (2023-2 5 season) 2025 Hepatitis B Vaccines Aged Out No long er eligible based on patient's age to complete this topic Procedures Procedure Name Priority Date/Time Associated Diagnosis Comments XR HIP W PELVIS 2 OR 3 VIEWS-RIGHT Routine 05/03/2025 11:22 AM EDT Status post total replacement of right hip ERYTHROCYTE SEDIMENTATION RATE (ESR) Routine 04/07/2025 12:27 PM EDT Status post total replacement of right hip C-REACTIVE PROTEIN Routine 04/07/2025 12 :27 PM EDT Status post total replacement of right hip from Last 3 Months Results * XR Hip w pelvis 2 or 3 views-Right (05/03/2025 11:22 AM EDT) Narrative [facility] - 05/03/2025 11:22 AM EDT This exam was performed in office at [facility] and images reviewed by orthopedic provider. Any findings are documented within ambulatory encounter note on date of service. Bashir Brown MD IMG DIAGNOSTIC IMAGING ORDERA BLES Final Result [facility] * Erythrocyte Sedimentation Rate (ESR) (04/07/2025 12:27 PM EDT) Erythrocyte Sediment Rate (ESR) 14 < OR = 30 mm/h [employer] Blood Blood specimen / Unknown 04/07/2025 12:27 PM EDT 04/07/2025 12:28 PM EDT Bashir Brown MD LAB BLOOD ORDERABLES Final Re sult [facility] [address] [place] [address] * C-REACTIVE PROTEIN (04/07/2025 12:27 PM EDT) C-Reactive Protein <3.0 <8.0 mg/L [employer] Blood Blood specimen / Unknown 04/07/2025 12:27 PM EDT 04/07/2025 12:28 PM EDT Bashir Brown MD LAB BLOOD ORDERABLES Final Re sult [facility] [address] [place] [address] from Last 3 Months Insurance MEDICARE PART A & B [facility] Care Teams Manual Arts Therapist Relationship Specialty Start Date End Date Alexis Almeida MD [address] [place] [phone] PCP - General Internal Medicine 05/03/25
--- OUTSIDE RECORDS SUMMARY | 2025-05-27 15:20 | XMS_ITS | Patient Health Record ---
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) Neuritis of left foot (G57.92) Active confirmed Problem Acquired hammer toe of right foot (3989200136657112 ) Hammertoe of right foot (M20.41) Active confirmed Problem Ulcer of toe of right foot (disorder) (4732816052823430 1) Skin ulcer of toe of right foot, limited to breakdown of skin (L97.511) Active confirmed Response to treatment,No napplicable Problem Localized, primary osteoarthritis of the ankle and/or foot (721120961) Arthritis of joint of lesser toe, right (M19.071) Active confirmed Problem Ulcer of toe of left foot (disorder) (9290788881951556 2) Skin ulcer of toe of left foot, limited to breakdown of skin (L97.521) Active confirmed Response to treatment Plan Of Treatment Pending Test Test Name Order Date [id number] Destruction, 1-14 04/13/2024 [id number] Plate 04/13/2024 63700- Debride <25 sq cm 04/27/2024 Insurance Providers Payer Name Payer Address Payer Phone Subscriber Number Group Number Insured Name Patient Relationship to Insured Coverage Start Date Coverage End Date Medicare National [employer] [address] [facility] [place] [address] [id number] Meredith Casey Self - patient is the insured [facility] ([facility]) [address] [place] [address] [phone] [id number] Meredith Casey Self - patient is [...]
--- OUTSIDE RECORDS SUMMARY | 2025-05-27 15:20 | XMS_ITS | Patient Health Record ---
Author Organization [facility] Address [address] [place] [address] Care Team Providers Care Perinatal Technician Name Role Phone Chad (RETIRED) Brenton JACKSON Primary Care Provid er Unavailable Wallace Diana Jr Unavailable Allergies Allergen (clinical drug ingredient) Drug/Non Drug Allergy documented on EMR Reaction Allergy Type Onset Date Status codeine Codeine Sulfate Unknown Drug Allergy A ctive morphine Morphine Sulfate Unknown Drug Allergy Active Results Component Value Reference Range Notes Pathology Reviewed date:08/05/2024 08:12:04 AM Interpretation: Performing Lab:[facility], [address] [place] [id number] Notes/Report: Reason For Referral No Information Medications Medication SIG (Take, Route, Frequency, Duration) Notes Start Date End Date Status Melatonin 3 MG Tablet 1 tablet at bedtim e as needed Orally Once a day; Duration: 30 day(s) Active Advil 200 MG Capsule 1 capsule with food or milk as needed Orally Three times a day/prn Active Sleep Aid 25 MG Tablet 1 tablet at bedti me as needed Orally Once a day; Duration: 30 day(s) Active Wegovy 2.4 MG/0.75ML Solution Auto-injector 0.75 mL Subcutaneous; Duration: 30 day(s) Active Meloxicam 15 MG Tablet 1 tablet Orally O nce a day; Duration: 30 day(s) Active Vitamin B 12 100 MCG Lozenge as directed Orally Active Vitamin D 1000 UNIT Tablet 1 tablet Oral ly Once a day; Duration: 30 day(s) Active tiZANidine HCl 4 MG Tablet 1 tablet at b edtime as needed Orally Once a day; Duration: 30 day(s) Active Atorvastatin Calcium 20 MG Tablet 1 tablet Orally Once a day Active Myrbetriq 50 MG Tablet Extended Release 24 Hour 1 tablet Orally Once a day Active traMADol HCl 50 MG Tablet 1 tablet as ne eded Orally Once a day Active Sodium Sulfacetamide Wash 10 % Liquid 1 application Externally Act karina Synthroid 50 MCG Tablet 1 tablet on an e mpty stomach in the morning Orally Once a day Active Aller-Ease Active Multi Vitamin/Minerals - Tablet as directed Orally once a day Active Immunizations Vaccine Route Administration Date Status Comme nts Influenza Unknown 05/29/2018 Administered Influenza Unknown 05/21/2023 Administered Social History Tobacco Use: Social History Observation Description Date Details (start date - stop date) Former Smoker NA - NA Social History Drugs/Alcohol: Social Info Question Answer Notes Alcohol Screen Did you have a drink containing alcohol in the past year? Yes How often did you have a drink containing alcohol in the past year? 4 or more times a week (4 points) How many drinks did you have on a typical day when you were drinking in the past year? 1 or 2 drinks (0 point) How often did you have 6 or more drinks on one occasion in the past year? Never (0 point) Points 4 Interpretation Positive Tobacco Use: Social Info Question Answer Notes Tobacco Use/Smoking Patient is a former smoker How long has it been since you last smoked? > 10 years Additional Details Category Social Info Options Details Miscellaneous: Marital status: single Occupation: retired Problems Problem Type SNOMED Code ICD Code Onset Dates Problem Status W/U Status Risk Notes Problem Colon cancer screening (294216640) Colon cancer screening (Z12.11) Active confirmed Problem longterm current use of non-steroidal anti-inflammat ory drug (9681034763148 03) exterminator (current) use of non-steroidal anti-inflammatori es (NSAID) (Z79.1) Active confirmed Problem Long-term current use of drug therapy (832418930) Long-term current use of high risk medication other than anticoagulant (Z79.899) Active confirmed Encounters Encounter Location Date Provider Diagnosis [facility] [address] [place], [place] [phone] 07/28/2024 Wallace Diana Jr Colon cancer screening Z12.11 ; Personal history of colonic polyps Z86.0100 and Colon polyps K63.5 [facility] [address] [place] [address] 06/08/2024 Wallace Diana Jr [facility] [address] [place] [address] 08/05/2024 Wallace Diana Jr Assessments Encounter Date Diagnosis (ICD Code) Assessment Notes Treatment Notes Treatment Clinical Notes Section Notes 07/28/2024 Colon cancer screening (ICD-10 - Z12.11) 07/28/2024 Personal history of colonic polyps (ICD-10 - Z86.0100) 07/28/2024 Colon polyps (ICD-10 - K63.5) Plan Of Treatment Future Test Test Name Order Date COLONOSCOPY 04/22/2019 COLONOSCOPY 05/18/2024 Insurance Providers Payer Name Payer Address Payer Phone Subscriber Number Group Number Insured Name Patient Relationship to Insured Coverage Start Date Coverage End Date MEDICARE OF [place] [address] [facility] [place] [address] [id number] ALYSA VELARDE Self - patient is the insured [employer] ([employer]) [address] [place] [address] [id number] ALYSA VELARDE Self - patient is the insured Medical (General) History Medical History History ICD Code KANIKA/CPAP Hypothyroidism Hyperlipidemia Postnasal drip Rosacea Elevated BMI Colonoscopy 06/25, tubular adenoma, five -year followup Surgical History Surgery Date(Month/Year) lap band/removed [id number] back surgery, L 2-3 decompression 2014 umbilical hernia repair bartholin cyst removed torn meniscus left knee right hip replacement 10/26/2022
== END 2025-05-27 10:21 | disposition home or self-care (01) ==
LOC: HO.HMGCLDS 10:20
PROVIDERS: PCP Internal Medicine; Visit Provider Internal Medicine
DX: E78.00 Pure hypercholesterolemia, unspecified (principal)
CPT/HCPCS: 36415; 80048; 80061; 80076; 81003; 84443; 85027

== ENCOUNTER 2025-07-06 13:57 | Outpatient (AMB) | payer MEDICARE, OTHER, SELFPAY ==
[2025-07-06 14:03] VITALS: BP 142/65; PULSE 56; RESP 14; TEMP 36.6; O2SAT 99; BMI 38.0
--- NOTE | 2025-07-06 14:03 | MHC.PC.OV ---
Vital Signs 07/06/25 14:03 Height 5 ft 4.5 in Weight 225 lb BMI 38.0 BP 142/65 H Blood Pressure Location Rt brachial Position Sitting Respiration 14 Pulse 56 Pulse Source Pulse Oximeter Temp 97.8 F Temp Source Temporal Artery Scan Pulse Oximetry (%) 99 Oxygen Delivery Method Room Air Intake Visit Reasons: Pre-op Tenex 07/15/2025 Nurse Anesthetist Required: No Accompanied by: Self / Same As Patient Allergies codeine (CODEINE) Allergy (Intermediate, Verified 07/06/25 14:04) HALLUCINATION morphine (MORPHINE) Allergy (Intermediate, Verified 07/06/25 14:04) NAUSEA & VOMITING, HALLUCINATIONS, nausea and vomiting Codeine Phosphate Allergy (Unknown, Uncoded 07/06/25 14:04) nausea and vomiting Tobacco use date assessed: 11/13/24 Dental Screening Dental Screen Date: 11/13/24 HPI HPI Comments History of Present Illness Details History of Present Illness - The patient is a 75-year-old female presenting for pre-operative clearance for a Tenex procedure for chronic left leg pain. - Her procedure was originally scheduled for the but was canceled due to a communication error; the specialist's office had an incorrect cell phone number and contacted her only two days prior to the procedure. - She was instructed to stop Wegovy seven days before the procedure, but she had taken it the day before being contacted, leading the surgeon to cancel due to risks of regurgitation. - The procedure is now rescheduled for the . - She has a history of back surgery with hardware and hip surgery. - The patient denies any changes in her health since her last visit. - The patient's current medications include Wegovy 2.4 mg and meloxicam. - She previously did not require prophylactic antibiotics for dental work related to her back surgery but was taking them for her hip prosthesis; she has now been informed they are no longer necessary per new guidelines. Social History Results - Labs: Last blood work was completed on May 27. - EKG: Normal. [facility] Medical History History of mammogram (~03/21/24) Knee pain Establishing care with new doctor, encounter for Hypothyroidism (acquired) Hyperlipidemia LDL goal <100 Chronic pain syndrome Nausea Heart burn Class 2 obesity with body mass index (BMI) of 37.0 to 37.9 in adult KANIKA on CPAP Obesity (BMI 30-39.9) Urinary urgency Rosacea Hypothyroidism Hypercholesteremia Surgical History History of colonoscopy (~07/28/24) History of right hip replacement (10/26/22) Hx of umbilical hernia repair History of removal of laparoscopic gastric banding device (~2018) Hx of laparoscopic gastric banding (~2009) H/O Spinal surgery (~2014) Family History Father No problems noted. Mother No problems noted. Social History Housing: Condominium Alcohol intake: current Alcohol intake frequency: holidays/special occasions only Patient Tobacco Use Status: Former Tobacco user service: No Current occupational status: retired Cognitive needs: Yes (cane, walker when needed) Hearing needs: No Vision needs: Yes (rx glasses) Questionnaire PHQ-9 Over the last 2 weeks, how often have you been bothered by any of the following problems? 1. Little interest or pleasure in doing things: not at all 2. Feeling down, depressed, or hopeless: not at all 3. Trouble falling or staying asleep, or sleeping too much: not at all 4. Feeling tired or having little energy: not at all 5. Poor appetite or overeating: not at all 6. Feeling bad about yourself - or that you are a failure or have let yourself or your family down: not at all 7. Trouble concentrating on things, such as reading the newspaper or watching television: not at all 8. Moving or speaking so slowly that other people could have noticed. Or the opposite - being so fidgety or restless that you have been moving around a lot more than usual: not at all 9. Thoughts that you would be better off or of hurting yourself in some way: not at all Total score: 0 Depression Screening Interpretation: Negative Depression Screening Done: Yes 24554 - PHQ-9 Billing: Yes Source: Developed by Drs. Brenton De La Rosa, Silvia Monk, Fawad Salazar and colleagues, with an educational shiv from [employer]. Thrive Questionnaire Date Thrive assessed: 11/13/24 I am a: Patient What is your living situation today?: I have a steady place to live Within the past 12 months, did the food you bought not last and you didn't have the money to get more?: Never true Within the past 12 months, did you worry whether your food would run out before you got money to buy more?: Never true Do you have trouble paying for medicines?: No Do you have trouble getting transportation to medical appointments?: No Do you have trouble paying your heating and electricity bill?: No Do you have trouble taking care of your child, family member or friend?: No Do you have trouble with day-to-day activities such as bathing, preparing meals, shopping, managing finances, etc.?: No Are you currently unemployed and looking for a job?: No Are you interested in more education?: No Please select the resources that you would like help with: None THRIVE Score: 0 AUDIT C Alcohol Use Questionnaire (AUDIT-C) 1. How often do you have a drink containing alcohol?: Never 3. How often do you have six or more drinks on one occasion?: Never Total Score: 0 Score Reviewed/Action Taken: No EDWINA-7 AMB Questionnaire EDWINA-7 Date EDWINA - 7 assessed: 11/13/24 Feeling nervous, anxious, or on edge: 0 = Not at all Not being able to stop or control worryin = Not at all Worrying too much about different things: 0 = Not at all Trouble relaxin = Not at all Being so restless that it is hard to sit still: 0 = Not at all Becoming easily annoyed or irritable: 0 = Not at all Feeling afraid as if something awful might happen: 0 = Not at all Total EDWINA-7 score (0-4 normal; 5-9 mild; 10-14 moderate; 15-21 severe): 0 Source: Developed by Drs. Brenton De La Rosa, Silvia Monk, Fawad Salazar and colleagues, with an educational shiv from [employer]. EDWINA-7 Assessment Billing EDWINA-7 Assessment Tool: EDWINA-7 Assessment 40057 Review of Systems Narrative Review of Systems - General: Denies any changes in health. - Musculoskeletal: Reports chronic left leg pain. Physical exam (Primary Care) Vital Signs: Last Vital Signs Temp 97.8 F 07/06/25 14:03 Pulse 56 07/06/25 14:03 Resp 14 07/06/25 14:03 BP 142/65 H 07/06/25 14:03 Pulse Ox 99 07/06/25 14:03 Oxygen Delivery Method Room Air 07/06/25 14:03 BMI result Body Mass Index 38.0 Tobacco/Smoking Status: Tobacco use Status Tobacco use date assessed 11/13/24 07/06/25 14:05 Patient Tobacco Use Status Former Tobacco user 07/06/25 14:05 PHQ-9: PHQ-9 Score PHQ-9: Total score 0 07/06/25 14:14 Depression Screening Interpretation: Negative Thrive Assessment: Date of Thrive Assessment Date Thrive assessed 11/13/24 07/06/25 14:05 Narrative Physical Exam General: Cooperative and healthy appearing Nutritional Appearance: Well nourished Orientation/consciousness: Patient oriented x3 Limitations: No limitations Head: Normal to inspection General: Appearance normal, both eyes and all related structures Neck: Normal visual inspection Chest: Normal palpation of entire chest wall Respiratory: Normal respiratory effort Neurology: Patient oriented x3 Office Procedures EKG Details: NSR 58349-Qwmdrhagqqsxtthkl, Complete Coding Level of Care Code Est Pt Level 4 (33101) Add On Problem Visit Only Diagnoses Hypercholesteremia E78.00 CPT Codes EKG - CPT: 05103-Buheocfdplrepnwgv, Complete ([id number]) Additional Codes EDWINA-7 Assessment Billing - EDWINA-7 Assessment Tool: EDWINA-7 Assessment 42141 ([id number]) PHQ-9 - 68199 - PHQ-9 Billing: Yes ([id number]) Assessment & Plan Assessment & Plan (1) Hypercholesteremia: Code(s): E78.00 - Pure hypercholesterolemia, unspecified Category: Medical Plan Plan - The patient is cleared for the Tenex procedure. - New blood work will be ordered to ensure up-to-date pre-operative clearance, though it may not be strictly necessary. - The results of the bloodwork, along with her recent EKG and last office visit notes, will be sent to Dr. Carpenter's office. - A refill for Wegovy 2.4 mg will be sent. - A prescription for meloxicam will be sent to [facility] as requested by the patient. - The patient was advised that prophylactic antibiotics before dental procedures are no longer required based on current guidelines. - The patient will check with the administrative assistant front desk regarding her next follow-up appointment. Discussion Notes I discussed with the patient her pre-operative clearance for the upcoming Tenex procedure. We reviewed that her previously scheduled surgery was canceled because she was contacted too late to stop her Wegovy in time, which is a risk for regurgitation during the procedure. I informed her that her EKG is fine and that while her last blood work from May is recent, I will order new labs to avoid any potential issues with the surgical team. I have provided clearance for the procedure and will forward her last office note, EKG, and the new blood work to Dr. Carpenter's office once the results are available. We also addressed medication refills; I will send in her Wegovy and have sent the meloxicam prescription to [facility] as she requested. Furthermore, I clarified that based on new guidelines, she no longer needs to take prophylactic antibiotics for her hip prosthesis before dental procedures. The patient was advised to keep her regularly scheduled follow-up appointment. Patient Instructions - Please go to the lab to have your blood work done for your pre-operative clearance. - You do not need to fast for the blood test. - This office will send your clearance paperwork, including the EKG and new lab results, to Dr. Carpenter's office. - Your prescription for Wegovy has been refilled. - Your prescription for meloxicam has been sent to [facility] pharmacy. - You no longer need to take antibiotics before your dental appointments. - Please check with the administrative assistant front desk to confirm your next scheduled follow-up appointment. Orders: Orders Thyroid Stimulating Hormone Today E78.00 - Pure hypercholesterolemia, unspecified UA and rflx microscopic Today E78.00 - Pure hypercholesterolemia, unspecified Complete Blood Count no Diff Today E78.00 - Pure hypercholesterolemia, unspecified Basic Metabolic Panel Today E78.00 - Pure hypercholesterolemia, unspecified Liver Panel Today E78.00 - Pure hypercholesterolemia, unspecified AMB EKG-In Office Today E78.00 - Pure hypercholesterolemia, unspecified Medications: New meloxicam 15 mg PO DAILY 30 tabs 0RF Refilled semaglutide (weight loss) (Wegovy) 2.4 mg (0.75 mL) subcut QWEEK 3 mL 3RF E66.9 - Obesity, unspecified, E78.00 - Pure hypercholesterolemia, unspecified, E78.5 - Hyperlipidemia, unspecified, G89.4 - Chronic pain syndrome
--- OUTSIDE RECORDS SUMMARY | 2025-07-06 17:47 | XMS_ITS | Encounter Summary ---
Author Organization [facility] Address [address] [place] [address] Care Team Providers Care Splitting Machine Tender Name Role Phone Pcp, No Primary Care Provider Alexis Redd MD Primary Care Provider + Encounter Details Date Type Department Care Team (Late st Contact Info) Description 03/31/2025 Scanned Document [facility] [address] [place] [phone] Bashir Brown MD [address] [place] [address] Social History Tobacco Use Types Packs/Day Years [...] Care Team (Late st Contact Info) Description 07/15/2025 8:00 AM EST Appointment [facility] [address] [address] Bashir Brown MD [address] [place] [address] documented as of this encounter Visit Diagnoses Not on filedocumented in this encounter Care Teams Splitting Machine Tender Relationship Specialty Start Date End Date Pcp, No PCP - General General Medicine 04/23/25 05/02/25 Alexis Almeida MD [address] [place] [id number] PCP - General Internal Medicine 05/03/25 documented as of this encounter
--- OUTSIDE RECORDS SUMMARY | 2025-07-06 17:47 | XMS_ITS | Clinical Summary ---
Author Organization [facility] Address [address] [place] [address] Care Team Providers Care Tennis Ball Coverer Hand Name Role Phone Alexis Almeida MD Primary Care Provider + Allergies No known active allergies Medications aspirin enteric coated (ECOTRIN LOW STRENGTH) 81 MG EC tabletIndicatio ns:Iliotibial band syndrome of right side Take 1 tablet (81 mg total) by mouth 2 times a day. 56 tablet 06/21/2025 07/19/19 26 Active cephalexin (KEFLEX) 500 MG capsuleIndicati ons:Iliotibial band syndrome of right side Take 1 capsule (500 mg total) by mouth 4 (four) times a day. 4 capsule 06/21/2025 06/22/20 25 Encounters Date Type Department Care Team Description 05/03/2025 11:20 AM EDT Ancillary [facility] [address] [phone] 05/03/2025 11:15 AM EDT Consult [facility] [address] [phone] Bashir Brown MD Status post total replacement of right hip (Primary Dx); Iliotibial band syndrome of right side from Last 3 Months Social History Tobacco Use Types Packs/Day Years Used Date Smoking Tobacco: Never Assessed Comments Unknown Sex and Gender Information Value Date Recorded Sex Assigned at Female 04/23/2025 12:13 PM EDT Legal Sex Female 6:20 PM EST Gender Identity Female 04/23/2025 12:13 PM EDT Sexual Orientation Heterosexual (straight) 04/23 12:13 PM EDT Plan of Treatment Upcoming Encounters Date Type Department Care Team (Late st Contact Info) Description 07/15/2025 8:00 AM EST Appointment [facility] [address] [address] Bashir Brown MD [address] [facility] [address] [place] [address] Health Maintenance Due Date Last Done Comments Advance Care Planning 1950 Hepatitis C Virus Screening 1950 DTaP/Tdap/Td Vaccines (1 - Tdap) 1968 Pneumococcal Vaccines 50+ (1 of 1 - PCV) 1999 Zoster (Shingles) Vaccine (1 of 2) 1999 DXA Bone Density (Females,Ag es 65 and older) 2014 RSV Vaccine 50 years and old er and Patients (1 - 1-dose 75+ series) 2024 Influenza Vaccine 02/05/2025 COVID-19 Vaccine (1 - 2024-2 6 season) 2025 Hepatitis B Vaccines Aged Out [...] was performed in office at [facility] and images reviewed by orthopedic provider. Any findings are documented within ambulatory encounter note on date of service. us Bashir Brown MD IMG DIAGNOSTIC IMAGING ORDERA BLES Final Result OAH * Erythrocyte Sedimentation Rate (ESR) (04/07/2025 12:27 PM EDT) Erythrocyte Sediment Rate (ESR) 14 < OR = 30 mm/h [employer] Blood Blood specimen / Unknown 04/07/2025 12:27 PM EDT 04/07/2025 12:28 PM EDT Bashir Brown MD LAB BLOOD ORDERABLES Final Re sult Performing Organization Address [facility] Co de Phone Number [employer] [address] [place] [address] * C-REACTIVE PROTEIN (04/07/2025 12:27 PM EDT) C-Reactive Protein <3.0 <8.0 mg/L [employer] Blood Blood specimen / Unknown 04/07/2025 12:27 PM EDT 04/07/2025 12:28 PM EDT us Bashir Brown MD LAB BLOOD ORDERABLES Final Re sult Performing Organization Address [facility] Co de Phone Number [employer] [address] [place] [address] from Last 3 Months Insurance MEDICARE PART A & B [employer] Care Teams Tennis Ball Coverer Hand Relationship Specialty Start Date End Date Alexis Almeida MD [address] [place] [id number] PCP - General Internal Medicine 05/03/25
== END 2025-07-06 14:54 | disposition home or self-care (01) ==
LOC: HO.HMCSH 13:57
PROVIDERS: PCP Internal Medicine; Visit Provider Internal Medicine
DX: E78.00 Pure hypercholesterolemia, unspecified (principal)

== ENCOUNTER → 2025-07-06 13:57 | Outpatient (BNVA) | payer MEDICARE, OTHER, SELFPAY | PROVIDERS: PCP Internal Medicine; Visit Provider Internal Medicine | DX: Z01.818 Encounter for other preprocedural examination (principal); M79.605 Pain in left leg; G89.4 Chronic pain syndrome; E78.00 Pure hypercholesterolemia, unspecified; Z13.31 Encounter for screening for depression; Z13.39 Encounter for screening examination for other mental health and behavioral disorders; Z87.891 Personal history of nicotine dependence; Z87.39 Personal history of other diseases of the musculoskeletal system and connective tissue; Z98.890 Other specified postprocedural states | CPT/HCPCS: 93005; 96127; 99212 ==